=== PATIENT | female | born 1995 | race Caucasian/White ===

== ENCOUNTER 2019-10-01 03:43 | Inpatient (IN) | payer OTHER ==
[2019-10-01] MEDS ORDERED: MEPERIDINE HCL 25 MG/ML SYR IV PRN (04:14)
[2019-10-01] MEDS ORDERED: Ringers Lactate 1,000 ML IV PRN (04:14)
[2019-10-01] MEDS ORDERED: MIDAZOLAM HCL 2 MG/2 ML INJ IV PRN (04:14)
[2019-10-01] MEDS ORDERED: BUTORPHANOL 1 MG/ML INJ IV PRN (04:14)
[2019-10-01] MEDS ORDERED: METHYLERGONOVINE 0.2MG/ML AMP IM PRN (04:14)
[2019-10-01] MEDS ORDERED: PROMETHAZINE INJ 25 MG/ML AMP IM PRN (04:14)
[2019-10-01] MEDS ORDERED: CARBOPROST TROME 250 MCG/ML IM PRN (04:14)
[2019-10-01 04:47] LABS: Urine Appearance TURBID; Urine Bilirubin NEGATIVE (NEG); Urine Blood NEGATIVE (NEG); Urine Color YELLOW; Urine Glucose NEGATIVE (NEG); Urine Protein NEGATIVE (NEG); Urine Specific Gravity 1.015 (1.005-1.030); Urine Urobilinogen 0.2 mg/dL (0.2-1.0)
[2019-10-01 04:48] LABS: Urine Microscopic Reflex ORDER UMIC
[2019-10-01 04:50] LABS: Absolute Lymphocytes (CBC) 2.4 K/uL (0.7-4.9); Basophils % 0.2 % (0-1.3); Hematocrit 35.5 % (36.0-45.0); Lymphocytes % 16.1 % (15.3-44.8); RBC Red Blood Cell Count 4.05 M/uL (3.86-4.86)
[2019-10-01 04:59] LABS: Urine Culture Reflex Order REFLEXED
[2019-10-01 05:00] LABS: Calcium Oxalate Crystals- Ur FEW (NONE SEEN); Urine Amorphous Sediment 4+ /HPF (NONE SEEN); Urine Bacteria <20 /HPF (<20); Urine RBC NONE SEEN /HPF (NONE SEEN)
[2019-10-01] MEDS ORDERED: OXYTOCIN/LR 20 UNIT/1,000 ML BAG IV SCH ×2 (05:00→10:00)
[2019-10-01] MEDS ORDERED: Ringers Lactate 1,000 ML IV SCH (05:00)
[2019-10-01 05:51] VITALS: BMI 33.5
[2019-10-01] MEDS ORDERED: LIDOCAINE 1% MPF 30 ML VIAL ONE (08:32)
--- NOTE | 2019-10-01 08:44 | PREOPHP ---
Date of Admission: 10/01/2019 Ms. Rae Gomez is a 24-year-old 2, para 1, 39 weeks 1 day, Rh positive, immune to Rub judi. Negative beta strep screen. 3.5 cm, still somewhat posterior, 50% effaced, vertex, -1 station . Rupture of membranes, clear fluid. Maki regularly. Baby looks good on the monitor. Patirani nt states that the baby has been very active. Labor talk given. Patient is planning on natural chil dbirth. Anticipate more rapid delivery once she achieves 5 cm. SERGIO/POLA Voice ID: [id number]
[2019-10-01] MEDS ORDERED: ACETAMINOPHEN 500 MG TAB PO PRN (09:33)
[2019-10-01] MEDS ORDERED: DOCUSATE NA/SENNA CONC 1 TAB PO PRN (09:33)
[2019-10-01] MEDS ORDERED: BISACODYL 10 MG RECTAL SUPP RC PRN (09:33)
[2019-10-01] MEDS ORDERED: IBUPROFEN 600 MG TAB PO PRN (09:33)
[2019-10-01] MEDS ORDERED: Oxycodone HCl/Acetaminophen 1 TAB TAB PO PRN ×2 (09:33)
[2019-10-01] MEDS ORDERED: DIPHENHYDRAMINE 25 MG TAB/CAP PO PRN (09:33)
--- NOTE | 2019-10-01 11:00 | OP ---
Surgeon: Randy Ybarra MD History: A 24-year-old 2, para 1, 39 weeks 1 day, Rh positive, immune to Rubella. Negative beta strep screen, followed antepartum without complications. 3.5 cm when examined this morning. Ru pture of membranes, clear fluid. Patient went natural childbirth second stage of about 25 to 30 maciel wiliam, spontaneous vaginal delivery over a small first degree episiotomy of a 10-pound 2-ounce male Apg ars 9 and 9. Schultze delivery of the placenta, which was inspected and noted be intact and normal. Less than 300 mL blood loss. No signs of hypotonus at this point. Repair with local anesthetic of the first degree episiotomy. Patient tolerated all procedures well. Final Diagnoses: Term intrauterine 39 weeks 1 day, vaginal delivery. macrosomia. SERGIO/POLA Voice ID: [id number] Report ID: [id number]
[2019-10-01] MEDS ORDERED: Ringers Lactate 1,000 ML IV ONE (15:18)
[2019-10-02 03:35] LABS: RPR (Rapid Plasma Reagin) NON-REACT (NON-REACT)
[2019-10-02 07:01] VITALS: BP 122/63; TEMP 97.1
--- NOTE | 2019-10-02 07:52 | DS ---
Hospital Course: Rae Gomez is a 24-year-old 2, para 1, at 39 weeks 1 day, delivered uneventfully of a 10 pounds 2 ounces male , Apgars 9 and 9. Small first degree episiotomy rep aired with 2-0 chromic. Schultze delivery of the placenta, was inspected and noted be intact and nor mal. Less than 300 mL blood loss. Rh positive, immune to Rubella. Negative beta strep screen. Pos tpartum is afebrile, ambulating and voiding. No problems reported. She requested no analgesics on d ismissal. She has had her Tdap immunization. Final Diagnoses: Term intrauterine 39 weeks 1 day, vaginal delivery, macrosomia. SERGIO/POLA Voice ID: [id number] Report ID: [id number]
[2019-10-05 04:24] LABS: HBsAG Nonreactive (Nonreactive)
== END 2019-10-02 11:20 | disposition home or self-care (01) | DRG 807 ==
LOC: 2ND-WC 03:43
PROVIDERS: ADMIT Specialist; ATTEND Specialist
PROC: 10E0XZZ Delivery of Products of Conception, External Approach (ICD-10-PCS; principal; 2019-10-01)
PROC: 10907ZC Drainage of Amniotic Fluid, Therapeutic from Products of Conception, Via Natural or Artificial Opening (ICD-10-PCS; 2019-10-01)
PROC: 0W8NXZZ Division of Female Perineum, External Approach (ICD-10-PCS; 2019-10-01)
DX: O36.63X0 Maternal care for excessive fetal growth, third trimester, not applicable or unspecified (principal); Z37.0 Single live birth; Z3A.39 39 weeks gestation of pregnancy
CPT/HCPCS: 36415; 80048; 80076; 81001; 81003; 81015; 84550; 85025; 85610; 85730; 86592; 87086; 87088; 87340; 99218; J0595; J2210; J2550; J2590; J7120

== ENCOUNTER 2019-11-11 07:38 | Day surgery (SDC) | payer OTHER ==
[2019-11-03 16:29] LABS: ALT/SGPT 38 U/L (12-78); AST/SGOT 24 U/L (15-37); Albumin 4.4 g/dL (3.4-5.0); Alkaline Phosphatase 81 U/L (45-117); Amylase 28 U/L (25-115); BUN Blood Urea Nitrogen 9 mg/dL (7-18); Bicarbonate 29 mmol/L (21-32); Bilirubin Direct < 0.1 mg/dL (0-0.2); Bilirubin Total 0.5 mg/dL (0.2-1.0); Glucose Level 91 mg/dL (74-106); Protein, Total 8.8 g/dL (6.4-8.2); Sodium Level 138 mmol/L (136-145)
[2019-11-03 16:31] LABS: Basophils % 0.4 % (0-1.3); Lymphocytes % 22.2 % (15.3-44.8); RBC Red Blood Cell Count 4.92 M/uL (3.86-4.86)
--- OUTSIDE RECORDS SUMMARY | 2019-11-11 07:44 | XMS REPORT | Summary of Care ---
:1995 Author Organization [facility] Address [address] [place] [id number] Care Team Providers Name Role Phone Jaye Nunez Primary Care Provider Reason for Visit Reason Comments Back Pain Rib Pain Encounter Details Date Type Department Care Team Description 10/23/2019 Urgent Care [facility] Family Vibha Contreras FNP [id number] [place] [address] Tachycardia (Primary Dx); Medicine - [place] Provider, [facility] Acute left-sided thoracic back pain; [address] [place] [address] SOB (short ness of breath) on [place] [address] Allergies Active Allergy Reactions Severity Noted Date Comments Copper Itching 02/10/2013 documented as of this encounter (statuses as of 10/23/2019) Medications Medication Sig Dispensed Refills Start Date End Date Status PNV Take by mouth. 0 Acti ve no.153/FA/om3/dha/epa/fi sh ( GUMMIES ORAL) Miscellaneous Medical Use as directed 1 Each 0 08/04/2019 Active Supply (BLOOD PRESSURE CUFF) MiscIndications: High-risk in third trimester documented as of this encounter (statuses as of 10/23/2019) Active Problems Problem Noted Date Constipation during , antepartum 03/03/2019 Multiparity 02/03/2019 High-risk in second trimester 02/03/2019 Influenza vaccination declined 02/03/2019 BMI 28.0-28.9,adult 10/31/2018 Estimated Date of Delivery Comments Yes 10/07/2019 Based on last menstr ual period of 12/31/2018 documented as of this encounter (statuses as of 10/23/2019) Resolved Problems Problem Noted Date Resolved Date Attempted IUD removal, unsuccessful 10/31/201801/15 Desire for 10/31/2018 02/03/2019 General counseling for prescription of oral contraceptives 1 10/31/2018 Encounter for routine gynecological examination 02/10/2013 10/31/2018 Overview: ICD10 Diagnosis Term [employer] Utility documented as of this encounter (statuses as of 10/23/2019) Immunizations Name Administration Dates Next Due TDAP 12/11/2009 TDAP (ADACEL) VACCINE 07/18/2019 documented as of this encounter Social History Tobacco Use Types Packs/Day Years Used Date Never Smoker Smokeless Tobacco: Never Used Alcohol Use Drinks/Week oz/Week Comments No Estimated Date of Delivery Comments Yes 10/07/2019 Based on last menstr ual period of 12/31/2018 Sex Assigned at Date Recorded Not on file Job Start Date Occupation Industry Not on file Not on file Not on file Travel History Travel Start Travel End No recent travel history available. COVID-19 Exposure Response Date Recorded In the last month, have you been in contact with Yes 10/23/2019 4:07 PM CDT someone who was confirmed or suspected to have Coronavirus / COVID-19? documented as of this encounter Last Filed Vital Signs Vital Sign Reading Time Taken Comments Blood Pressure 169/145 10/23/2019 4:11 PM CDT Pulse 160 10/23/2019 4:11 PM CDT Temperature 36.8 C (98.3 F) 10/23/2019 4:11 PM CDT Respiratory Rate 32 10/23/2019 4:11 PM CDT Oxygen Saturation 98% 10/23/2019 4:11 PM CDT Inhaled Oxygen Concentration - - Weight 77.6 kg (171 lb) 10/23/2019 4:11 PM CDT Height 162.6 cm (5' 4") 10/23/2019 4:11 PM CDT Body Mass Index 29.35 10/23/2019 4:11 PM CDT documented in this encounter Progress Notes [place], BENJY - 10/23/2019 4:40 PM CDT COVID-19 Screening Clinic: [facility] Patient Name: Rae Gomez Date of : 1995 24 year old Primary Care Physician: Jaye Nunez During this visit: Full PPE was used, mask, face shield, gown, and gloves Chief Complaint Chief Complaint Patient presents with Back Pain Rib Pain HPI Presenting with severe left upper back pain, rib pain and SOB that started this morning, patient states she thought it could be related to being gassy from uncooked oleary that she ate this morning but symptoms got worse. Patient states she can not take a deep breath due to the severe pain. Patient in tears due to pain, saying she can not breathe. Patient delivered a healthy baby about 3 weeks ago andreports she had ankle pain a week later but "my doctor was not worried about a blood clot" Past Medical History / Immunizations Past Medical History: Diagnosis Date Anemia during Kidney infection 06/03/2014 Past Surgical History No past surgical history on file. Allergies Allergies Allergen Reactions Copper Itching Review of Systems Review of Systems Constitutional: Negative for fever. Respiratory: Positive for shortness of breath. Negative for cough. Cardiovascular: Positive for chest pain and palpitations. Gastrointestinal: Negative for abdominal pain, diarrhea, nausea and vomiting. Musculoskeletal: Positive for back pain. Negative for gait problem. Skin: Negative for rash and wound. Neurological: Negative for weakness and headaches. Psychiatric/Behavioral: Negative for agitation and confusion. The patient is not nervous/anxious. All other systems reviewed and are negative. Physical Exam BP (!) 169/145 | Pulse 160 | Temp 36.8 C (98.3 F) (Oral) | Resp 18 | Ht 5' 4" (1.626 m) | Wt 171 lb (77.6 kg) | LMP 12/31/2018 | SpO2 98% | BMI 29.35 kg/m Physical Exam Constitutional: She is oriented to person, place, and time. She appears well- developed and well-nourished. She is active and cooperative. Non-toxic appearance. She does not have a sickly appearance. She appears ill. No distress. HENT: Head: Normocephalic and atraumatic. Right Ear: Hearing, tympanic membrane, external ear and ear canal normal. Left Ear: Hearing, tympanic membrane, external ear and ear canal normal. Nose: Nose normal. Right sinus exhibits no maxillary sinus tenderness and no frontal sinus tenderness. Left sinus exhibits no maxillary sinus tenderness and no frontal sinus tenderness. Mouth/Throat: Uvula is midline, oropharynx is clear and moist and mucous membranes are normal. No oropharyngeal exudate. Eyes: Pupils are equal, round, and reactive to light. Conjunctivae and EOM are normal. Right eye exhibits no discharge. Left eye exhibits no discharge. Neck: Normal range of motion. Neck supple. Cardiovascular: Regular rhythm and normal heart sounds. Tachycardia present. Pulmonary/Chest: Effort normal and breath sounds normal. Tachypnea noted. No respiratory distress. She has no wheezes. She has no rales. She exhibits no tenderness. Musculoskeletal: Normal range of motion. She exhibits no edema, tenderness or deformity. Neurological: She is alert and oriented to person, place, and time. Skin: Skin is warm and dry. No rash noted. She is not diaphoretic. No erythema. No pallor. Psychiatric: Her speech is normal and behavior is normal. Judgment and thought content normal. Her mood appears anxious. Cognition and memory are normal. Nursing note and vitals reviewed. Labs No results found for this or any previous visit (from the past 24 hour(s)). No results found. Orders and Treatments No orders of the defined types were placed in this encounter. Outpatient Encounter Medications as of 10/23/2019 Medication Sig Miscellaneous Medical Supply (BLOOD PRESSURE CUFF) [facility] Use as directed PNV no.153/FA/om3/dha/epa/fish ( GUMMIES ORAL) Take by mouth. No results found for this visit on 10/23/19. Diagnosis Patient ill appearing, tachypneic, tachycardia on exam Patient has left upper back pain that is severe and she states she is unable to take a deep breath due to "rib pain" Denies any falls or trauma. Appears anxious and crying in room due to pain. Report called to ER charge. Patient wheeled over to ER for further workup COVID swab was not completed. Rae was seen today for back pain and rib pain. Diagnoses and all orders for this visit: Tachycardia Acute left-sided thoracic back pain SOB (shortness of breath) on exertion Disposition & Follow Up ER for further work-up BENJY Cullen 10/23/2019 4:14 PM documented in this encounter Plan of Treatment Health Maintenance Due Date Last Done Comments HPV VACCINES (1 - Female 11/01/2019 Postpon ed from 2-dose series) 06/19/2006 (Refu sed) CHLAMYDIA SCREENING 02/04/2020 02/03/2019, 10/31/2018 INFLUENZA VACCINE (#1) 2020 Postponed from 12/16/2019 (Refu sed) Depression Screening 07/17/2020 07/18/2019 PAP SMEAR 10/31/2021 10/31/2018 DTaP,Tdap,and Td Vaccines (3 07/17/2029 07/18/2019, - Td) 12/11/2009 MENINGOCOCCAL B VACCINES Discontinued PNEUMOCOCCAL 0-64 YEARS Aged Out No longe r eligible based COMBINED SERIES on patient's age to complete this to [facility] documented as of this encounter Results Not on filedocumented in this encounter Visit Diagnoses Diagnosis Tachycardia - Primary Tachycardia, unspecified Acute left-sided thoracic back pain SOB (shortness of breath) on exertion Shortness of breath documented in this encounter Insurance Payer Benefit Plan / Subscriber ID Effective Dates Phone Addre ss Type Group [place] [employer] [place] [employer] xxxxxxxxx 2019-Presen Medicaid HEALTH PLAN - HEALTH t MANAGED MEDICAID documented as of this encounter Advance Directives Name Relationship Healthcare Agent Relationship Co mmunication James Mccollum Father Primary healthcare agent Vidal Gomez Spouse Primary healthcare agent Ellecullen Mccollum Mother Second alternate healthcare agent (Mobile)
--- OUTSIDE RECORDS SUMMARY | 2019-11-11 07:44 | XMS REPORT | Continuity of Care Document ---
:1995 Author Organization [facility] t Address [address] [place] [address] Care Team Providers Name Role Phone Provider, Urgent Care Attending Clinician Unavailable Mayi Tovar Attending Clinician Doctor Unassigned, Name Attending Clinician Unavailable Caden Perla Attending Clinician Problems This patient has no known problems. Allergies, Adverse Reactions, Alerts This patient has no known allergies or adverse reactions. Medications This patient has no known medications. Procedures This patient has no known procedures. Encounters Start End Encounter Admission Attending Care Care Encounter Source Date/Time Date/Time Type Type Clinicians Facility Department ID 2019-10-23 2019-10-23 Urgent Provider, [facility] [id number] 16:04:56 16:24:56 [facility] [id number] [facility] [id number] Professio [id number] [address]al [address] 2019-08-04 2019-08-04 Telemedici Jered [facility] [id number] 12:33:29 14:43:25 ne Visit Altagracia C [employer] PUBL[employer] [id number] REGIONAL [id number] MATERNAL [phone] & CHILD [facility] 2019-08-01 2019-08-01 Telephone RADHA Lawton [id number] 00:00:00 00:00:00 Altagracia C [employer]AZINE PUBLISHER [id number] REGIONAL [id number] MATERNAL [id number] & CHILD 107 [facility] 2019-07-29 2019-07-29 Telephone [facility] [id number] 00:00:00 00:00:00 Altagracia C MAGAZINE PUBLISHER [id number] [facility] [id number] MATERNAL [phone] & CHILD 107 [facility] 2019-07-18 2019-07-18 Routine [facility] [id number] 14:00:22 14:15:22 Altagracia C MAGAZINE PUBLISHER [id number] [facility] [id number] MATERNAL [id number] & CHILD 107 [facility] 2019-07-18 2019-07-18 Orders Doctor JOE [id number] 00:00:00 00:00:00 Only Unassigned, GLADYS [id number] [place] [facility] [id number] 2019-07-08 2019-07-09 Telemedici [facility] [id number] 08:22:02 15:52:14 ne Visit Jaye Negrete [employer]INE PUBL[employer] [id number] [facility] [id number] MATERNAL [phone] & CHILD 107 [facility] Results This patient has no known results.
[2019-11-11] MEDS ORDERED: Ringers Lactate 1,000 ML IV ONE ×2 (08:19→10:36)
[2019-11-11 08:30] LABS: Bilirubin Direct 0.1 mg/dL (0-0.2); Bilirubin Total 0.5 mg/dL (0.2-1.0); Protein, Total 8.5 g/dL (6.4-8.2)
[2019-11-11] MEDS ORDERED: FENTANYL CITR 100 MCG/2 ML ONE ×2 (08:32→10:09)
[2019-11-11] MEDS ORDERED: propofoL 200 MG/20 ML VIAL IV ONE (08:32)
[2019-11-11] MEDS ORDERED: ROCURONIUM 50 MG/5 ML VIAL IV ONE (08:33)
[2019-11-11] MEDS ORDERED: dexAMETHasone 10 MG/ML VIAL ONE (08:33)
[2019-11-11] MEDS ORDERED: MIDAZOLAM HCL 2 MG/2 ML INJ ONE (08:33)
[2019-11-11] MEDS ORDERED: LIDOCAINE 2% MPF 5 ML VIAL ONE (08:33)
[2019-11-11] MEDS ORDERED: KETOROLAC 30 MG/ML INJ ONE (08:34)
[2019-11-11] MEDS ORDERED: ONDANSETRON 4 MG/2 ML VIAL ONE (08:34)
[2019-11-11] MEDS ORDERED: CEFOXITIN/SWI 1gm 1 GM/10 ML SYR ONE (09:00)
[2019-11-11] MEDS ORDERED: GLYCOPYRROLATE 0.2 MG/ML SYR ONE (10:21)
[2019-11-11] MEDS ORDERED: NEOSTIGMINE 1 MG/ML -5 ML ONE (10:29)
[2019-11-11] MEDS ORDERED: Mastisol Adhesive Liq ONE (10:30)
[2019-11-11] MEDS: MEPERIDINE HCL 25 MG/ML SYR ONE ×2 (10:59→11:04)
[2019-11-11] MEDS: HYDROMORPHONE HCL 1 MG/ML INJ ONE ×2 (11:08→11:17)
[2019-11-11] MEDS ORDERED: PROMETHAZINE INJ 25 MG/ML AMP ONE (11:18)
[2019-11-11 11:45] VITALS: TEMP 97.9; O2SAT 100
[2019-11-11] MEDS ORDERED: HYDROCODONE/APAP 7.5/325 MG TAB ONE (12:04)
--- NOTE | 2019-11-11 12:16 | OP ---
Surgeon: Miguel Angel Walsh MD Unable to transcribe due to discernible audio /MODL Voice ID: [id number] Report ID: [id number]
[2019-11-11 12:45] VITALS: BP 141/73
--- NOTE | 2019-11-12 10:50 | OP ---
Surgeon: Miguel Angel Walsh MD Air Vice Marshal: MUKESH Zaidi. Preoperative Diagnoses: Chronic cholecystitis and cholelithiasis. Postoperative Diagnoses: Chronic cholecystitis and cholelithiasis. Procedure: Laparoscopic cholecystectomy. Estimated Blood Loss: Minimal. Specimen: Gallbladder. Findings: As above. Anesthesia: General. Complications: None. Disposition: The patient tolerated the procedure in stable condition, taken to Recovery in good gene ral condition. Description Of Procedure: The patient was brought to the OR and placed in supine position. General anesthesia was begun. The patient was prepped and draped in usual sterile fashion. Marcaine 0.5% wa s infiltrated locally. A 15-blade was used to make a 1 cm infraumbilical midline incision. Subcutan eous tissue was divided. Fascia was identified and divided. #1 Vicryl stay suture was placed. Stephanie toneal cavity was entered with blunt dissection. 12 mm trocar was placed into the peritoneal cavity under direct vision. Pneumoperitoneum was established and three 5 mm trocars were placed; 1 in the e pigastrium just to the right of midline and 2 in the right subcostal region. Laparoscopy revealed ch ronic inflammation of the gallbladder. Fundus retracted superiorly. Infundibulum was identified and retracted inferolaterally. Cystic duct and cystic artery were clearly identified with blunt dissect ion. Clips placed. Both structures divided. Cautery was used to remove the gallbladder from the li gail bed. Bleeding on the liver bed controlled with cautery. Gallbladder was retrieved through the u mbilicus via an EndoCatch bag. Right upper quadrant was examined. No evidence of bleeding or bile l eakage appreciated. Subsequently, all trocars were removed under direct vision. Stay sutures were t ied to each other to reapproximate the fascial defect. Subcutaneous wounds were irrigated. Bleeding controlled with cautery. 3-0 chromic used to approximate the subcutaneous tissue and close the skin. Sterile dressing was applied. The patient was awakened and taken to Recovery in good general condi tion. Discharge Note: The patient will go to Day Surgery and home when stable. Disposition: Home. Condition: Stable. Discharge Instructions: Resume home medications and diet. Activity as tolerated. No heavy lifting. Follow up in my office in 1 week. Call for appointment. Tylenol No. 3 one tablet p.o. q.4 p.r.n. pain. Remove outer dressing in 2 days. Shower. Keep wound clean and dry. Keep Steri-Strips on at all times and incentive spirometry as ordered. FLOYD/POLA Voice ID: [id number] Report ID: [id number]
== END 2019-11-11 12:35 | disposition home or self-care (01) ==
LOC: OR 07:38
PROVIDERS: ATTEND Surgery
PROC: 0FT44ZZ Resection of Gallbladder, Percutaneous Endoscopic Approach (ICD-10-PCS; principal; 2019-11-11 09:30)
DX: K80.10 Calculus of gallbladder with chronic cholecystitis without obstruction (principal); K21.9 Gastro-esophageal reflux disease without esophagitis; Z11.59 Encounter for screening for other viral diseases
CPT/HCPCS: 47562; 85025; 80048; 36415 ×2; 82150 ×2; 81025; 80076 ×2; 88304; 83690; U0002; J2704; J2550; J2250; J3010 ×2; J1100; J2175; J1170; J2710; J7120 ×2; J2405

== ENCOUNTER 2021-06-21 12:40 | Emergency (ER) | payer OTHER ==
--- OUTSIDE RECORDS SUMMARY | 2021-06-21 12:46 | XMS REPORT | Continuity of Care Document ---
:1995 Author Organization [facility] [place] t Address [address] [place] [address] Care Team Providers Name Role Phone Jennifer RICH Primary Care Physician Unavailable EZE Attending Clinician Unavailable Jennifer RICH Attending Clinician Unavailable Krzysztof RN, Mayra Attending Clinician Unavailable Roman CHANP, N Attending Clinician Hilario CHANP, R Attending Clinician Lab Attending Clinician Unavailable Grazyna Vogel Attending Clinician Doctor Unassigned, Name Attending Clinician Unavailable Visit, Nurse Attending Clinician Unavailable Caden OWENS Attending Clinician Unavailable Jurgen Goodman DO Attending Clinician Provider, Urgent Care Attending Clinician Unavailable Diane CTE TEACHER Attending Clinician FAYNE Attending Clinician Unavailable Nurse, Urgent Care Attending Clinician Unavailable Catalina Saldaña PA-C Attending Clinician Catalina SALDAÑA JR Attending Clinician Unavailable Maria L LOMELI Attending Clinician Unavailable Mayi COLINDRES Attending Clinician Unavailable Mayi Tovar Attending Clinician Mitesh Dyer MD Attending Clinician Resident Tanner Attending Clinician Unavailable Dayami Thompson Attending Clinician MITESH DYER Admitting Clinician Unavailable Mitesh Dyer MD Admitting Clinician Payers Payer Name Policy Type Policy Number Effective Date Expiration Date Grazyna OCHOA [id number] 2019 HEALTH 00:00:00 Advance Directives Directive Decision Effective Termination Comments Source Date Date Healthcare Agents on N/A Univ ersity FileNameRelationshSt[facility] [place] [facility] Agent Medical RelationshipCommunicationJocarondelet health Branch Mitchel [facility]Geising[facility] Care [phone] (Mobile) [email or web address] [facility] [phone] (Mobile) Problems Condition Condition Condition Status Onset Resolution Last Treating Co mments Source Name Details Category Date Date Treatment Clinician Date Rubella Rubella Disease Active Overview: Univ ers non-immune non-immune 07-22 Address i ty of status, status, 00:00: in [place] antepartum antepartum 00 postpartu [facility] m. [place] Clotting Clotting Disease Active Unive rs disorder disorder - ity of 00:00: [address] Obesity in Obesity in Disease Active U nivers 07-21 ity of 00:00: [address] BMI BMI Disease Active Univers 30.0-30.9, 30.0-30.9, 4-07 it y of adult adult 00:00: [address] Short Short Disease Active Univers interval interval 4-07 ity of between between 00:00: [place] pregnancie pregnancie 00 Me dical s s Branch affecting affecting in first in first trimester, trimester, antepartum antepartum Cramping Cramping Disease Active Unive rs affecting affecting 4-07 ity [place] , , [place] ante[place] antepartum 00 Me dical Branch Constipati Constipati Disease Active 2018- U nivers on during on during 1-18 ity of , , [place] ante[place] antepartum 00 Me dical Branch Multiparou Multiparou Disease Active 2018-04 U nivers s s 0-21 ity of 00:00: [place] [address] Medical Branch Supervisio Supervisio Disease Active 2018-04 U nivers n of high n of high 0-21 ity of risk risk 00:00: [place] , , 00 Me dical antepartum antepartum Br anch Influenza Influenza Disease Active 2018-04 Uni vers vaccinatio vaccinatio 0-21 it y of n declined n declined 00:00: [facility] Medical Branch Attempted Attempted Disease Active Uni vers IUD IUD 7-18 ity of removal, removal, 00:00: [place] unsuccessf unsuccessf 00 Me dical ul ul Branch BMI BMI Disease Active Univers 28.0-28.9, 28.0-28.9, 7-18 it y of adult adult 00:00: [place] [address] [facility] [place] Desire for Desire for Disease Active U nivers 7-18 ity of 00:00: [place] [address] [facility] [place] Allergies, Adverse Reactions, Alerts Allergy Allergy Status Severity Reaction(s) Onset Inactive Treating Comm ents Source Name Type Date Date Clinician COPPER DRUG Active ITCHING 2012-04 Univers INGREDI 0-28 ity of 00:00: [place] [address] [facility] [place] Copper Propensi Active Itching 2012-04 Univers ty to 0-28 ity of adverse 00:00: [place] reaction 00 Medical s [place] Social History Social Habit Start Date Stop Date Quantity Comments Source ASSERTION 2020-06-24 [facility] 00:00:00 [facility] [place] [facility] Exposure to Not sure [facility] SARS-CoV-2 [facility] (event) Branch Tobacco use and 2020-07-30 2020-07-30 Never used Universit y of exposure 00:00:00 00:00:00 [facility] [place] [facility] Alcohol intake 2020-07-30 2020-07-30 Ex-drinker University 00:00:00 00:00:00 (finding) [facility] [place] [facility] Sex Ass[birth year] Universit y of 00:00:00 00:00:00 [facility] [place] [facility] Smoking Status Start Date Stop Date Source Never smoker [facility] Medications Ordered Filled Start Stop Current Ordering Indication Dosage Frequency Signature Comments Components Source Medication Medication Date Date Medication? Clinician (SIG) Name Name Blood-Gluco Yes [id number] Use as Univers se Meter 4-08 directed ity of (FREESTYLE 00:00: [place] FREEDOM 00 Medical LITE) Kit Branch blood sugar 2021-0 Yes [id number] Use as Univers diagnostic 4-08 directed ity o f (FREESTYLE 00:00: [place] LITE 00 Medical STRIPS) Branch strip lancets 17 2020-0 Yes [id number] Use as U nivers gauge Misc 4-08 directed ity o f 00:00: [place] 00 Medical Branch Blood-Gluco 2020-0 Yes [id number] Use as Univers se Meter 4-08 directed ity of (FREESTYLE 00:00: [place] FREEDOM 00 Medical LITE) Kit Branch blood sugar 2020-0 Yes [id number] Use as Univers diagnostic 4-08 directed ity o f (FREESTYLE 00:00: [place] LITE 00 Medical STRIPS) Branch strip lancets 17 2020-0 Yes [id number] Use as U nivers gauge Misc 4-08 directed ity o f 00:00: [place] 00 Medical Branch Blood-Gluco 2020-0 Yes [id number] Use as Univers se Meter 4-08 directed ity of (FREESTYLE 00:00: [place] FREEDOM 00 Medical LITE) Kit Branch blood sugar 2020-0 Yes [id number] Use as Univers diagnostic 4-08 directed ity o f (FREESTYLE 00:00: [place] LITE 00 Medical STRIPS) Branch strip lancets 17 2020-0 Yes [id number] Use as U nivers gauge Misc 4-08 directed ity o f 00:00: [place] 00 Medical Branch Blood-Gluco 2020-0 Yes [id number] Use as Univers se Meter 4-08 directed ity of (FREESTYLE 00:00: [place] FREEDOM 00 Medical LITE) Kit Branch blood sugar 2020-0 Yes [id number] Use as Univers diagnostic 4-08 directed ity o f (FREESTYLE 00:00: [place] LITE 00 Medical STRIPS) Branch strip lancets 17 2020-0 Yes [id number] Use as U nivers gauge Misc 4-08 directed ity o f 00:00: [place] 00 Medical Branch Blood-Gluco 2020-0 Yes [id number] Use as Univers se Meter 4-08 directed ity of (FREESTYLE 00:00: [place] FREEDOM 00 Medical LITE) Kit Branch blood sugar 2020-0 Yes [id number] Use as Univers diagnostic 4-08 directed ity o f (FREESTYLE 00:00: [place] LITE 00 Medical STRIPS) Branch strip lancets 17 2020-0 Yes [id number] Use as U nivers gauge Misc 4-08 directed ity o f 00:00: [place] 00 Medical Branch Blood-Gluco 2020-0 Yes [id number] Use as Univers se Meter 4-08 directed ity of (FREESTYLE 00:00: [place] FREEDOM 00 Medical LITE) Kit Branch blood sugar 2020-0 Yes [id number] Use as Univers diagnostic 4-08 directed ity o f (FREESTYLE 00:00: [place] LITE 00 Medical STRIPS) Branch strip lancets 17 2020-0 Yes [id number] Use as U nivers gauge Misc 4-08 directed ity o f 00:00: [place] 00 Medical Branch Blood-Gluco 2020-0 Yes [id number] Use as Univers se Meter 4-08 directed ity of (FREESTYLE 00:00: [place] FREEDOM 00 Medical LITE) Kit Branch blood sugar 2020-0 Yes [id number] Use as Univers diagnostic 4-08 directed ity o f (FREESTYLE 00:00: [place] LITE 00 Medical STRIPS) Branch strip lancets 17 2020-0 Yes [id number] Use as U nivers gauge Misc 4-08 directed ity o f 00:00: [place] 00 Medical Branch Blood-Gluco 2020-0 Yes [id number] Use as Univers se Meter 4-08 directed ity of (FREESTYLE 00:00: [place] FREEDOM 00 Medical LITE) Kit Branch blood sugar 2020-0 Yes [id number] Use as Univers diagnostic 4-08 directed ity o f (FREESTYLE 00:00: [place] LITE 00 Medical STRIPS) Branch strip lancets 17 2020-0 Yes [id number] Use as U nivers gauge Misc 4-08 directed ity o f 00:00: [place] 00 Medical Branch Blood-Gluco 2020-0 Yes [id number] Use as Univers se Meter 4-08 directed ity of (FREESTYLE 00:00: [place] FREEDOM 00 Medical LITE) Kit Branch blood sugar 2020-0 Yes [id number] Use as Univers diagnostic 4-08 directed ity o f (FREESTYLE 00:00: [place] LITE 00 Medical STRIPS) Branch strip lancets 17 2020-0 Yes [id number] Use as U nivers gauge Misc 4-08 directed ity o f 00:00: [place] 00 Medical Branch Blood-Gluco 2020-0 Yes [id number] Use as Univers se Meter 4-08 directed ity of (FREESTYLE 00:00: [place] FREEDOM 00 Medical LITE) Kit Branch blood sugar 2020-0 Yes [id number] Use as Univers diagnostic 4-08 directed ity o f (FREESTYLE 00:00: [place] LITE 00 Medical STRIPS) Branch strip lancets 17 2020-0 Yes [id number] Use as U nivers gauge Misc 4-08 directed ity o f 00:00: [place] 00 Medical Branch Blood-Gluco 2020-0 Yes [id number] Use as Univers se Meter 4-08 directed ity of (FREESTYLE 00:00: [place] FREEDOM 00 Medical LITE) Kit Branch blood sugar 2020-0 Yes [id number] Use as Univers diagnostic 4-08 directed ity o f (FREESTYLE 00:00: [place] LITE 00 Medical STRIPS) Branch strip lancets 17 2020-0 Yes [id number] Use as U nivers gauge Misc 4-08 directed ity o f 00:00: [place] 00 Medical Branch Blood-Gluco 2020-0 Yes [id number] Use as Univers se Meter 4-08 directed ity of (FREESTYLE 00:00: [place] FREEDOM 00 Medical LITE) Kit Branch blood sugar 2020-0 Yes [id number] Use as Univers diagnostic 4-08 directed ity o f (FREESTYLE 00:00: [place] LITE 00 Medical STRIPS) Branch strip lancets 17 2020-0 Yes [id number] Use as U nivers gauge Misc 4-08 directed ity o f 00:00: [place] 00 Medical Branch Blood-Gluco 2020-0 Yes [id number] Use as Univers se Meter 4-08 directed ity of (FREESTYLE 00:00: [place] FREEDOM 00 Medical LITE) Kit Branch blood sugar 2020-0 Yes [id number] Use as Univers diagnostic 4-08 directed ity o f (FREESTYLE 00:00: [place] LITE 00 Medical STRIPS) Branch strip lancets 17 2020-0 Yes [id number] Use as U nivers gauge Misc 4-08 directed ity o f 00:00: [place] 00 Medical Branch Blood-Gluco 2020-0 Yes [id number] Use as Univers se Meter 4-08 directed ity of (FREESTYLE 00:00: [place] FREEDOM 00 Medical LITE) Kit Branch blood sugar 2020-0 Yes [id number] Use as Univers diagnostic 4-08 directed ity o f (FREESTYLE 00:00: [place] LITE 00 Medical STRIPS) Branch strip lancets 17 2020-0 Yes [id number] Use as U nivers gauge Misc 4-08 directed ity o f 00:00: [place] 00 Medical Branch Blood-Gluco 2020-0 Yes [id number] Use as Univers se Meter 4-08 directed ity of (FREESTYLE 00:00: [place] FREEDOM 00 Medical LITE) Kit Branch blood sugar 2020-0 Yes [id number] Use as Univers diagnostic 4-08 directed ity o f (FREESTYLE 00:00: [place] LITE 00 Medical STRIPS) Branch strip lancets 17 2020-0 Yes [id number] Use as U nivers gauge Misc 4-08 directed ity o f 00:00: [place] 00 Medical Branch Blood-Gluco 2020-0 Yes [id number] Use as Univers se Meter 4-08 directed ity of (FREESTYLE 00:00: [place] FREEDOM 00 Medical LITE) Kit Branch blood sugar 2020-0 Yes [id number] Use as Univers diagnostic 4-08 directed ity o f (FREESTYLE 00:00: [place] LITE 00 Medical STRIPS) Branch strip lancets 17 2020-0 Yes [id number] Use as U nivers gauge Misc 4-08 directed ity o f 00:00: [place] 00 Medical Branch Blood-Gluco 2020-0 Yes [id number] Use as Univers se Meter 4-08 directed ity of (FREESTYLE 00:00: [place] FREEDOM 00 Medical LITE) Kit Branch blood sugar 2020-0 Yes [id number] Use as Univers diagnostic 4-08 directed ity o f (FREESTYLE 00:00: [place] LITE 00 Medical STRIPS) Branch strip lancets 17 2020-0 Yes [id number] Use as U nivers gauge Misc 4-08 directed ity o f 00:00: [place] 00 Medical Branch Blood-Gluco 2020-0 Yes [id number] Use as Univers se Meter 4-08 directed ity of (FREESTYLE 00:00: [place] FREEDOM 00 Medical LITE) Kit Branch blood sugar 2020-0 Yes [id number] Use as Univers diagnostic 4-08 directed ity o f (FREESTYLE 00:00: [place] LITE 00 Medical STRIPS) Branch strip lancets 17 2020-0 Yes [id number] Use as U nivers gauge Misc 4-08 directed ity o f 00:00: [place] 00 Medical Branch Yes [id number] 1{packe Take 1 Univers vit 4-07 t} Packet by ity of 33-iron-fol 00:00: mouth [place] ic-dha 00 daily. Medical (SELECT-OB Branch + DHA) 29 mg iron-1 mg -250 mg combo pack Yes [id number] 1{packe Take 1 Univers vit 4-07 t} Packet by ity of 33-iron-fol 00:00: mouth [place] ic-dha 00 daily. Medical (SELECT-OB Branch + DHA) 29 mg iron-1 mg -250 mg combo pack Yes [id number] 1{packe Take 1 Univers vit 4-07 t} Packet by ity of 33-iron-fol 00:00: mouth [place] ic-dha 00 daily. Medical (SELECT-OB Branch + DHA) 29 mg iron-1 mg -250 mg combo pack Yes [id number] 1{packe Take 1 Univers vit 4-07 t} Packet by ity of 33-iron-fol 00:00: mouth [place] ic-dha 00 daily. Medical (SELECT-OB Branch + DHA) 29 mg iron-1 mg -250 mg combo pack Yes [id number] 1{packe Take 1 Univers vit 4-07 t} Packet by ity of 33-iron-fol 00:00: mouth [place] ic-dha 00 daily. Medical (SELECT-OB Branch + DHA) 29 mg iron-1 mg -250 mg combo pack Yes [id number] 1{packe Take 1 Univers vit 4-07 t} Packet by ity of 33-iron-fol 00:00: mouth [place] ic-dha 00 daily. Medical (SELECT-OB Branch + DHA) 29 mg iron-1 mg -250 mg combo pack Yes [id number] 1{packe Take 1 Univers vit 4-07 t} Packet by ity of 33-iron-fol 00:00: mouth [place] ic-dha 00 daily. Medical (SELECT-OB Branch + DHA) 29 mg iron-1 mg -250 mg combo pack Yes [id number] 1{packe Take 1 Univers vit 4-07 t} Packet by ity of 33-iron-fol 00:00: mouth [place] ic-dha 00 daily. Medical (SELECT-OB Branch + DHA) 29 mg iron-1 mg -250 mg combo pack Yes [id number] 1{packe Take 1 Univers vit 4-07 t} Packet by ity of 33-iron-fol 00:00: mouth [place] ic-dha 00 daily. Medical (SELECT-OB Branch + DHA) 29 mg iron-1 mg -250 mg combo pack Yes [id number] 1{packe Take 1 Univers vit 4-07 t} Packet by ity of 33-iron-fol 00:00: mouth [place] ic-dha 00 daily. Medical (SELECT-OB Branch + DHA) 29 mg iron-1 mg -250 mg combo pack Yes [id number] 1{packe Take 1 Univers vit 4-07 t} Packet by ity of 33-iron-fol 00:00: mouth [place] ic-dha 00 daily. Medical (SELECT-OB Branch + DHA) 29 mg iron-1 mg -250 mg combo pack Yes [id number] 1{packe Take 1 Univers vit 4-07 t} Packet by ity of 33-iron-fol 00:00: mouth [place] ic-dha 00 daily. Medical (SELECT-OB Branch + DHA) 29 mg iron-1 mg -250 mg combo pack Yes [id number] 1{packe Take 1 Univers vit 4-07 t} Packet by ity of 33-iron-fol 00:00: mouth [place] ic-dha 00 daily. Medical (SELECT-OB Branch + DHA) 29 mg iron-1 mg -250 mg combo pack Yes [id number] 1{packe Take 1 Univers vit 4-07 t} Packet by ity of 33-iron-fol 00:00: mouth [place] ic-dha 00 daily. Medical (SELECT-OB Branch + DHA) 29 mg iron-1 mg -250 mg combo pack Yes [id number] 1{packe Take 1 Univers vit 4-07 t} Packet by ity of 33-iron-fol 00:00: mouth [place] ic-dha 00 daily. Medical (SELECT-OB Branch + DHA) 29 mg iron-1 mg -250 mg combo pack Yes [id number] 1{packe Take 1 Univers vit 4-07 t} Packet by ity of 33-iron-fol 00:00: mouth [place] ic-dha 00 daily. Medical (SELECT-OB Branch + DHA) 29 mg iron-1 mg -250 mg combo pack Yes [id number] 1{packe Take 1 Univers vit 4-07 t} Packet by ity of 33-iron-fol 00:00: mouth [place] ic-dha 00 daily. Medical (SELECT-OB Branch + DHA) 29 mg iron-1 mg -250 mg combo pack Yes [id number] 1{packe Take 1 Univers vit 4-07 t} Packet by ity of 33-iron-fol 00:00: mouth [place] ic-dha 00 daily. Medical (SELECT-OB Branch + DHA) 29 mg iron-1 mg -250 mg combo pack Yes [id number] 1{packe Take 1 Univers vit 4-07 t} Packet by ity of 33-iron-fol 00:00: mouth [place] ic-dha 00 daily. Medical (SELECT-OB Branch + DHA) 29 mg iron-1 mg -250 mg combo pack Yes [id number] 1{packe Take 1 Univers vit 4-07 t} Packet by ity of 33-iron-fol 00:00: mouth [place] ic-dha 00 daily. Medical (SELECT-OB Branch + DHA) 29 mg iron-1 mg -250 mg combo pack Yes [id number] 1{packe Take 1 Univers vit 4-07 t} Packet by ity of 33-iron-fol 00:00: mouth [place] ic-dha 00 daily. Medical (SELECT-OB Branch + DHA) 29 mg iron-1 mg -250 mg combo pack Yes [id number] 1{packe Take 1 Univers vit 4-07 t} Packet by ity of 33-iron-fol 00:00: mouth [place] ic-dha 00 daily. Medical (SELECT-OB Branch + DHA) 29 mg iron-1 mg -250 mg combo pack Yes [id number] 1{packe Take 1 Univers vit 4-07 t} Packet by ity of 33-iron-fol 00:00: mouth [place] ic-dha 00 daily. Medical (SELECT-OB Branch + DHA) 29 mg iron-1 mg -250 mg combo pack cephALEXin 2020- No [id number] 500mg Take 1 Univers (KEFLEX) 3-12 03-20 capsule by ity of 500 mg 00:00: 04:59 mouth 3 [place] capsule 00 :00 (three) Medical times Branch daily for 7 days. norethindro Yes [id number] 1{tbl} Take 1 Univers ne 0.35 mg 1-12 tablet by ity of tablet 00:00: mouth [place] 00 daily. Medical Branch norethindro Yes [id number] 1{tbl} Take 1 Univers ne 0.35 mg 1-12 tablet by ity of tablet 00:00: mouth [place] 00 daily. Medical Branch norethindro Yes [id number] 1{tbl} Take 1 Univers ne 0.35 mg 1-12 tablet by ity of tablet 00:00: mouth [place] 00 daily. [facility] Branch norethindro Yes [id number] 1{tbl} Take 1 Univers ne 0.35 mg 1-12 tablet by ity of tablet 00:00: mouth [place] 00 daily. Medical Branch norethindro Yes [id number] 1{tbl} Take 1 Univers ne 0.35 mg 1-12 tablet by ity of tablet 00:00: mouth [place] 00 daily. Medical Branch norethindro Yes [id number] 1{tbl} Take 1 Univers ne 0.35 mg 1-12 tablet by ity of tablet 00:00: mouth [place] 00 daily. Medical Branch norethindro Yes [id number] 1{tbl} Take 1 Univers ne 0.35 mg 1-12 tablet by ity of tablet 00:00: mouth [place] 00 daily. [facility] Branch norethindro Yes [id number] 1{tbl} Take 1 Univers ne 0.35 mg 1-12 tablet by ity of tablet 00:00: mouth [place] 00 daily. [facility] Branch norethindro Yes [id number] 1{tbl} Take 1 Univers ne 0.35 mg 1-12 tablet by ity of tablet 00:00: mouth [place] 00 daily. [facility] Branch norethindro Yes [id number] 1{tbl} Take 1 Univers ne 0.35 mg 1-12 tablet by ity of tablet 00:00: mouth [place] 00 daily. Medical Branch norethindro Yes [id number] 1{tbl} Take 1 Univers ne 0.35 mg 1-12 tablet by ity of tablet 00:00: mouth [place] 00 daily. Medical Branch norethindro Yes [id number] 1{tbl} Take 1 Univers ne 0.35 mg 1-12 tablet by ity of tablet 00:00: mouth [place] 00 daily. Medical Branch norethindro Yes [id number] 1{tbl} Take 1 Univers ne 0.35 mg 1-12 tablet by ity of tablet 00:00: mouth [place] 00 daily. Medical Branch norethindro Yes [id number] 1{tbl} Take 1 Univers ne 0.35 mg 1-12 tablet by ity of tablet 00:00: mouth [place] 00 daily. Medical Branch norethindro Yes [id number] 1{tbl} Take 1 Univers ne 0.35 mg 1-12 tablet by ity of tablet 00:00: mouth [place] 00 daily. Medical Branch norethindro Yes [id number] 1{tbl} Take 1 Univers ne 0.35 mg 1-12 tablet by ity of tablet 00:00: mouth [place] 00 daily. Medical Branch norethindro Yes [id number] 1{tbl} Take 1 Univers ne 0.35 mg 1-12 tablet by ity of tablet 00:00: mouth [place] 00 daily. Medical Branch norethindro Yes [id number] 1{tbl} Take 1 Univers ne 0.35 mg 1-12 tablet by ity of tablet 00:00: mouth [place] 00 daily. Medical Branch norethindro Yes [id number] 1{tbl} Take 1 Univers ne 0.35 mg 1-12 tablet by ity of tablet 00:00: mouth [place] 00 daily. Medical Branch norethindro Yes [id number] 1{tbl} Take 1 Univers ne 0.35 mg 1-12 tablet by ity of tablet 00:00: mouth [place] 00 daily. Medical Branch norethindro Yes [id number] 1{tbl} Take 1 Univers ne 0.35 mg 1-12 tablet by ity of tablet 00:00: mouth [place] 00 daily. Medical Branch norethindro Yes [id number] 1{tbl} Take 1 Univers ne 0.35 mg 1-12 tablet by ity of tablet 00:00: mouth [place] 00 daily. Medical Branch norethindro Yes [id number] 1{tbl} Take 1 Univers ne 0.35 mg 1-12 tablet by ity of tablet 00:00: mouth [place] 00 daily. Medical Branch norethindro Yes [id number] 1{tbl} Take 1 Univers ne 0.35 mg 1-12 tablet by ity of tablet 00:00: mouth [place] 00 daily. Medical Branch norethindro Yes [id number] 1{tbl} Take 1 Univers ne 0.35 mg 1-12 tablet by ity of tablet 00:00: mouth [place] 00 daily. Medical Branch norethindro Yes [id number] 1{tbl} Take 1 Univers ne 0.35 mg 1-12 tablet by ity of tablet 00:00: mouth [place] 00 daily. Medical Branch norethindro Yes [id number] 1{tbl} Take 1 Univers ne 0.35 mg 1-12 tablet by ity of tablet 00:00: mouth [place] 00 daily. Medical Branch norethindro Yes [id number] 1{tbl} Take 1 Univers ne 0.35 mg 1-12 tablet by ity of tablet 00:00: mouth [place] 00 daily. Medical Branch Miscellaneo 2020-0 Yes [id number] Use as [facility] 4-20 directed ity o f Supply 00:00: [place] (BLOOD 00 Medical PRESSURE Branch CUFF) [facility] Miscellaneo 2020-0 Yes [id number] Use as [facility] 4-20 directed ity o f Supply 00:00: [place] (BLOOD 00 Medical PRESSURE Branch CUFF) [facility] Miscellaneo 2020-0 Yes [id number] Use as [facility] 4-20 directed ity o f Supply 00:00: [place] (BLOOD 00 Medical PRESSURE Branch CUFF) [facility] Miscellaneo 2020-0 Yes [id number] Use as [facility] 4-20 directed ity o f Supply 00:00: [place] (BLOOD 00 Medical PRESSURE Branch CUFF) [facility] Miscellaneo 2020-0 2020- No [id number] Use as [facility] 08-03 directed ity of Supply 00:00: 00:00 [place] (BLOOD 00 :00 Medical PRESSURE Branch CUFF) [facility] Miscellaneo 2019-0 2020- No [id number] Use as [facility] 08-03 directed ity of Supply 00:00: 00:00 [place] (BLOOD 00 :00 Medical PRESSURE Branch CUFF) [facility] 2020-0 Yes Univers 123/iron/fo 3-31 ity of lic/omeg3s 00:00: [place] (ONE-A-DAY [facility] [place] 1 ORAL) 2020-0 Yes Univers 123/iron/fo 3-31 ity of lic/omeg3s 00:00: [place] (-A-DAY [facility] [place] 1 ORAL) 2020-0 Yes Univers 123/iron/fo 3-31 ity of lic/omeg3s 00:00: [place] (ONE-A-DAY [facility] [place] 1 ORAL) 2020-0 Yes Univers 123/iron/fo 3-31 ity of lic/omeg3s 00:00: [place] (-A-DAY [facility] [place] 1 ORAL) 2020-0 Yes Univers 123/iron/fo 3-31 ity of lic/omeg3s 00:00: [place] (-A-DAY [facility] [place] 1 ORAL) 2020-0 Yes Univers 123/iron/fo 3-31 ity of lic/omeg3s 00:00: [place] (ONE-A-DAY [facility] [place] 1 ORAL) 2020-0 Yes Univers 123/iron/fo 3-31 ity of lic/omeg3s 00:00: [place] (-A-DAY [facility] [place] 1 ORAL) 2020-0 Yes Univers 123/iron/fo 3-31 ity of lic/omeg3s 00:00: [place] (ONE-A-DAY [facility] [place] 1 ORAL) 2020-0 Yes Univers 123/iron/fo 3-31 ity of lic/omeg3s 00:00: [place] (ONE-A-DAY [facility] [place] 1 ORAL) 2020-0 Yes Univers 123/iron/fo 3-31 ity of lic/omeg3s 00:00: [place] (-A- [facility] [place] 1 ORAL) 2020-0 Yes Univers 123/iron/fo 3-31 ity of lic/omeg3s 00:00: [place] (-A- [facility] [place] 1 ORAL) 2020-0 Yes Univers 123/iron/fo 3-31 ity of lic/omeg3s 00:00: [place] (-A- [facility] WOMENS [place] 1 ORAL) 2020-0 Yes Univers 123/iron/fo 3-31 ity of lic/omeg3s 00:00: [place] (-A- [facility] [place] 1 ORAL) 2020-0 Yes Univers 123/iron/fo 3-31 ity of lic/omeg3s 00:00: [place] (-A- [facility] [place] 1 ORAL) 2020-0 Yes Univers 123/iron/fo 3-31 ity of lic/omeg3s 00:00: [place] [facility] [place] [facility] Yes Univers 123/iron/fo 3-31 ity of lic/omeg3s 00:00: [place] (-A-DAY [facility] WOMEN'S [place] 1 ORAL) 2020-0 Yes Univers 123/iron/fo 3-31 ity of lic/omeg3s 00:00: [place] (-A- [facility] [place] 1 ORAL) 2020-0 Yes Univers 123/iron/fo 3-31 ity of lic/omeg3s 00:00: [place] (-A- [facility] [place] 1 ORAL) 2020-0 Yes Univers 123/iron/fo 3-31 ity of lic/omeg3s 00:00: [place] (-A- [facility] WOMEN'S [place] 1 ORAL) 2020-0 Yes Univers 123/iron/fo 3-31 ity of lic/omeg3s 00:00: [place] (-A- [facility] [place] 1 ORAL) 2020-0 Yes Univers 123/iron/fo 3-31 ity of lic/omeg3s 00:00: [place] (ONE-A-DAY 00 Medical WOMEN'S Branch 1 ORAL) 2020-0 Yes Univers 123/iron/fo 3-31 ity of lic/omeg3s 00:00: [place] (ONE-A-DAY 00 Medical WOMEN'S Branch 1 ORAL) 2020-0 Yes Univers 123/iron/fo 3-31 ity of lic/omeg3s 00:00: [place] (ONE-A-DAY Medical WOMEN'S Branch 1 ORAL) 2020-0 Yes Univers 123/iron/fo 3-31 ity of lic/omeg3s 00:00: [place] (ONE-A-DAY Medical WOM[facility] [place] 1 ORAL) 2020-0 Yes Univers 123/iron/fo 3-31 ity of lic/omeg3s 00:00: [place] (ONE-A-DAY Medical WOM[facility] [place] 1 ORAL) 2020-0 Yes Univers 123/iron/fo 3-31 ity of lic/omeg3s 00:00: [place] (ONE-A-DAY Medical [facility]OM[facility] [place] 1 ORAL) 2020-0 Yes Univers 123/iron/fo 3-31 ity of lic/omeg3s 00:00: [place] (ONE-A-DAY Medical [facility] [place] 1 ORAL) 2020-0 Yes Univers 123/iron/fo 3-31 ity of lic/omeg3s 00:00: [place] (ONE-A-DAY Medical WOM[facility] [place] 1 ORAL) PNV 2020-0 Yes Take by Univers no.153/FA/o 3-24 mouth. ity of m3/dha/epa/ 13:23: [place] fish 40 Medical ( Branch GUMMIES ORAL) PNV 2020-0 Yes Take by Univers no.153/FA/o 3-24 mouth. ity of m3/dha/epa/ 13:23: [place] fish 40 Medical ( Branch GUMMIES ORAL) PNV 2020-0 Yes Take by Univers no.153/FA/o 3-24 mouth. ity of m3/dha/epa/ 13:23: [place] fish 40 Medical ( Branch GUMMIES ORAL) PNV 2020-0 Yes Take by Univers no.153/FA/o 3-24 mouth. ity of m3/dha/epa/ 13:23: [place] fish 40 Medical ( Branch GUMMIES ORAL) PNV 2020-0 Yes Take by Univers no.153/FA/o 3-24 mouth. ity of m3/dha/epa/ 13:23: [place] fish 40 Medical ( Branch GUMMIES ORAL) PNV 2020-0 Yes Take by Univers no.153/FA/o 3-24 mouth. ity of m3/dha/epa/ 13:23: [place] fish 40 Medical ( Branch GUMMIES ORAL) PNV 2020-0 Yes Take by Univers no.153/FA/o 3-24 mouth. ity of m3/dha/epa/ 13:23: [place] fish 40 Medical ( Branch GUMMIES ORAL) PNV 2020-0 Yes Take by Univers no.153/FA/o 3-24 mouth. ity of m3/dha/epa/ 13:23: [place] fish 40 Medical ( Branch GUMMIES ORAL) PNV 2020-0 Yes Take by Univers no.153/FA/o 3-24 mouth. ity of m3/dha/epa/ 13:23: [place] fish 40 Medical ( Branch GUMMIES ORAL) PNV 2020-0 Yes Take by Univers no.153/FA/o 3-10 mouth. ity of m3/dha/epa/ 12:58: [place] fish 59 Medical ( Branch GUMMIES ORAL) PNV 2020-0 Yes Take by Univers no.153/FA/o 3-10 mouth. ity of m3/dha/epa/ 12:58: [place] fish 59 Medical ( Branch GUMMIES ORAL) PNV 2020-0 Yes Take by Univers no.153/FA/o 3-10 mouth. ity of m3/dha/epa/ 12:58: [place] fish 59 Medical ( Branch GUMMIES ORAL) PNV 2020-0 Yes Take by Univers no.153/FA/o 3-02 mouth. ity of m3/dha/epa/ 05:14: [place] fish 55 Medical ( Branch GUMMIES ORAL) PNV 2020-0 Yes Take by Univers no.153/FA/o 2-11 mouth. ity of m3/dha/epa/ 15:39: [place] fish 17 Medical ( Branch GUMMIES ORAL) PNV 2020-0 Yes Take by Univers no.153/FA/o 2-11 mouth. ity of m3/dha/epa/ 15:39: [place] fish 17 Medical ( Branch GUMMIES ORAL) PNV 2019-0 Yes Take by Univers no.153/FA/o 1-14 mouth. ity of m3/dha/epa/ 14:48: [place] fish 36 Medical ( Branch GUMMIES ORAL) PNV 2019-0 Yes Take by Univers no.153/FA/o 1-14 mouth. ity of m3/dha/epa/ 14:48: [place] fish 36 Medical ( Branch GUMMIES ORAL) Nitrofurant 2018-04 2020- No [id number] 100mg Take 1 Univers oin&Nit. 05-10 capsule by ity of Macrocryst 00:00: 00:00 mouth 2 Magnus as (MACROBID) 00 :00 (two) Medical 100 mg times Branch capsule daily. ibuprofen 2018- No 800mg Univer s (IBU) 11-05 ity of tablet 800 21:30: 09:29 [place] mg 00 :00 Medical Branch ibuprofen 2018- No 800mg Univer s (IBU) 11-05 ity of tablet 800 21:30: 09:29 [place] mg 00 :00 [facility] Immunizations Ordered Filled Immunization Date Status Comments [facility] e Immunization Name Name TDAP (ADACEL) 2019-07-18 Completed University of VACCINE 00:00:00 [facility] [place] [facility] TDAP (ADACEL) 2019-07-18 Completed University of VACCINE 00:00:00 [facility] [place] [facility] TDAP (ADACEL) 2019-07-18 Completed University of VACCINE 00:00:00 [facility] Branch TDAP (ADACEL) 2019-07-18 Completed University of VACCINE 00:00:00 [facility] TDAP (ADACEL) 2019-07-18 Completed University of VACCINE 00:00:00 [facility] TDAP (ADACEL) 2019-07-18 Completed University of VACCINE 00:00:00 [facility] TDAP (ADACEL) 2019-07-18 Completed University of VACCINE 00:00:00 [facility] TDAP (ADACEL) 2019-07-18 Completed University of VACCINE 00:00:00 [facility] TDAP (ADACEL) 2019-07-18 Completed University of VACCINE 00:00:00 [facility] TDAP (ADACEL) 2019-07-18 Completed University of VACCINE 00:00:00 [place] [facility] TDAP (ADACEL) 2019-07-18 Completed University of VACCINE 00:00:00 [place] [facility] TDAP (ADACEL) 2019-07-18 Completed University of VACCINE 00:00:00 [place] [facility] TDAP (ADACEL) 2019-07-18 Completed University of VACCINE 00:00:00 [place] [facility] TDAP (ADACEL) 2019-07-18 Completed University of VACCINE 00:00:00 [place] [facility] TDAP (ADACEL) 2019-07-18 Completed University of VACCINE 00:00:00 [place] [facility] TDAP (ADACEL) 2019-07-18 Completed University of VACCINE 00:00:00 [place] [facility] TDAP (ADACEL) 2019-07-18 Completed University of VACCINE 00:00:00 [place] [facility] TDAP (ADACEL) 2019-07-18 Completed University of VACCINE 00:00:00 [place] [facility] TDAP (ADACEL) 2019-07-18 Completed University of VACCINE 00:00:00 [facility] TDAP (ADACEL) 2019-07-18 Completed University of VACCINE 00:00:00 [facility] TDAP (ADACEL) 2019-07-18 Completed University of VACCINE 00:00:00 [facility] TDAP (ADACEL) 2019-07-18 Completed University of VACCINE 00:00:00 [facility] TDAP (ADACEL) 2019-07-18 Completed University of VACCINE 00:00:00 [place] [facility] TDAP (ADACEL) 2019-07-18 Completed University of VACCINE 00:00:00 [facility] TDAP (ADACEL) 2019-07-18 Completed University of VACCINE 00:00:00 [place] [facility] TDAP (ADACEL) 2019-07-18 Completed University of VACCINE 00:00:00 [place] [facility] TDAP (ADACEL) 2019-07-18 Completed University of VACCINE 00:00:00 [place] [facility] TDAP (ADACEL) 2019-07-18 Completed University of VACCINE 00:00:00 [place] [facility] TDAP (ADACEL) 2019-07-18 Completed University of VACCINE 00:00:00 [place] [facility] TDAP (ADACEL) 2019-07-18 Completed University of VACCINE 00:00:00 [place] [facility] TDAP (ADACEL) 2019-07-18 Completed University of VACCINE 00:00:00 [place] [facility] TDAP (ADACEL) 2019-07-18 Completed University of VACCINE 00:00:00 [place] [facility] TDAP (ADACEL) 2019-07-18 Completed University of VACCINE 00:00:00 [place] [facility] TDAP (ADACEL) 2019-07-18 Completed University of VACCINE 00:00:00 [place] [facility] TDAP (ADACEL) 2019-07-18 Completed University of VACCINE 00:00:00 [facility] TDAP (ADACEL) 2019-07-18 Completed University of VACCINE 00:00:00 [facility] Tdap 2009-12-11 Completed University of 00:00:00 [place] [facility] Tdap 2009-12-11 Completed University of 00:00:00 [place] [facility] Tdap 2009-12-11 Completed University of 00:00:00 [place] [facility] Tdap 2009-12-11 Completed University of 00:00:00 [place] [facility] Tdap 2009-12-11 Completed University of 00:00:00 [facility] Tdap 2009-12-11 Completed University of 00:00:00 [facility] Tdap 2009-12-11 Completed University of 00:00:00 [facility] Tdap 2009-12-11 Completed University of 00:00:00 [facility] Tdap 2009-12-11 Completed University of 00:00:00 [facility] Tdap 2009-12-11 Completed University of 00:00:00 [facility] Tdap 2009-12-11 Completed University of 00:00:00 [facility] Tdap 2009-12-11 Completed University of 00:00:00 [facility] Tdap 2009-12-11 Completed University of 00:00:00 [facility] Tdap 2009-12-11 Completed University of 00:00:00 [place] [facility] TDAP 2009-12-11 Completed University of 00:00:00 [place] [facility] TDAP 2009-12-11 Completed University of 00:00:00 [facility] TDAP 2009-12-11 Completed University of 00:00:00 [place] [facility] TDAP 2009-12-11 Completed University of 00:00:00 [place] [facility] TDAP 2009-12-11 Completed University of 00:00:00 [place] [facility] TDAP 2009-12-11 Completed University of 00:00:00 [facility] TDAP 2009-12-11 Completed University of 00:00:00 [facility] TDAP 2009-12-11 Completed University of 00:00:00 [facility] TDAP 2009-12-11 Completed University of 00:00:00 [place] [facility] TDAP 2009-12-11 Completed University of 00:00:00 [place] [facility] TDAP 2009-12-11 Completed University of 00:00:00 [place] [facility] TDAP 2009-12-11 Completed University of 00:00:00 [place] [facility] TDAP 2009-12-11 Completed University of 00:00:00 [facility] TDAP 2009-12-11 Completed University of 00:00:00 [facility] TDAP 2009-12-11 Completed University of 00:00:00 [facility] TDAP 2009-12-11 Completed University of 00:00:00 [facility] TDAP 2009-12-11 Completed University of 00:00:00 [facility] TDAP 2009-12-11 Completed University of 00:00:00 [facility] TDAP 2009-12-11 Completed University of 00:00:00 [facility] TDAP 2009-12-11 Completed University of 00:00:00 [facility] TDAP 2009-12-11 Completed University of 00:00:00 [facility] TDAP 2009-12-11 Completed University of 00:00:00 [facility] TDAP 2009-12-11 Completed University of 00:00:00 [facility] TDAP 2009-12-11 Completed University of 00:00:00 [facility] TDAP 2009-12-11 Completed University of 00:00:00 [facility] TDAP 2009-12-11 Completed University of 00:00:00 [facility] TDAP 2009-12-11 Completed University of 00:00:00 [facility] TDAP 2009-12-11 Completed University of 00:00:00 [facility] TDAP 2009-12-11 Completed University of 00:00:00 [facility] TDAP 2009-12-11 Completed University of 00:00:00 [facility] TDAP 2009-12-11 Completed University of 00:00:00 [facility] Tdap 2009-12-11 Completed University of 00:00:00 [facility] Tdap 2009-12-11 Completed University of 00:00:00 [facility] [place] [facility] Tdap 2009-12-11 Completed University of 00:00:00 [facility] [place] [facility] Vital Signs Vital Name Observation Time Observation Value Comments Source Systolic blood 2020-07-30 18:01:00 124 mm[Hg] Univer sity of pressure [place] [facility] Diastolic blood 2020-07-30 18:01:00 75 mm[Hg] Unive rsity of pressure [place] [facility] Heart rate 2020-07-30 18:01:00 75 /min Universi ty of [place] [facility] Respiratory rate 2020-07-30 18:01:00 17 /min Univ ersity of [place] [facility] Oxygen saturation in 2020-07-30 18:01:00 100 /min University of Arterial blood by [facility] Pulse oximetry Branch Body temperature 2020-07-30 15:50:00 37.5 Ibrgit Univ ersity of [place] [facility] Body height 2020-07-30 15:50:00 162.6 cm Universi ty of [place] [facility] Body weight 2020-07-30 15:50:00 79.379 kg Universi ty of [place] [facility] BMI 2020-07-30 15:50:00 30.04 kg/m2 Universi ty of [place] [facility] Systolic blood 2020-07-26 13:57:00 124 mm[Hg] Univer sity of pressure [place] [facility] Diastolic blood 2020-07-26 13:57:00 72 mm[Hg] Unive rsity of pressure [place] [facility] Heart rate 2020-07-26 13:57:00 75 /min Universi ty of [place] [facility] Body temperature 2020-07-26 13:57:00 36.78 Birgit Univ ersity of [place] [facility] Respiratory rate 2020-07-26 13:57:00 16 /min Univ ersity of [place] [facility] Body height 2020-07-26 13:57:00 162.6 cm Universi ty of [place] [facility] Body weight 2020-07-26 13:57:00 80.423 kg Universi ty of [place] [facility] BMI 2020-07-26 13:57:00 30.43 kg/m2 Universi ty of [place] [facility] Systolic blood 2020-07-21 18:16:00 136 mm[Hg] Univer sity of pressure [place] [facility] Diastolic blood 2020-07-21 18:16:00 75 mm[Hg] Unive rsity of pressure [place] [facility] Heart rate 2020-07-21 18:16:00 86 /min Universi ty of [place] [facility] Body temperature 2020-07-21 18:16:00 36.33 Birgit Univ ersity of [place] [facility] Respiratory rate 2020-07-21 18:16:00 16 /min Univ ersity of [place] [facility] Body height 2020-07-21 18:16:00 162.6 cm Universi ty of [place] [facility] Body weight 2020-07-21 18:16:00 81.279 kg Universi ty of [place] [facility] BMI 2020-07-21 18:16:00 30.76 kg/m2 Universi ty of [facility] Systolic blood 2020-06-25 15:00:00 129 mm[Hg] Univer sity of pressure [place] [facility] Diastolic blood 2020-06-25 15:00:00 74 mm[Hg] Unive rsity of pressure [place] [facility] Heart rate 2020-06-25 15:00:00 71 /min Universi ty of [facility] Body temperature 2020-06-25 15:00:00 36.83 Birgit Univ ersity of [place] [facility] Respiratory rate 2020-06-25 15:00:00 18 /min Univ ersity of [facility] Body height 2020-06-25 15:00:00 162.6 cm Universi ty of [place] [facility] Body weight 2020-06-25 15:00:00 80.74 kg Universi ty of [place] [facility] BMI 2020-06-25 15:00:00 30.55 kg/m2 Universi ty of [facility] Oxygen saturation in 2020-06-25 15:00:00 98 /min University Arterial blood by [facility] Pulse oximetry Branch Systolic blood 2020-04-27 16:59:00 131 mm[Hg] Univer sity of pressure [facility] Diastolic blood 2020-04-27 16:59:00 86 mm[Hg] Unive rsity of pressure [place] [facility] Heart rate 2020-04-27 16:59:00 98 /min Universi ty of [facility] Body temperature 2020-04-27 16:59:00 36.28 Birgit Univ ersity of [facility] Respiratory rate 2020-04-27 16:59:00 16 /min Univ ersity of [place] [facility] Body height 2020-04-27 16:59:00 162.6 cm Universi ty of [place] [facility] Body weight 2020-04-27 16:59:00 82.696 kg Universi ty of [place] [facility] BMI 2020-04-27 16:59:00 31.29 kg/m2 Universi ty of [place] [facility] Systolic blood 2020-02-21 19:32:00 114 mm[Hg] Univer sity of pressure [place] [facility] Diastolic blood 2020-02-21 19:32:00 63 mm[Hg] Unive rsity of pressure [place] [facility] Heart rate 2020-02-21 19:32:00 94 /min Universi ty of [place] [facility] Body temperature 2020-02-21 19:32:00 36.83 Birgit Univ ersity of [place] [facility] Respiratory rate 2020-02-21 19:32:00 18 /min Univ ersity of [place] [facility] Body height 2020-02-21 19:32:00 162.6 cm Universi ty of [place] [facility] Body weight 2020-02-21 19:32:00 81.92 kg Universi ty of [place] [facility] BMI 2020-02-21 19:32:00 31.00 kg/m2 Universi ty of [place] [facility] Oxygen saturation in 2020-02-21 19:32:00 98 /min University of Arterial blood by [facility] Pulse oximetry Branch Systolic blood 2019-10-23 21:11:00 169 mm[Hg] Univer sity of pressure [place] [facility] Diastolic blood 2019-10-23 21:11:00 145 mm[Hg] Unive rsity of pressure [place] [facility] Heart rate 2019-10-23 21:11:00 160 /min Universi ty of [place] [facility] Body temperature 2019-10-23 21:11:00 36.83 Birgit Univ ersity of [place] [facility] Respiratory rate 2019-10-23 21:11:00 32 /min Univ ersity of [place] [facility] Body height 2019-10-23 21:11:00 162.6 cm Universi ty of [place] [facility] Body weight 2019-10-23 21:11:00 77.565 kg Universi ty of [place] [facility] BMI 2019-10-23 21:11:00 29.35 kg/m2 Universi ty of [place] [facility] Oxygen saturation in 2019-10-23 21:11:00 98 /min University of Arterial blood by [place] [employer] [facility] Pulse oximetry Branch Systolic blood 2019-10-23 21:11:00 169 mm[Hg] Univer sity of pressure [place] [facility] Diastolic blood 2019-10-23 21:11:00 145 mm[Hg] Unive rsity of pressure [place] [facility] Heart rate 2019-10-23 21:11:00 160 /min Universi ty of [place] [facility] Body temperature 2019-10-23 21:11:00 36.83 Birgit Univ ersity of [place] [facility] Respiratory rate 2019-10-23 21:11:00 32 /min Univ ersity of [place] [facility] Body height 2019-10-23 21:11:00 162.6 cm Universi ty of [place] [facility] [place] Body weight 2019-10-23 21:11:00 77.565 kg Universi ty of [place] [facility] BMI 2019-10-23 21:11:00 29.35 kg/m2 Universi ty of [facility] Oxygen saturation in 2019-10-23 21:11:00 98 /min University of Arterial blood by [facility] Pulse oximetry Branch Systolic blood 2019-07-18 19:26:00 133 mm[Hg] Univer sity of pressure [place] [facility] [place] Diastolic blood 2019-07-18 19:26:00 76 mm[Hg] Unive rsity of pressure [place] [facility] Heart rate 2019-07-18 19:26:00 87 /min Universi ty of [place] [facility] Body temperature 2019-07-18 19:26:00 36.61 Birgit Univ ersity of [facility] Respiratory rate 2019-07-18 19:26:00 16 /min Univ ersity of [facility] Body height 2019-07-18 19:26:00 162.6 cm Universi ty of [place] [facility] Body weight 2019-07-18 19:26:00 76.856 kg Universi ty of [place] [facility] BMI 2019-07-18 19:26:00 29.08 kg/m2 Universi ty of [place] [facility] Systolic blood 2019-07-18 19:26:00 133 mm[Hg] Univer sity of pressure [place] [facility] Diastolic blood 2019-07-18 19:26:00 76 mm[Hg] Unive rsity of pressure [place] [facility] Heart rate 2019-07-18 19:26:00 87 /min Universi ty of [place] [facility] Body temperature 2019-07-18 19:26:00 36.61 Birgit Univ ersity of [facility] Respiratory rate 2019-07-18 19:26:00 16 /min Univ ersity of [place] [facility] Body height 2019-07-18 19:26:00 162.6 cm Universi ty of [place] [facility] Body weight 2019-07-18 19:26:00 76.856 kg Universi ty of [place] [facility] BMI 2019-07-18 19:26:00 29.08 kg/m2 Universi ty of [facility] [place] [facility] Systolic blood 2019-06-24 13:14:00 135 mm[Hg] Univer sity of pressure [facility] Diastolic blood 2019-06-24 13:14:00 70 mm[Hg] Unive rsity of pressure [facility] [place] [facility] Heart rate 2019-06-24 13:14:00 84 /min Universi ty of [facility] [place] [facility] Body temperature 2019-06-24 13:14:00 36.5 [place] Univ ersity of [facility] [place] [facility] Respiratory rate 2019-06-24 13:14:00 16 /min Univ ersity of [facility] [place] [facility] Body height 2019-06-24 13:14:00 162.6 cm Universi ty of [facility] [place] [facility] Body weight 2019-06-24 13:14:00 75.524 kg Universi ty of [facility] [place] [facility] BMI 2019-06-24 13:14:00 28.58 kg/m2 Universi ty of [facility] [place] [facility] Systolic blood 2019-06-16 04:18:00 125 mm[Hg] Univer sity of pressure [facility] [place] [facility] Diastolic blood 2019-06-16 04:18:00 66 mm[Hg] Unive rsity of pressure [facility] [place] [facility] Heart rate 2019-06-16 04:18:00 74 /min Universi ty of [facility] [place] [facility] Body temperature 2019-06-16 04:18:00 37 Birgit Univ ersity of [facility] [place] [facility] Respiratory rate 2019-06-16 04:18:00 17 /min Univ ersity of [facility] [place] [facility] Body height 2019-06-16 04:18:00 162.6 cm Universi ty of [facility] [place] [facility] Body weight 2019-06-16 04:18:00 73.12 kg Universi ty of [facility] [place] [facility] BMI 2019-06-16 04:18:00 27.67 kg/m2 Universi ty of [facility] [place] [facility] Oxygen saturation in 2019-06-16 04:18:00 100 /min University Arterial blood by [facility] Pulse oximetry Branch Systolic blood 2019-05-27 15:42:00 115 mm[Hg] Univer sity of pressure [facility] [place] [facility] Diastolic blood 2019-05-27 15:42:00 65 mm[Hg] Unive rsity of pressure [place] [facility] Heart rate 2019-05-27 15:42:00 80 /min Universi ty of [place] [facility] Body temperature 2019-05-27 15:42:00 36.78 Birgit Univ ersity of [place] [facility] Respiratory rate 2019-05-27 15:42:00 16 /min Univ ersity of [place] [facility] Body height 2019-05-27 15:42:00 162.6 cm Universi ty of [place] [facility] Body weight 2019-05-27 15:42:00 71.895 kg Universi ty of [place] [facility] BMI 2019-05-27 15:42:00 27.21 kg/m2 Universi ty of [place] [facility] Diastolic blood 2019-04-29 14:44:00 75 mm[Hg] Unive rsity of pressure [place] [facility] Heart rate 2019-04-29 14:44:00 93 /min Universi ty of [place] [facility] Body temperature 2019-04-29 14:44:00 36.83 Birgit Univ ersity of [place] [facility] Respiratory rate 2019-04-29 14:44:00 16 /min Univ ersity of [place] [facility] Body height 2019-04-29 14:44:00 162.6 cm Universi ty of [place] [facility] Body weight 2019-04-29 14:44:00 68.295 kg Universi ty of [place] [facility] BMI 2019-04-29 14:44:00 25.84 kg/m2 Universi ty of [place] [facility] Systolic blood 2019-04-29 14:44:00 127 mm[Hg] Univer sity of pressure [place] [facility] Systolic blood 2018-11-05 19:14:00 122 mm[Hg] Univer sity of pressure [place] [facility] Diastolic blood 2018-11-05 19:14:00 80 mm[Hg] Unive rsity of pressure [place] [facility] Heart rate 2018-11-05 19:14:00 110 /min Universi ty of [place] [facility] Body temperature 2018-11-05 19:14:00 36.83 Birgit Univ ersity of [place] [facility] Respiratory rate 2018-11-05 19:14:00 18 /min Univ ersity of [place] [facility] Body height 2018-11-05 19:14:00 162.6 cm Universi ty of [place] [facility] Body weight 2018-11-05 19:14:00 74.191 kg [facility] BMI 2018-11-05 19:14:00 28.08 kg/m2 [facility] Procedures Procedure Date / Time Performing Clinician Source Performed US FIRST 2020-07-30 18:26:46 Noemi Shields [facility] TRIMESTER LESS THAN 14 Medical B ranch WEEKS WITH TRANSVAGINAL BASIC METABOLIC PANEL 2020-07-30 17:00:00 Noemi Shields [facility] (NA, K, CL, CO2, [facility] GLUCOSE, BUN, CREATININE, CA) TOTAL BETA HCG ASSAY 2020-07-30 17:00:00 Noemi Shields [facility] CBC WITH DIFF 2020-07-30 17:00:00 Noemi Shields [facility] PROTHROMBIN TIME / INR 2020-07-30 17:00:00 [facility] ACTIVATED PARTIAL 2020-07-30 17:00:00 Noemi Shields [facility] THRFormerly [facility] URINALYSIS 2020-07-30 17:00:00 Noemi Shields [facility] CONSENT/REFUSAL FOR 2020-07-30 15:34:33 Doctor Unassigned, No [facility] POCT TEST 2020-07-21 18:23:00 [facility] POCT URINALYSIS 2020-07-21 18:22:00 Rashmi Rich [facility] REPORT OF 2020-07-21 05:01:00 Doctor Unassigned, No [facility] POCT TEST 2020-04-27 17:28:00 Abdifatah Owens [facility] TDAP (ADACEL) 2019-07-18 19:38:02 Abdifatah Owens [facility] IMMUNIZATION [facility] POCT URINALYSIS W/O 2019-07-18 19:29:00 Abdifatah Owens [facility] SPECIFIC GRAVITY [facility] STERILIZATION CONSENT 2019-07-18 05:01:00 Doctor Unassigned, No [facility] FORM [facility] POCT URINALYSIS W/O 2019-06-24 13:17:00 Abdifatah Owens [facility] ASSIGNMENT OF BENEFITS 2019-06-16 04:11:06 Doctor Unassigned, No [facility] POCT URINALYSIS W/O 2019-05-27 15:46:00 Abdifatah Owens [facility] PO[facility] URINALYSIS W/O 2019-04-29 14:51:00 Abdifatah Owens [facility] Encounters Start End Encounter Admission Attending Care Care Encounter Source Date/Time Date/Time Type Type Clinicians Facility Department ID 2021-02-13 Emergency [facility] [id number] Univers 13:23:12 ity [facility] 2021-02-11 Emergency [facility] [id number] Univers 05:53[facility]10 Outpatient P [facility] [id number] Univers 11:52:30 [facility] 2021-02-10 Outpatient P [facility] [id number] Univers 11:52:25 [facility] 2021-04-14 2021-04-14 Outpatient R [facility] [id number] Univers 18:30:00 18:30:00 [id number] [facility] 2021-04-14 2021-04-14 [facility] [id number] Univers 18:30:00 18:30:00 ZULEIKA [facility] 2020-11-11 2020-11-11 Outpatient [facility] [id number] Univers 12:00:00 12:00:00 [id number] [facility] 2020-08-19 2020-08-19 Outpatient R [facility] [id number] Univers 08:00:00 08:00:00 [id number] [facility] 2020-08-18 2020-08-18 [facility] [id number] Univers 10:45:00 10:45:00 RASHMI [id number] ity o f [facility] 2020-08-18 2020-08-18 Outpatient R HILARIO [facility] [id number] Univers 10:45:00 10:45:00 DERRICKNDJen ity o f [facility] 2020-08-08 2020-08-08 Nurse Phuong DIAZ 1.2.840.114 [id number] Univers 00:00:00 00:00:00 Triage alma delia Dee Mayra GLADYS 350.1.13.10 ity [facility] 4.2.7.2.686 Magnus as [phone] [address] 2020-08-05 2020-08-05 Outpatient R [facility] [id number] Univers 09:00:00 09:00:00 [id number] ity [facility] 2020-08-05 2020-08-05 Outpatient R [facility] [id number] Univers 09:00:00 09:00:00 ity [facility] 2020-08-04 2020-08-04 Kala Owens [facility] 1.2.811.870 [id number] Univers 00:00:00 00:00:00 Abdifatah Negrete TIME STUDY OBSERVER 350.1.13.10 it y of [facility] 4.2.7.2.686 Magnus as MATERNAL [phone] Med ical & CHILD [address] [place] [address] 2020-08-03 2020-08-03 Telephone Hilario [facility] 1.2.857.143 [id number] Univers 00:00:00 00:00:00 Rashmi Rodriguez TIME STUDY OBSERVER 350.1.13.10 ity of [facility] 4.2.7.2.686 Magnus as MATERNAL [phone] [facility] ical & CHILD [address] [place] [address] 2020-08-02 2020-08-02 Continuous [facility], Ang-Rmchp [facility] 1.2.840. 114 [id number] Univers 08:25:10 08:43:40 Visit Rashmi Rich TIME STUDY OBSERVER 350.1.13.10 ity of [facility] 4.2.7.2.686 Magnus as MATERNAL [phone] [facility] ical & CHILD [address] [place] [address] 2020-08-02 2020-08-02 Outpatient R [facility] [id number] Univers 08:30:00 08:30:00 [id number] ity [facility] 2020-08-02 2020-08-02 Outpatient R RICH [facility] [id number] Univers 08:30:00 08:30:00 RASHMI ity o f [facility] 2020-07-30 2020-07-30 Emergency [facility] 1.2.072.722 [id number] Univers 10:53:00 14:32:00 Noemi Geronimo [place] 350.1.13.10 i ty [facility] 4.2.7.2.686 [place] [phone] [facility] [address] [place] 2020-07-30 2020-07-30 [facility]phone [facility] [id number] Univers 00:00:00 00:00:00 Rashmi Rodriguez TIME STUDY OBSERVER 350.1.13.10 ity of [facility] 4.2.7.2.686 Magnus as MATERNAL [phone] Med ical & CHILD 107 [facility] 2020-07-30 2020-07-30 Orders Doctor JOE 1.2.840.114 [id number] Univers 00:00:00 00:00:00 Only Unassigned, GLADYS 350.1.13.10 ity of [place] [facility] 4.2.7.2.686 Magnus as [phone] [facility] [address] [place] 2020-07-29 2020-07-29 Telephone [facility] 1.2.274.519 [id number] Univers 00:00:00 00:00:00 Rashmi Rodriguez TIME STUDY OBSERVER 350.1.13.10 ity of [facility] 4.2.7.2.686 Magnus as MATERNAL [id number] Med ical & CHILD [address] [place] [address] 2020-07-28 2020-07-28 Telephone [facility] 1.2.759.876 [id number] Univers 00:00:00 00:00:00 Rashmi Rodriguez TIME STUDY OBSERVER 350.1.13.10 ity of [facility] 4.2.7.2.686 Magnus as MATERNAL [phone] [facility] ical & CHILD [address] [place] [address] 2020-07-26 2020-07-26 Outpatient [facility] [id number] Univers 09:00:00 09:00:00 [id number] ity of [facility] 2020-07-26 2020-07-26 Outpatient R HILARIO [facility] [id number] Univers 09:00:00 09:00:00 RASHMI ity o f [facility] 2020-07-26 2020-07-26 Nurse Visit, [facility] Nurse [facility] 1.2 .840.114 [id number] Univers 08:42:43 08:57:43 Visit Rashmi Rich TIME STUDY OBSERVER 350.1.13.10 ity of [facility] 4.2.7.2.686 Magnus as MATERNAL [phone] Med ical & CHILD [address] [place] [address] 2020-07-26 2020-07-26 Letter Hilario [facility] 1.2.840.114 [id number] Univers 00:00:00 00:00:00 (Out) Rashmi Rodriguez TIME STUDY OBSERVER 350.1.13.10 ity of [facility] 4.2.7.2.686 Magnus as MATERNAL [phone] Med ical & CHILD [address] [place] [address] 2020-07-22 2020-07-22 [facility] [id number] Univers 08:30:00 08:30:00 ABDIFATAH [id number] ity [facility] 2020-07-22 2020-07-22 Outpatient Jennifer OWENS [facility] [id number] Univers 08:30:00 08:30:00 ABDIFATAH ity [facility] 2020-07-22 2020-07-22 Telephone [facility] 1.2.522.001 [id number] Univers 00:00:00 00:00:00 Rashmi R TIME STUDY OBSERVER 350.1.13.10 ity of [facility] 4.2.7.2.686 Magnus as MATERNAL [phone] [facility] ical & CHILD [address] [place] [address] 2020-07-22 2020-07-22 Telephone [facility] 1.2.840.114 [id number] Univers 00:00:00 00:00:00 Abdifatah Negrete TIME STUDY OBSERVER 350.1.13.10 it y of REGIONAL 4.2.7.2.686 [place] as MATERNAL [phone] [facility] & CHILD [address] [place] [address] 2020-07-22 2020-07-22 Telephone [facility] 1.2.136.078 [id number] Univers 00:00:00 00:00:00 Roshunda R TIME STUDY OBSERVER 350.1.13.10 ity of REGIONAL 4.2.7.2.686 Magnus as MATERNAL [phone] [facility] & CHILD [address] [place] [address] 2020-07-22 2020-07-22 [facility] 1.2.510.565 [id number] Univers 00:00:00 00:00:00 Roshunda R TIME STUDY OBSERVER 350.1.13.10 ity of REGIONAL 4.2.7.2.686 Magnus as MATERNAL [id number] [facility] & CHILD [address] [place] [address] 2020-07-22 2020-07-22 [facility] 1.2.770.563 [id number] Univers 00:00:00 00:00:00 Roshunda R TIME STUDY OBSERVER 350.1.13.10 ity of REGIONAL 4.2.7.2.686 Magnus as MATERNAL [phone] [facility] & CHILD [address] [place] [address] 2020-07-21 2020-07-21 [facility] 1.2.840.114 [id number] Univers 12:47:55 13:51:32 Roshunda R TIME STUDY OBSERVER 350.1.13.10 ity of Visit REGIONAL 4.2.7.2.686 Magnus as MATERNAL [phone] [facility] & CHILD [address] [place] [address] 2020-07-21 2020-07-21 Outpatient R [facility] [id number] Univers 12:30:00 12:30:00 [id number] ity of [facility] 2020-07-21 2020-07-21 Outpatient R [facility] [id number] Univers 12:30:00 12:30:00 ity of [facility] 2020-07-21 2020-07-21 Christine DIAZ 1.2.840.114 [id number] Univers 00:00:00 00:00:00 Only Unassigned, GLADYS 350.1.13.10 ity of [place] [facility] 4.2.7.2.686 Magnus as [phone] [facility] [address] [place] 2020-07-06 2020-07-06 Patient Rex [facility] 1.2.840.114 [id number] Univers 00:00:00 00:00:00 Outreach Frederic PRIMARY 350.1.13.10 i ty of [facility] 4.2.7.2.686 [place] [phone] Me dical [address] [place] 2020-06-25 2020-06-25 Urgent Provider, [facility] 1.2.840.114 [id number] Univers 08:53:08 09:13:08 [facility] 350.1.13.10 ity of [place] 4.2.7.2.686 Magnus as Professio [phone] Vt dical nal [address] [place] [address] [employer] 2020-06-25 2020-06-25 Outpatient R [facility] [id number] Univers 08:40:00 08:40:00 [id number] ity of [facility] 2020-06-25 2020-06-25 Outpatient R [facility] [id number] Univers 08:40:00 08:40:00 ity of [facility] 2020-05-11 2020-05-11 Outpatient R [facility] [id number] Univers 15:15:00 15:15:00 [id number] ity of [facility] 2020-05-11 2020-05-11 Outpatient R [facility] [id number] Univers 15:15:00 15:15:00 ity of [facility] 2020-04-27 2020-04-27 Office [facility] 1.2.794.512 [id number] Univers 10:46:59 11:30:06 Visit Abdifatah Negrete TIME STUDY OBSERVER 350.1.13.10 it y of [facility] 4.2.7.2.686 Magnus as MATERNAL [phone] Med ical & CHILD [address] [place] [address] 2020-04-27 2020-04-27 [facility] [id number] Univers 10:45:00 10:45:00 ABDIFATAH [id number] ity [facility] 2020-04-27 2020-04-27 [facility] [id number] Univers 10:45:00 10:45:00 ABDIFATAH itajy [facility] 2020-04-27 2020-04-27 Telephone [facility] 1.2.840.114 [id number] Univers 00:00:00 00:00:00 Abdifatah Negrete TIME STUDY OBSERVER 350.1.13.10 it y [facility] 4.2.7.2.686 Magnus as MATERNAL [phone] Med ical & CHILD [address] [place] [address] 2020-04-07 2020-04-07 Outpatient R [facility] [id number] Univers 11:00:00 11:00:00 [id number] [facility] 2020-04-06 2020-04-06 Outpatient R [facility] [id number] Univers 13:50:00 13:50:00 [id number] ity [facility] 2020-04-06 2020-04-06 Outpatient [facility] [id number] Univers 13:50:00 13:50:00 EJ [facility] 2020-02-21 2020-02-21 Nurse Nurse, [facility] 1.2 .840.114 [id number] Univers 13:09:47 13:24:47 Visit Gabriel Salda[facility] 350.1.13 .10 [facility] 4.2.7.2.686 [place] as Professio [phone] [address] Office [address] [employer] 2020-02-21 2020-02-21 Outpatient R [facility] [id number] Univers 13:15:00 13:15:00 ity [facility] 2020-02-21 2020-02-21 Outpatient R PIPER [facility] [id number] Univers 13:15:00 13:15:00 GABRIEL GARCIA [facility] 2019-12-25 2019-12-25 Outpatient R [facility] [id number] Univers 19:40:00 19:40:00 ity [facility] 2019-12-25 2019-12-25 Outpatient R LOMELI, [facility] [id number] Univers 19:40:00 19:40:00 MARIO [facility] 2019-11-30 2019-11-30 Nurse Phuong DIAZ 1.2.840.114 [id number] Univers 00:00:00 00:00:00 Triage d, Dee Nunez GLADYS 350.1.13.10 ity of [facility] 4.2.7.2.686 Magnus as [phone] [address] 2019-10-23 2019-10-23 Outpatient R [facility] [id number] Univers 16:40:00 16:40:00 ity [facility] 2019-10-23 2019-10-23 Outpatient R [facility] [id number] Univers 16:40:00 16:40:00 ity [facility] 2019-10-23 2019-10-23 Urgent Provider, [facility] [id number] 16:04:56 16:24:56 Care [facility] 350.1.13.10 Care [place] 4.2.7.2.686 Professio [phone] [place] [address] Office [facility] 2019-10-23 2019-10-23 Urgent Provider, [facility] 1.2.840.114 [id number] Univers 16:04:56 16:24:56 Care Diane, [facility] 350.1.13.10 ity [facility] 4.2.7.2.686 Magnus as Professio [phone] Vt dical [address] Office Building [facility] 2019-08-18 2019-08-18 Outpatient R AKINSIPE, [facility] [id number] Univers 14:45:00 14:45:00 JENIFFER [id number] ity o f [facility] 2019-08-18 2019-08-18 Outpatient R AKINSIPE, [facility] [id number] Univers 14:45:00 14:45:00 JENIFFER ity o f [facility] 2019-08-18 2019-08-18 Outpatient R AKINSIPE, [facility] [id number] Univers 14:00:00 14:00:00 JENIFFER ity o f [facility] 2019-08-04 2019-08-04 Telemedici [facility] 1.2.840.114 [id number] 12:33:29 14:43:25 ne Visit Jeniffer C TIME STUDY OBSERVER 350.1.13.10 REGIONAL 4.2.7.2.686 MATERNAL [id number] & CHILD [address] [place] [address] 2019-08-04 2019-08-04 [facility]ici [facility] 1.2.840.114 [id number] [facility] 12:33:29 14:43:25 ne Visit Jeniffer C TIME STUDY OBSERVER 350.1.13.10 ity of REGIONAL 4.2.7.2.686 Magnus as MATERNAL [phone] [facility] ical & CHILD [address] [place] [address] 2019-08-04 2019-08-04 Outpatient R JERED, [facility] [id number] Univers 14:30:00 14:30:00 JENIFFER [id number] alexa schwartz [facility] 2019-08-04 2019-08-04 Outpatient R JERED, [facility] [id number] Univers 14:30:00 14:30:00 JENIFFER liu o katherine [facility] 2019-08-01 2019-08-[address] [facility] 1.2.840.114 [id number] Univers 00:00:00 00:00:00 Jeniffer C TIME STUDY OBSERVER 350.1.13.10 ity of REGIONAL 4.2.7.2.686 Magnus as MATERNAL [phone] [facility] ical & CHILD [address] [place] [address] 2019-08-01 2019-08-[address] [facility] 1.2.840.114 [id number] 00:00:00 00:00:00 Jeniffer C TIME STUDY OBSERVER 350.1.13.10 REGIONAL 4.2.7.2.686 MATERNAL [id number] & CHILD [address] [place] [address] 2019-07-29 2019-07-[address] [facility] 1.2.840.114 [id number] Univers 00:00:00 00:00:00 Jeniffer C TIME STUDY OBSERVER 350.1.13.10 ity of REGIONAL 4.2.7.2.686 Magnus as MATERNAL [id number] Med ical & CHILD [address] [place] [address] 2019-07-29 2019-07-29 Telephone [facility], [facility] 1.2.840.114 [id number] 00:00:00 00:00:00 Jeniffer C TIME STUDY OBSERVER 350.1.13.10 REGIONAL 4.2.7.2.686 MATERNAL [phone] & CHILD 107 [facility] 2019-07-18 2019-07-18 Routine Akinpe, [facility] 1.2.645.711 [id number] Univers 14:00:22 14:15:22 Jeniffer C TIME STUDY OBSERVER 350.1.13.10 ity of Visit REGIONAL 4.2.7.2.686 Magnus as MATERNAL [phone] [facility] ical & CHILD [address] [place] [address] 2019-07-18 2019-07-18 Routine [facility], [facility] 1.2.387.051 [id number] 14:00:22 14:15:22 Jeniffer C TIME STUDY OBSERVER 350.1.13.10 Visit REGIONAL 4.2.7.2.686 MATERNAL [id number] & CHILD [address] [place] [address] 2019-07-18 2019-07-18 Outpatient R JERED [facility] [id number] Univers 14:15:00 14:15:00 JENIFFER ity o f [facility] 2019-07-18 2019-07-18 Outpatient Jennifer OWENS [facility] [id number] Univers 14:00:00 14:00:00 ABDIFATAH [id number] ity [facility] 2019-07-18 2019-07-18 Outpatient Jennifer OWENS [facility] [id number] Univers 14:00:00 14:00:00 ABDIFATAH liu [facility] 2019-07-18 2019-07-18 Orders Doctor DIAZ 1.2.840.114 [id number] Univers 00:00:00 00:00:00 Only Unassigned, GLADYS 350.1.13.10 ity of [place] [facility] 4.2.7.2.686 Magnus as [phone] [address] 2019-07-18 2019-07-18 Orders Doctor DIAZ 1.2.840.114 [id number] 00:00:00 00:00:00 Only Unassigned, GLADYS 350.1.13.10 [place] [address]686 [id number] 009 2019-07-08 2019-07-09 [facility] 1.2.840.114 [id number] Univers 08:22:02 15:52:14 ne Visit Abdifatah Caden TIME STUDY OBSERVER 350.1.13.10 i ty of [facility] 4.2.7.2.686 Magnus as MATERNAL [id number] Med ical & CHILD [address] [place] [address] 2019-07-08 2019-07-09 Telemedic [facility] 1.2.840.114 [id number] 08:22:02 15:52:14 ne Visit Abdifatah Caden TIME STUDY OBSERVER 350.1.13.10 [facility] 4.2.7.2.686 MATERNAL [id number] & [address] 2019-07-08 2019-07-08 [facility] [id number] Univers 08:15:00 08:15:00 ABDIFATAH [id number] alexa [facility] 2019-07-08 2019-07-08 Outpatient R ROMAN [facility] [id number] Univers 08:15:00 08:15:00 ABDIFATAH liu [facility] 2019-06-24 2019-06-24 Routine [facility] 1.2.444.454 [id number] Univers 07:58:27 08:25:48 Abdifatah Caden TIME STUDY OBSERVER 350.1.13.10 i ty of Visit [facility] 4..7.2.686 Magnus as MATERNAL [phone] [facility] & CHILD [address] [place] [address] 2019-06-24 2019-06-24 Outpatient R ROMAN [facility] [id number] Univers 08:00:00 08:00:00 ABDIFATAH liu [facility] 2019-06-15 2019-06-15 [facility] Natacha Dyer [facility] 1.2.840.114 [id number] Univers 22:12:00 23:10:00 Encounter Mitesh [place] 350.1.13.10 [facility].7.2.686 [facility] [phone] [address] 2019-05-27 2019-05-27 Routine [facility] 1.2.499.098 [id number] Univers 09:31:41 10:01:17 Abdifatah Caden TIME STUDY OBSERVER 350.1.13.10 i ty of Visit [facility] 4.2.7.2.686 Magnus as MATERNAL [phone] [facility] ical & CHILD [address] [place] [address] 2019-05-09 2019-05-09 Telephone [facility] 1.2.840.114 [id number] Univers 00:00:00 00:00:00 Abdifatah Caden TIME STUDY OBSERVER 350.1.13.10 it y of [facility] 4.2.7.2.686 Magnus as MATERNAL [phone] [facility] & CHILD [address] [place] [address] 2019-04-29 2019-04-29 Routine [facility] 1.2.172.537 [id number] Univers 08:40:04 08:55:04 Abdifatah Caden TIME STUDY OBSERVER 350.1.13.10 i ty of Visit REGIONAL 4.2.7.2.686 Magnus as MATERNAL [phone] [facility] ical & CHILD [address] [place] [address] 2018-11-05 2018-11-05 Office Pool, [facility] Resident UNIVERSIT 1.2.8 40.114 [id number] [facility] 14:05:21 15:35:48 Visit Carlo Thompson [facility] 350.1.13.10 ity of [facility] 4.2.7.2.686 [place] [phone] [address] Results Test Description Test Time Test Results Result Source Comments Comments [place] 2020-07-15 Intrauterine Universit y of FIRST TRIMESTER 6 anechoic structure [facility] LESS THAN 14 18:39:40 thought to represent Br anch WEEKS WITH gestational sac TRANSVAGINAL withmean sac diameter consistent with estimated sonographic age of 5 weeks and3 days, compared to 7 weeks and 1 day by provided LMP dates. Datingdiscrepancy is probably related due to LMP date accuracy. pole is not identified presumably secondary to early .Recommend close beta-hCG follow-up. PELVIC ULTRASOUND (TRANSVAGINAL AND LIMITED TRANSABDOMINAL) TECHNIQUE: Transvaginal and limited transabdominal sonography of the pelviswas performed. INDICATION: 7 weeks early vaginal bleeding r/o ectopic . LMP2/ COMPARISON: 03/10/2019 FINDINGS: Uterus measures 9.7 x 5.4 x 7.0 cm and contains what appears to be ananechoic structure thought to represent the gestational sac with mean sacdiameter measuring 0.8 cm consistent with estimated sonographic gestationalage of 5 weeks and 3 days. Yolk sac measures 2 to 3 mm. pole is notvisualized at this time. Single nabothian cyst is seen within the cervix. Ovaries are normal in size and configuration. The right ovary measures 3.9x 2.4 x 2.0 cm and contains a 1.8 cm corpus luteum. There is also suspectedsmall suspected ovarian follicle versus paraovarian cyst measuring 1.0 cm(image 108).The left ovary measures 2.7 x 1.1 x 1.8 cm. Subjectively, there is normal color Doppler signal corresponding to bothovaries. Trace amount of simple free fluid in the cul-de-sac. [facility], Radiant Results Inft User - 07/30/2020 1:40 PM CDTPELVIC ULTRASOUND (TRANSVAGINAL AND LIMITED TRANSABDOMINAL)TECHNI QUE: Transvaginal and limited transabdominal sonography of the pelviswas performed.INDICATION: 7 weeks early vaginal bleeding r/o ectopic . LMP1COMPARISO N: 03/10/2019FINDINGS:Ut erus measures 9.7 x 5.4 x 7.0 cm and contains what appears to be ananechoic structure thought to represent the gestational sac with mean sacdiameter measuring 0.8 cm consistent with estimated sonographic gestationalage of 5 weeks and 3 days. Yolk sac measures 2 to 3 mm. pole is notvisualized at this time. Single nabothian cyst is seen within the cervix. Ovaries are normal in size and configuration. The right ovary measures 3.9x 2.4 x 2.0 cm and contains a 1.8 cm corpus luteum. There is also suspectedsmall suspected ovarian follicle versus paraovarian cyst measuring 1.0 cm(image 108).The left ovary measures 2.7 x 1.1 x 1.8 cm. Subjectively, there is normal color Doppler signal corresponding to bothovaries.Trace amount of simple free fluid in the cul-de-sac.IMPRESSION Intrauterine anechoic structure thought to represent gestational sac withmean sac diameter consistent with estimated sonographic age of 5 weeks and3 days, compared to 7 weeks and 1 day by provided LMP dates. Datingdiscrepancy is probably related due to LMP date accuracy. pole is not identified presumably secondary to early .Recommend close beta-hCG follow-up. TOTAL BHCG (QUANTITATIVE) 2020-07-30 18:32:37 Test Item Value Reference Range Interpretation Comme nts BETA HCG (test code = See_Comment [Auto mated message] The [id number]) system which ge nerated this result transmit urbano reference range : Non- fe male and male patients: <5 mIU/mL. The reference r yg was not used to interpr et this result as jacques l/abnormal. CARLOS (test code = CARLOS) Gestational Age ?Range (mIU/mL) 1-10 ?Weeks ?[id number] Weeks ?67961-49675729-00 Weeks ?8380-36123755-64 Weeks ?6019-105679 Biotin has been reported to cause a negative bias, interpret results relative to patient's use of biotin. [facility] Test Item Value Reference Range Interpretation Comments APPEARANCE (test code = Clear Clear 6123929683) COLOR (test code = Yellow Yellow 1319284729) PH (test code = 4.8-8.0 1482775987) SP GRAVITY (test code = 1.003-1.030 1046295804) GLU U QUAL (test code = Normal Normal 0748729369) BLOOD (test code = 1+ Negative A 4261171958) KETONES (test code = Negative Negative 4018652814) PROTEIN (test code = Negative Negative 2887-8) UROBILIN (test code = Normal Normal 1488406905) BILIRUBIN (test code = Negative Negative 8571632323) NITRITE (test code = Negative Negative 4638180699) LEUK SHARRON (test code = Negative Negative 8845862599) RBC/HPF (test code = See_Comment [Autom ated message] 6284036930) The system Glide generated this result transmitted ref erence range: 0 - 3 HP F. The reference range was not used to int erpret this result as normal/abnormal . WBC/HPF (test code = See_Comment [Autom ated message] 7958404228) The system Glide generated this result transmitted ref erence range: 0 - 5 HP F. The reference range was not used to int erpret this result as normal/abnormal . BACTERIA (test code = Few Negative A 9916510026) MUCOUS (test code = Slight Negative LPF A 1668777916) SQ EPITH (test code = HPF 5825879282) Lab Interpretation (test Abnormal code = 84291-0) [facility] METABOLIC PANEL (NA, K, CL, CO2, GLUCOSE, BUN, CREATININE, CA)2020-07-30 17:36:08 Test Item Value Reference Range Interpretation Comments NA (test code = 138 mmol/L 135-145 6058140239) K (test code = 3.9 mmol/L 3.5-5.0 5061561255) CL (test code = 105 mmol/L 98-108 6327629345) CO2 TOTAL (test code 24 mmol/L 23-31 = 8468357051) AGAP (test code = 2-16 4901074470) BUN (test code = 12 mg/dL 7-23 0939003380) GLUCOSE (test code = 89 mg/dL 70-110 6480962389) CREATININE (test code 0.67 mg/dL 0.50-1.04 = 1630287408) CALCIUM (test code = 9.5 mg/dL 8.6-10.6 5246865917) eGFR (test code = mL/min/1.73m2 5994440096) CARLOS (test code = CARLOS) Association of Glomerular Filtration Rate (GFR) and Staging of Kidney Disease* + + +- +| GFR (mL/min/1.73 m2) ?| With Kidney Damage ?| ?Without Kidney Damage+ ------+ ----+ ------+| ?>90 ?| ?Stage one ?| ? Normal ?+ -+ + -+| ?60-89 ?| ?Stage two ?| ? Decreased GFR ? + + +- +| ?30-59 ?| ?Stage three ?| ? Stage three ? + + +- +| ?15-29 ?| ?Stage four ? | ? Stage four ?+ -+ + -+| ?<15 (or dialysis) ? ?| ?Stage five ? | ? Stage five ?+ -+ + -+ *Each stage assumes the associated GFR level has been in effect for at least three months. ?Stages 1 to 5, with or without kidney disease, indicate chronic kidney disease. Notes: Determination of stages one and two (with eGFR >59mL/min/1.73 m2) requires estimation of kidney damage for at least three months as defined by structural or functional abnormalities of the kidney, manifested by either:Pathological abnormalities or Markers of kidney damage (including abnormalities in the composition of the blood or urine or abnormalities in imaging tests). [facility] [id number] 17:32:46 Test Item Value Reference Range Interpretation Comments APTT Patient (test See_Comment [Automat ed code = 3173-2) message] The system which generated this result transmitted reference range : 23 - 38 Seconds . The reference range was not used to interpr et this result as normal/abnormal . CARLOS (test code = CARLOS) The [facility] patient population mean normal value for aPTT is 30 seconds. Lab Interpretation Normal (test code = 08740-3) [facility] / [id number] 17:30:28 Test Item Value Reference Range Interpretation Comments PROTIME PATIENT (test See_Comment [Auto mated message] code = 5964-2) The system wh ich generated this result transmitted ref erence range: 12.0 - 1 4.7 Seconds. The re ference range was not u sed to interpret this result as normal/abnor mal. INR (test code = 6301-6) Nor mal INR <1.1; Warfarin Therap eutic range 2.0 to 3. 0 or 2.5 to 3.5, dep ending upon the indica tions. Lab Interpretation (test Normal code = 41336-0) [facility] WITH [id number] 17:22:26 Test Item Value Reference Range Interpretation Comments WBC (test code = See_Comment [Automated 6690-2) message] The sy stem which generated this result transmitted reference range : 4.30 - 11.10 10*3/?L. The reference range was not used to interpret this result as normal/abnormal . RBC (test code = See_Comment [Automated 789-8) message] The sy stem which generated this result transmitted reference range : 3.93 - 5.25 10*6/?L. The reference range was not used to interpret this result as normal/abnormal . HGB (test code = 13.1 g/dL 11.6-15.0 718-7) HCT (test code = 37.9 % 35.7-45.2 4544-3) MCV (test code = 86.9 fL 80.6-95.5 787-2) MCH (test code = 30.0 pg 25.9-32.8 785-6) MCHC (test code = 34.6 g/dL 31.6-35.1 786-4) RDW-SD (test code = 39.0 fL 39.0-49.9 84452-2) RDW-CV (test code = 12.1 % 12.0-15.5 788-0) PLT (test code = See_Comment [Automated 777-3) message] The sy stem which generated this result transmitted reference range : 166 - 358 10*3/ ?L. The reference r yg was not used to interpret this result as normal/abnormal . MPV (test code = 9.5 fL 9.5-12.9 97090-7) NRBC/100 WBC (test See_Comment [Automat ed code = 6037596675) message] The system which generated this result transmitted reference range : 0.0 - 10.0 /100 WBCs. The refer ence range was not u sed to interpret th is result as normal/abnormal . NRBC x10^3 (test code <0.01 See_Comment [Auto mated = 3378623580) message] The s ystem which generated this result transmitted reference range : 10*3/?L. The reference range was not used to interpret this result as normal/abnormal . GRAN MAT (NEUT) % 71.1 % (test code = 770-8) IMM GRAN % (test code 0.50 % = 2644717178) LYMPH % (test code = 19.7 % 736-9) MONO % (test code = 7.3 % 5905-5) EOS % (test code = 0.9 % 713-8) BASO % (test code = 0.5 % 706-2) GRAN MAT x10^3(ANC) 7.53 10*3/uL 1.88-7.09 H (test code = 4509070049) IMM GRAN x10^3 (test 0.05 10*3/uL 0.00-0.06 code = 0408378732) LYMPH x10^3 (test code 2.08 10*3/uL 1.32-3.29 = 731-0) MONO x10^3 (test code 0.77 10*3/uL 0.33-0.92 = 742-7) EOS x10^3 (test code = 0.10 10*3/uL 0.03-0.39 711-2) BASO x10^3 (test code 0.05 10*3/uL 0.01-0.07 = 704-7) Lab Interpretation Abnormal (test code = 83937-3) [facility] URINALYSIS W SPECIFIC [id number] 18:23:00 Test Item Value Reference Range Interpretation Comments POCT U SP GRAV (test code = . 1.005-1.025 3255) POCT PH U (test code = 3254) 6 mg/dl 5-8 POCT U LEUK EST (test code = negative Negative - Negative 3263) POCT U NIT (test code = 3262) negative Negative - Negative POCT U PROT (test code = 3259) trace Negative - Negative POCT U GLU (test code = 3256) negative Negative - Negative POCT U KETONE (test code = 3258) negative Negative - Negative POCT U UROBILI (test code = . 0.2-1 3260) POCT U BILI (test code = 3261) . Negative - Negative POCT U BLD (test code = 3257) negative Negative - Negative POCT U COLOR (test code = 3266) POCT U APPEAR (test code = 3267) [facility] [id number] 18:23:00 Test Item Value Reference Range Interpretation Comments POCT PREG (test code = 1605) Positive On board controls acceptable with C Yes Line (test code = 3574) POCT PREG LOT # (test code = 3575) POCT PREG TEST DATE (test code = 3576) [facility] URINALYSIS W SPECIFIC [id number] 18:23:00 Test Item Value Reference Range Interpretation Comments POCT U SP GRAV (test code = . 1.005-1.025 3255) POCT PH U (test code = 3254) 6 mg/dl 5-8 POCT U LEUK EST (test code = negative Negative - Negative 3263) POCT U NIT (test code = 3262) negative Negative - Negative POCT U PROT (test code = 3259) trace Negative - Negative POCT U GLU (test code = 3256) negative Negative - Negative POCT U KETONE (test code = 3258) negative Negative - Negative POCT U UROBILI (test code = . 0.2-1 3260) POCT U BILI (test code = 3261) . Negative - Negative POCT U BLD (test code = 3257) negative Negative - Negative POCT U COLOR (test code = 3266) POCT U APPEAR (test code = 3267) [facility] [id number] 18:23:00 Test Item Value Reference Range Interpretation Comments POCT PREG (test code = 1605) Positive On board controls acceptable with C Yes Line (test code = 3574) POCT PREG LOT # (test code = 3575) POCT PREG TEST DATE (test code = 3576) [facility] URINALYSIS W SPECIFIC [id number] 18:23:00 Test Item Value Reference Range Interpretation Comments POCT U SP GRAV (test code = . 1.005-1.025 3255) POCT PH U (test code = 3254) 6 mg/dl 5-8 POCT U LEUK EST (test code = negative Negative - Negative 3263) POCT U NIT (test code = 3262) negative Negative - Negative POCT U PROT (test code = 3259) trace Negative - Negative POCT U GLU (test code = 3256) negative Negative - Negative POCT U KETONE (test code = 3258) negative Negative - Negative POCT U UROBILI (test code = . 0.2-1 3260) POCT U BILI (test code = 3261) . Negative - Negative POCT U BLD (test code = 3257) negative Negative - Negative POCT U COLOR (test code = 3266) POCT U APPEAR (test code = 3267) [facility] [id number] 18:23:00 Test Item Value Reference Range Interpretation Comments POCT PREG (test code = 1605) Positive On board controls acceptable with C Yes Line (test code = 3574) POCT PREG LOT # (test code = 3575) POCT PREG TEST DATE (test code = 3576) [facility] URINALYSIS W SPECIFIC [id number] 18:23:00 Test Item Value Reference Range Interpretation Comments POCT U SP GRAV (test code = . 1.005-1.025 3255) POCT PH U (test code = 3254) 6 mg/dl 5-8 POCT U LEUK EST (test code = negative Negative - Negative 3263) POCT U NIT (test code = 3262) negative Negative - Negative POCT U PROT (test code = 3259) trace Negative - Negative POCT U GLU (test code = 3256) negative Negative - Negative POCT U KETONE (test code = 3258) negative Negative - Negative POCT U UROBILI (test code = . 0.2-1 3260) POCT U BILI (test code = 3261) . Negative - Negative POCT U BLD (test code = 3257) negative Negative - Negative POCT U COLOR (test code = 3266) POCT U APPEAR (test code = 3267) [facility] [id number] 18:23:00 Test Item Value Reference Range Interpretation Comments POCT PREG (test code = 1605) Positive On board controls acceptable with C Yes Line (test code = 3574) POCT PREG LOT # (test code = 3575) POCT PREG TEST DATE (test code = 3576) [facility] [id number] 17:28:00 Test Item Value Reference Range Interpretation Comments POCT PREG (test code = 1605) Negative On board controls acceptable with C Yes Line (test code = 3574) POCT PREG LOT # (test code = 3575) POCT PREG TEST DATE (test code = 3576) [facility] [id number] 17:28:00 Test Item Value Reference Range Interpretation Comments POCT PREG (test code = 1605) Negative On board controls acceptable with C Yes Line (test code = 3574) POCT PREG LOT # (test code = 3575) POCT PREG TEST DATE (test code = 3576) [facility] URINALYSIS W/O SPECIFIC [id number] 19:29:00 Test Item Value Reference Range Interpretation Comments POCT PH U (test code = 3254) . 5-8 POCT U LEUK EST (test code = 3263) . Negative - Negative POCT U NIT (test code = 3262) . Negative - Negative POCT U PROT (test code = 3259) Trace Negative - Negative POCT U GLU (test code = 3256) Neg Negative - Negative POCT U KETONE (test code = 3258) . Negative - Negative POCT U BLD (test code = 3257) . Negative - Negative [facility] URINALYSIS W/O SPECIFIC [id number] 13:17:00 Test Item Value Reference Range Interpretation Comments POCT PH U (test code = 3254) . 5-8 POCT U LEUK EST (test code = . Negative - Negative 3263) POCT U NIT (test code = 3262) . Negative - Negative POCT U PROT (test code = 3259) trace Negative - Negative POCT U GLU (test code = 3256) negative Negative - Negative POCT U KETONE (test code = 3258) . Negative - Negative POCT U BLD (test code = 3257) . Negative - Negative [facility] URINALYSIS W/O SPECIFIC [id number] 13:17:00 Test Item Value Reference Range Interpretation Comments POCT PH U (test code = 3254) . 5-8 POCT U LEUK EST (test code = . Negative - Negative 3263) POCT U NIT (test code = 3262) . Negative - Negative POCT U PROT (test code = 3259) trace Negative - Negative POCT U GLU (test code = 3256) negative Negative - Negative POCT U KETONE (test code = 3258) . Negative - Negative POCT U BLD (test code = 3257) . Negative - Negative [facility] URINALYSIS W/O SPECIFIC [id number] 13:17:00 Test Item Value Reference Range Interpretation Comments POCT PH U (test code = 3254) . 5-8 POCT U LEUK EST (test code = . Negative - Negative 3263) POCT U NIT (test code = 3262) . Negative - Negative POCT U PROT (test code = 3259) trace Negative - Negative POCT U GLU (test code = 3256) negative Negative - Negative POCT U KETONE (test code = 3258) . Negative - Negative POCT U BLD (test code = 3257) . Negative - Negative [facility] URINALYSIS W/O SPECIFIC [id number] 15:46:00 Test Item Value Reference Range Interpretation Comments POCT PH U (test code = 3254) . 5-8 POCT U LEUK EST (test code = . Negative - Negative 3263) POCT U NIT (test code = 3262) . Negative - Negative POCT U PROT (test code = 3259) trace Negative - Negative POCT U GLU (test code = 3256) 1+ Negative - Negative POCT U KETONE (test code = 3258) . Negative - Negative POCT U BLD (test code = 3257) . Negative - Negative Lab Interpretation (test code = Abnormal 57157-0) [facility] URINALYSIS W/O SPECIFIC [id number] 15:46:00 Test Item Value Reference Range Interpretation Comments POCT PH U (test code = 3254) . 5-8 POCT U LEUK EST (test code = . Negative - Negative 3263) POCT U NIT (test code = 3262) . Negative - Negative POCT U PROT (test code = 3259) trace Negative - Negative POCT U GLU (test code = 3256) 1+ Negative - Negative POCT U KETONE (test code = 3258) . Negative - Negative POCT U BLD (test code = 3257) . Negative - Negative Lab Interpretation (test code = Abnormal 89565-7) [facility] URINALYSIS W/O SPECIFIC [id number] 14:51:00 Test Item Value Reference Range Interpretation Comments POCT PH U (test code = 3254) . 5-8 POCT U LEUK EST (test code = . Negative - Negative 3263) POCT U NIT (test code = 3262) . Negative - Negative POCT U PROT (test code = 3259) trace Negative - Negative POCT U GLU (test code = 3256) negative Negative - Negative POCT U KETONE (test code = 3258) . Negative - Negative POCT U BLD (test code = 3257) . Negative - Negative [facility]"
[2021-06-21 13:36] LABS: Absolute Lymphocytes (CBC) 1.5 K/uL (0.7-4.9); Hematocrit 39.7 % (36.0-45.0); Lymphocytes % 16.5 % (15.3-44.8); MPV 7.7 fL (7.6-11.3); RBC Red Blood Cell Count 4.53 M/uL (3.86-4.86)
[2021-06-21 13:37] LABS: Protime INR 1.05
[2021-06-21 13:52] LABS: ALT/SGPT 80 U/L (12-78); AST/SGOT 79 U/L (15-37); Albumin 4.1 g/dL (3.4-5.0); Alkaline Phosphatase 71 U/L (45-117); BUN Blood Urea Nitrogen 10 mg/dL (7-18); Bicarbonate 27 mmol/L (21-32); Bilirubin Direct 0.1 mg/dL (0-0.2); Bilirubin Total 0.6 mg/dL (0.2-1.0); Glucose Level 93 mg/dL (74-106); NT PRO-BNP 31 pg/mL (<125); Potassium 3.6 mmol/L (3.5-5.1); Protein, Total 8.4 g/dL (6.4-8.2); Sodium Level 136 mmol/L (136-145)
[2021-06-21 13:53] LABS: Troponin High Sensitivity < 3.00 pg/mL (<58.9)
--- NOTE | 2021-06-21 14:45 | ER ---
Nurse's Notes [facility] Name: Rae Gomez Age: 26 yrs Sex: Female : 1995 Arrival Date: 06/21/2021 Time: 12:43 Bed 12 Private MD: Diagnosis: Palpitations Presentation: 06/21 12:59 Chief complaint: Patient states: At a work meeting this morning and started having ww palpations. Patient admits to experiencing shortness of breath but denies any chest pain or light headedness. All symptoms have resolved. Coronavirus screen: Vaccine status: Patient reports receiving the 2nd dose of the covid vaccine. Ebola Screen: Patient denies travel to an Ebola-affected area in the 21 days before illness onset. Initial Sepsis Screen: Does the patient meet any 2 criteria? No. Patient's initial sepsis screen is negative. Does the patient have a suspected source of infection? No. Patient's initial sepsis screen is negative. Risk Assessment: Do you want to hurt yourself or someone else? Patient reports no desire to harm self or others. Onset of symptoms was June 21, 2021. 12:59 Method Of Arrival: Ambulatory ww 12:59 Acuity: PROMISE 3 ww Triage Assessment: 13:03 General: Appears in no apparent distress. comfortable, Behavior is calm, cooperative. ww Pain: Denies pain. EENT: No signs and/or symptoms were reported regarding the EENT system. Neuro: Level of Consciousness is awake, alert, obeys commands, Oriented to person, place, time, situation, Moves all extremities. Gait is steady, Speech is normal. Cardiovascular: Denies chest pain, Capillary refill < 3 seconds Patient's skin is warm and dry. Rhythm is regular. Respiratory: Airway is patent Respiratory effort is even, unlabored, Respiratory pattern is regular, symmetrical. GI: No signs and/or symptoms were reported involving the gastrointestinal system. : No signs and/or symptoms were reported regarding the genitourinary system. Derm: No signs and/or symptoms reported regarding the dermatologic system. Skin is intact, is healthy with good turgor. 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 - Social history:: Smoking status: Patient denies any tobacco usage or history of. Screenin:05 Abuse screen: Denies threats or abuse. Denies injuries from another. Nutritional ww screening: No deficits noted. Tuberculosis screening: No symptoms or risk factors identified. Fall Risk None identified. Assessment: 13:05 Reassessment: See triage assessment. ww 14:12 Reassessment: Patient appears in no apparent distress at this time. No changes from ww previously documented assessment. Patient and/or family updated on plan of care and expected duration. Pain level reassessed. Patient is alert, oriented x 3, equal unlabored respirations, skin warm/dry/pink. Vital Signs: 12:59 BP 122 / 72; Pulse 85; Resp 16; Pulse Ox 100% on R/A; Weight 79.38 kg; Height 5 ft. 4 ww in. (162.56 cm); Pain 0/10; 14:12 BP 119 / 56; Pulse 76; Resp 13; Pulse Ox 100% on R/A; ww 12:59 Body Mass Index 30.04 (79.38 kg, 162.56 cm) ww ED Course: 12:43 Patient arrived in ED. mr 12:50 Ml Chase, [facility] kb 12:50 Gregorio Stubbs MD is Attending Physician. kb 12:58 EKG done, by ED staff, reviewed by Gregorio Stubbs MD. ww 12:59 Debi Wheatley, RN is Primary Nurse. ww 13:01 Triage completed. ww 13:03 Arm band placed on right wrist. ww 13:05 Patient has correct armband on for positive identification. Bed in low position. Call ww light in reach. personnel monitor on. Pulse ox on. NIBP on. 13:16 Inserted saline lock: 20 gauge in right antecubital area, using aseptic technique. ww Blood collected. 13:52 XRAY Chest (1 view) In Process Unspecified. EDMS 14:55 No provider procedures requiring assistance completed. intact, bleeding controlled, No ww redness/swelling at site. Pressure dressing applied. Administered Medications: No medications were administered Outcome: 14:45 Discharge ordered by . kb 14:55 Discharged to home ambulatory. ww 14:55 Condition: stable 14:55 Discharge instructions given to patient, Instructed on discharge instructions, follow up and referral plans. safety practices, Demonstrated understanding of instructions, follow-up care. 14:56 Patient left the ED. ww Signatures: Dispatcher [employer] Ml Marroquin, HUNG BURLESON-Hollie Hansen mr WheatleyDebi, RN RN john
--- NOTE | 2021-06-21 14:45 | EDPHYS ---
Physician Documentation [facility] Name: Rae Gomez Age: 26 yrs Sex: Female : 1995 Arrival Date: 06/21/2021 Time: 12:43 Bed 12 Private MD: ED Physician Gregorio Stubbs HPI: 06/21 14:22 This 26 yrs old Female presents to ER via Ambulatory with complaints of Palpitations. kb 14:22 The patient presents with a history of irregular heart beat. Context: The symptoms kb occur at rest. Onset: The symptoms/episode began/occurred today, at 11:30. Duration: The patient or guardian reports multiple episodes, that have now resolved. Modifying factors: The symptoms are aggravated by nothing. The symptoms are alleviated by nothing. Associated signs and symptoms: The patient has no apparent associated signs or symptoms. Severity of symptoms: in the emergency department the symptoms have resolved. The patient has experienced similar episodes in the past. The patient has not recently seen a physician. Pt reports she was at work and had palpitations for a few minutes then they went away. States she normally has a few palpitations daily, but never as many as today. . 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 - Social history:: Smoking status: Patient denies any tobacco usage or history of. ROS: 14:22 Constitutional: Negative for fever, chills, and weight loss. kb 14:22 Cardiovascular: Positive for palpitations. 14:22 All other systems are negative. Exam: 14:22 Constitutional: This is a well developed, well nourished patient who is awake, alert, kb and in no acute distress. Head/Face: Normocephalic, atraumatic. ENT: Moist Mucous membranes Cardiovascular: Regular rate and rhythm with a normal S1 and S2. No gallops, murmurs, or rubs. No pulse deficits. Respiratory: Respirations even and unlabored. No increased work of breathing. Talking in full sentences Skin: Warm, dry with normal turgor. Normal color. MS/ Extremity: Pulses equal, no cyanosis. Neurovascular intact. Full, normal range of motion. Neuro: Awake and alert, GCS 15, oriented to person, place, time, and situation. Moves all extremities. Normal gait. Psych: Awake, alert, with orientation to person, place and time. Behavior, mood, and affect are within normal limits. Vital Signs: 12:59 BP 122 / 72; Pulse 85; Resp 16; Pulse Ox 100% on R/A; Weight 79.38 kg; Height 5 ft. 4 ww in. (162.56 cm); Pain 0/10; 14:12 BP 119 / 56; Pulse 76; Resp 13; Pulse Ox 100% on R/A; ww 12:59 Body Mass Index 30.04 (79.38 kg, 162.56 cm) ww MDM: 12:52 Patient medically screened. kb 14:22 Data reviewed: vital signs, nurses notes. Data interpreted: Pulse oximetry: on room air kb is 100 %. Interpretation: normal. 14:44 Counseling: I had a detailed discussion with the patient and/or guardian regarding: the kb historical points, exam findings, and any diagnostic results supporting the discharge/admit diagnosis, lab results, radiology results, the need for outpatient follow up, a family practitioner, to return to the emergency department if symptoms worsen or persist or if there are any questions or concerns that arise at home. 06/21 13:06 Order name: Basic Metabolic Panel; Complete Time: 13:58 kb 06/21 13:06 Order name: CBC with Diff; Complete Time: 13:39 kb 06/21 13:06 Order name: LFT's; Complete Time: 13:58 kb 06/21 13:06 Order name: Magnesium; Complete Time: 13:58 kb 06/21 13:06 Order name: NT PRO-BNP; Complete Time: 13:58 kb 06/21 13:06 Order name: PT-INR; Complete Time: 13:39 kb 06/21 13:06 Order name: Troponin HS; Complete Time: 13:58 kb 06/21 13:06 Order name: XRAY Chest (1 view) kb 06/21 13:06 Order name: EKG; Complete Time: 13:07 kb 06/21 13:06 Order name: Cardiac monitoring; Complete Time: 13:16 kb 06/21 13:06 Order name: EKG - Nurse/Tech; Complete Time: 13:07 kb 06/21 13:06 Order name: IV Saline Lock; Complete Time: 13:16 kb 08 13:06 Order name: Labs collected and sent; Complete Time: 13:16 kb 06/21 13:06 Order name: O2 Per Protocol; Complete Time: 13:07 kb 06/21 13:06 Order name: O2 Sat Monitoring; Complete Time: 13:07 kb Administered Medications: No medications were administered Disposition: 17:07 Co-signature as Attending Physician, Gregorio Stubbs MD. rn Disposition Summary: 06/21/21 14:45 Discharge Ordered Location: Home kb Condition: Stable kb Diagnosis - Palpitations kb Followup: kb - With: Emergency Department - When: As needed - Reason: Worsening of condition Followup: kb - With: Private Physician - When: 2 - 3 days - Reason: Recheck today's complaints, Continuance of care, Re-evaluation by your physician Discharge Instructions: - Discharge Summary Sheet kb - Palpitations, [id number] kb Forms: - Medication Reconciliation Form kb - Thank You Letter kb - Antibiotic Education kb - Prescription Opioid Use kb Signatures: Dispatcher [employer] Ml Marroquin, DEPUTY GENERAL COUNSEL-C DEPUTY GENERAL COUNSEL-Ckb Gregorio Stubbs MD MD rn Wood, Whitney, RN RN ww
--- NOTE | 2021-06-21 15:02 | RAD REPORT ---
EXAM DESCRIPTION: Helen Single View06/21/2021 1:52 pm CLINICAL HISTORY: Palpitations COMPARISON: none FINDINGS: The lungs appear clear of acute infiltrate. The heart is normal size IMPRESSION: No acute abnormalities displayed
[2021-06-21 15:58] VITALS: O2SAT 100
[2021-06-21 16:03] VITALS: BP 119/56
--- NOTE | 2021-06-22 12:55 | EKG ---
Test Date: 2021-06-21 Test Time: 13:00:18 Agent Licensing Clerk: PAULINA MEASUREMENT RESULTS: Intervals: Rate: 74 TX: 142 QRSD: 92 QT: 374 QTc: 415 [place]: P: 81 TX: 142 QRS: 85 T: 63 INTERPRETIVE STATEMENTS: Normal sinus rhythm Normal ECG No previous ECG available for comparison Electronically Signed On 06-22-21 12:52:12 [employer] F[employer]OR SUPERVISOR by Chele DeL os Santos
== END 2021-06-21 14:56 | disposition home or self-care (01) ==
LOC: ER 12:40
DX: R00.2 Palpitations (principal)
CPT/HCPCS: 36415; 71045; 80048; 80076; 83735; 83880; 84484; 85025; 85610; 93005; 99284

== ENCOUNTER 2021-12-30 12:43 | Emergency (ER) | payer OTHER, SELFPAY ==
--- OUTSIDE RECORDS SUMMARY | 2021-12-30 12:51 | XMS REPORT | Continuity of Care Document ---
:1995 Author Organization [facility] t Address [address] [place] [address] Care Team Providers Name Role Phone RASHMI RICH Primary Care Physician Unavailable EDDIE DOAN Attending Clinician Unavailable BRIAN KAT Attending Clinician Unavailable ZULEIKA LOO Attending Clinician Unavailable RASHMI RICH Attending Clinician Unavailable Dee Blankenship RN Attending Clinician Unavailable Abdifatah Perla Attending Clinician Rashmi Barlow Attending Clinician Carmen Mallory Attending Clinician Unavailable Noemi Vogel Attending Clinician Doctor Unassigned, [place] Attending Clinician Unavailable Visit, [place] Nurse Attending Clinician Unavailable ABDIFATAH OWENS Attending Clinician Unavailable Frederic Goodman DO Attending Clinician Provider, [facility] Attending Clinician Unavailable Ej Mcfarland Attending Clinician EJ NELSON Attending Clinician Unavailable [facility] Attending Clinician Unavailable Gabriel Saldaña PA-C Attending Clinician [phone] GABRIEL SALDAÑA JR Attending Clinician Unavailable MARIO LOEMLI Attending Clinician Unavailable JENIFFER COLINDRES Attending Clinician Unavailable Jeniffer Tovar Attending Clinician [phone] Nora Dyer MD Attending Clinician [facility] Resident Attending Clinician Unavailable Carlo Thompson Attending Clinician NORA DYER Admitting Clinician Unavailable Nora Dyer MD Admitting Clinician Payers Payer Name Policy Type Policy Number Effective Date Expiration Date Grazyna ALEJANDROS [id number] 2019 HEALTH 00:00:00 [employer] [place] - [id number] 2021 OUT OF STATE 00:00:00 Problems Condition Condition Condition Status Onset Resolution Last Treating Co mments Source Name Details Category Date Date Treatment Clinician Date Rubella Rubella Disease Active Overview: Univ ers non-immune non-immune 07-22 Address i ty of status, status, 00:00: in [place] antepartum antepartum 00 postpartu Medical m. Branch Clotting Clotting Disease Active Unive rs disorder disorder - ity of 00:00: [place] [address] [facility] [place] Obesity in Obesity in Disease Active U nivers -07 ity of 00:00: [address] BMI BMI Disease Active Univers 30.0-30.9, 30.0-30.9, 4-07 it y of adult adult 00:00: [place] [address] Medical Branch Short Short Disease Active Univers interval interval 4-07 ity of between between 00:00: [place] pregnancie pregnancie 00 Me dical s s Branch affecting affecting in first in first trimester, trimester, antepartum antepartum Cramping Cramping Disease Active Unive rs affecting affecting 4-07 ity of , , 00:00[place] antepartum antepartum 00 Me dical Branch Constipati Constipati Disease Active 2018-04 U nivers on during on during 1-18 ity of , , 00:00[place] antepartum antepartum 00 Me dical Branch Multiparou Multiparou Disease Active 2019-1 U nivers s s 0-21 ity of 00:00: [place] [address] Medical Branch Supervisio Supervisio Disease Active 2018-04 U eleazar n of high n of high 0-21 ity of risk risk 00:00: [place] , , 00 Me dical antepartum antepartum Br anch Influenza Influenza Disease Active 2018-04 Uni vers vaccinatio vaccinatio 0-21 it y of n declined n declined 00:00: [place] [address] Medical Branch Attempted Attempted Disease Active Uni vers IUD IUD 7-18 ity of removal, removal, 00:00: [place] unsuccessf unsuccessf 00 Me dical ul ul Branch BMI BMI Disease Active Univers 28.0-28.9, 28.0-28.9, 7-18 it y of adult adult 00:00: [place] [address] Medical [place] Desire for Desire for Disease Active U nivers 7-18 ity of 00:00: [place] [address] [facility] [place] Allergies, Adverse Reactions, Alerts Allergy Allergy Status Severity Reaction(s) Onset Inactive Treating Comm ents Source Name Type Date Date Clinician COPPER DRUG Active ITCHING 2012-04 Univers INGREDI 0-28 ity of 00:00: [address] Copper Propensi Active Itching 2012-04 Univers ty to 0-28 ity of adverse 00:00: [place] reaction 00 Medical s Branch Social History Social Habit Start Date Stop Date Quantity Comments Source ASSERTION 2020-06-24 [facility] 00:00:00 [facility] [place] Exposure to Not sure [facility] SARS-CoV-2 [facility] (event) [place] Tobacco use and 2020-07-30 2020-07-30 Never used Universit y of exposure 00:00:00 00:00:00 [facility] [place] Alcohol intake 2020-07-30 2020-07-30 Ex-drinker [facility] 00:00:00 00:00:00 (finding) [facility] [place] Sex Assigned At [birth year] Universit y of 00:00:00 00:00:00 [facility] [place] Smoking Status Start Date Stop Date Source Never smoker [facility] Medications Ordered Filled Start Stop Current Ordering Indication Dosage Frequency Signature Comments Components Source Medication Medication Date Date Medication? Clinician (SIG) Name Name Blood-Gluco Yes [id number] Use as Univers se Meter 4-08 directed ity of (FREESTYLE 00:00: [place] FREEDOM 00 Medical LITE) Kit Branch blood sugar 2020-0 Yes [id number] Use as Univers diagnostic 4-08 directed ity o f (FREESTYLE 00:00: [place] LITE 00 Medical STRIPS) Branch strip lancets 17 2020-0 Yes [id number] Use as U nivers gauge Misc 4-08 directed ity o f 00:00: [place] 00 Medical Branch Blood-Gluco 2020-0 Yes [id number] Use as Univers se Meter 4-08 directed ity of (FREESTYLE 00:00: [place] FREEDOM 00 Medical LITE) Kit Branch blood sugar 2020-0 Yes [id number] Use as Univers diagnostic 4-08 directed ity o f (FREESTYLE 00:00: [place] LITE 00 Medical STRIPS) Branch strip lancets 17 2020-0 Yes [id number] Use as U nivers gauge Misc 4-08 directed ity o f 00:00: [place] 00 Medical Branch Blood-Gluco 2020-0 Yes [id number] Use as Univers se Meter 4-08 directed ity of (FREESTYLE 00:00: [place] FREEDOM 00 Medical LITE) Kit Branch blood sugar 2020-0 Yes [id number] Use as Univers diagnostic 4-08 directed ity o f (FREESTYLE 00:00: [place] LITE 00 Medical STRIPS) Branch strip lancets 17 2020-0 Yes [id number] Use as U nivers gauge Misc 4-08 directed ity o f 00:00: [place] 00 Medical Branch Blood-Gluco 2020-0 Yes [id number] Use as Univers se Meter 4-08 directed ity of (FREESTYLE 00:00: [place] FREEDOM 00 Medical LITE) Kit Branch blood sugar 2020-0 Yes [id number] Use as Univers diagnostic 4-08 directed ity o f (FREESTYLE 00:00: [place] LITE 00 Medical STRIPS) Branch strip lancets 17 2020-0 Yes [id number] Use as U nivers gauge Misc 4-08 directed ity o f 00:00: [place] 00 Medical Branch Blood-Gluco 2020-0 Yes [id number] Use as Univers se Meter 4-08 directed ity of (FREESTYLE 00:00: [place] FREEDOM 00 Medical LITE) Kit Branch blood sugar 2020-0 Yes [id number] Use as Univers diagnostic 4-08 directed ity o f (FREESTYLE 00:00: [place] LITE 00 Medical STRIPS) Branch strip lancets 17 2020-0 Yes [id number] Use as U nivers gauge Misc 4-08 directed ity o f 00:00: [place] 00 Medical Branch Blood-Gluco 2020-0 Yes [id number] Use as Univers se Meter 4-08 directed ity of (FREESTYLE 00:00: [place] FREEDOM 00 Medical LITE) Kit Branch blood sugar 2020-0 Yes [id number] Use as Univers diagnostic 4-08 directed ity o f (FREESTYLE 00:00: [place] LITE 00 Medical STRIPS) Branch strip lancets 17 2020-0 Yes [id number] Use as U nivers gauge Misc 4-08 directed ity o f 00:00: [place] 00 Medical Branch Blood-Gluco 2020-0 Yes [id number] Use as Univers se Meter 4-08 directed ity of (FREESTYLE 00:00: [place] FREEDOM 00 Medical LITE) Kit Branch blood sugar 2020-0 Yes [id number] Use as Univers diagnostic 4-08 directed ity o f (FREESTYLE 00:00: [place] LITE 00 Medical STRIPS) Branch strip lancets 17 2020-0 Yes [id number] Use as U nivers gauge Misc 4-08 directed ity o f 00:00: [place] 00 Medical Branch Blood-Gluco 2020-0 Yes [id number] Use as Univers se Meter 4-08 directed ity of (FREESTYLE 00:00: [place] FREEDOM 00 Medical LITE) Kit Branch blood sugar 2020-0 Yes [id number] Use as Univers diagnostic 4-08 directed ity o f (FREESTYLE 00:00: [place] LITE 00 Medical STRIPS) Branch strip lancets 17 2020-0 Yes [id number] Use as U nivers gauge Misc 4-08 directed ity o f 00:00: [place] 00 Medical Branch Blood-Gluco 2020-0 Yes [id number] Use as Univers se Meter 4-08 directed ity of (FREESTYLE 00:00: [place] FREEDOM 00 Medical LITE) Kit Branch blood sugar 2020-0 Yes [id number] Use as Univers diagnostic 4-08 directed ity o f (FREESTYLE 00:00: [place] LITE 00 Medical STRIPS) Branch strip lancets 17 2020-0 Yes [id number] Use as U nivers gauge Misc 4-08 directed ity o f 00:00: [place] 00 Medical Branch Blood-Gluco 2020-0 Yes [id number] Use as Univers se Meter 4-08 directed ity of (FREESTYLE 00:00: [place] FREEDOM 00 Medical LITE) Kit Branch blood sugar 2020-0 Yes [id number] Use as Univers diagnostic 4-08 directed ity o f (FREESTYLE 00:00: [place] LITE 00 Medical STRIPS) Branch strip lancets 17 2020-0 Yes [id number] Use as U nivers gauge Misc 4-08 directed ity o f 00:00: [place] 00 Medical Branch Blood-Gluco 2020-0 Yes [id number] Use as Univers se Meter 4-08 directed ity of (FREESTYLE 00:00: [place] FREEDOM 00 Medical LITE) Kit Branch blood sugar 2020-0 Yes [id number] Use as Univers diagnostic 4-08 directed ity o f (FREESTYLE 00:00: [place] LITE 00 Medical STRIPS) Branch strip lancets 17 2020-0 Yes [id number] Use as U nivers gauge Misc 4-08 directed ity o f 00:00: [place] 00 Medical Branch Blood-Gluco 2020-0 Yes [id number] Use as Univers se Meter 4-08 directed ity of (FREESTYLE 00:00: [place] FREEDOM 00 Medical LITE) Kit Branch blood sugar 2020-0 Yes [id number] Use as Univers diagnostic 4-08 directed ity o f (FREESTYLE 00:00: [place] LITE 00 Medical STRIPS) Branch strip lancets 17 2020-0 Yes [id number] Use as U nivers gauge Misc 4-08 directed ity o f 00:00: [place] 00 Medical Branch Blood-Gluco 2020-0 Yes [id number] Use as Univers se Meter 4-08 directed ity of (FREESTYLE 00:00: [place] FREEDOM 00 Medical LITE) Kit Branch blood sugar 2020-0 Yes [id number] Use as Univers diagnostic 4-08 directed ity o f (FREESTYLE 00:00: [place] LITE 00 Medical STRIPS) Branch strip lancets 17 2020-0 Yes [id number] Use as U nivers gauge Misc 4-08 directed ity o f 00:00: [place] 00 Medical Branch Blood-Gluco 2020-0 Yes [id number] Use as Univers se Meter 4-08 directed ity of (FREESTYLE 00:00: [place] FREEDOM 00 Medical LITE) Kit Branch blood sugar 2020-0 Yes [id number] Use as Univers diagnostic 4-08 directed ity o f (FREESTYLE 00:00: [place] LITE 00 Medical STRIPS) Branch strip lancets 17 2020-0 Yes [id number] Use as U nivers gauge Misc 4-08 directed ity o f 00:00: [place] 00 Medical Branch Blood-Gluco 2020-0 Yes [id number] Use as Univers se Meter 4-08 directed ity of (FREESTYLE 00:00: [place] FREEDOM 00 Medical LITE) Kit Branch blood sugar 2020-0 Yes [id number] Use as Univers diagnostic 4-08 directed ity o f (FREESTYLE 00:00: [place] LITE 00 Medical STRIPS) Branch strip lancets 17 2020-0 Yes [id number] Use as U nivers gauge Misc 4-08 directed ity o f 00:00: [place] 00 Medical Branch Blood-Gluco 2020-0 Yes [id number] Use as Univers se Meter 4-08 directed ity of (FREESTYLE 00:00: [place] FREEDOM 00 Medical LITE) Kit Branch blood sugar 2020-0 Yes [id number] Use as Univers diagnostic 4-08 directed ity o f (FREESTYLE 00:00: [place] LITE 00 Medical STRIPS) Branch strip lancets 17 2020-0 Yes [id number] Use as U nivers gauge Misc 4-08 directed ity o f 00:00: [place] 00 Medical Branch Blood-Gluco 2020-0 Yes [id number] Use as Univers se Meter 4-08 directed ity of (FREESTYLE 00:00: [place] FREEDOM 00 Medical LITE) Kit Branch blood sugar 2020-0 Yes [id number] Use as Univers diagnostic 4-08 directed ity o f (FREESTYLE 00:00: [place] LITE 00 Medical STRIPS) Branch strip lancets 17 2020-0 Yes [id number] Use as U nivers gauge Misc 4-08 directed ity o f 00:00: [place] 00 Medical Branch Blood-Gluco 2020-0 Yes [id number] Use as Univers se Meter 4-08 directed ity of (FREESTYLE 00:00: [place] FREEDOM 00 Medical LITE) Kit Branch blood sugar 2020-0 Yes [id number] Use as Univers diagnostic 4-08 directed ity o f (FREESTYLE 00:00: [place] LITE 00 Medical STRIPS) Branch strip lancets 17 Yes [id number] Use as U nivers gauge Misc 4-08 directed ity o f 00:00: [place] 00 Medical Branch Yes [id number] 1{packe Take 1 Univers vit 4-07 t} Packet by ity of 33-iron-fol 00:00: mouth [place] ic-dha 00 daily. Medical (SELECT-OB Branch + DHA) 29 mg iron-1 mg -250 mg combo pack Yes [id number] 1{packe Take 1 Univers vit 4-07 t} Packet by ity of 33-iron-fol 00:00: mouth [place] ic-dha 00 daily. Medical (SELECT-OB Branch + DHA) 29 mg iron-1 mg -250 mg combo pack Yes [id number] 1{packe Take 1 Univers vit 4-07 t} Packet by ity of 33-iron-fol 00:00: mouth [place] ic-dha 00 daily. Medical (SELECT-OB Branch + DHA) 29 mg iron-1 mg -250 mg combo pack Yes [id number] 1{packe Take 1 Univers vit 4-07 t} Packet by ity of 33-iron-fol 00:00: mouth [place] ic-dha 00 daily. Medical (SELECT-OB Branch + DHA) 29 mg iron-1 mg -250 mg combo pack Yes [id number] 1{packe Take 1 Univers vit 4-07 t} Packet by ity of 33-iron-fol 00:00: mouth [place] ic-dha 00 daily. Medical (SELECT-OB Branch + DHA) 29 mg iron-1 mg -250 mg combo pack Yes [id number] 1{packe Take 1 Univers vit 4-07 t} Packet by ity of 33-iron-fol 00:00: mouth [place] ic-dha 00 daily. Medical (SELECT-OB Branch + DHA) 29 mg iron-1 mg -250 mg combo pack Yes [id number] 1{packe Take 1 Univers vit 4-07 t} Packet by ity of 33-iron-fol 00:00: mouth [place] ic-dha 00 daily. Medical (SELECT-OB Branch + DHA) 29 mg iron-1 mg -250 mg combo pack Yes [id number] 1{packe Take 1 Univers vit 4-07 t} Packet by ity of 33-iron-fol 00:00: mouth [place] ic-dha 00 daily. Medical (SELECT-OB Branch + DHA) 29 mg iron-1 mg -250 mg combo pack Yes [id number] 1{packe Take 1 Univers vit 4-07 t} Packet by ity of 33-iron-fol 00:00: mouth [place] ic-dha 00 daily. Medical (SELECT-OB Branch + DHA) 29 mg iron-1 mg -250 mg combo pack Yes [id number] 1{packe Take 1 Univers vit 4-07 t} Packet by ity of 33-iron-fol 00:00: mouth [place] ic-dha 00 daily. Medical (SELECT-OB Branch + DHA) 29 mg iron-1 mg -250 mg combo pack Yes [id number] 1{packe Take 1 Univers vit 4-07 t} Packet by ity of 33-iron-fol 00:00: mouth [place] ic-dha 00 daily. Medical (SELECT-OB Branch + DHA) 29 mg iron-1 mg -250 mg combo pack Yes [id number] 1{packe Take 1 Univers vit 4-07 t} Packet by ity of 33-iron-fol 00:00: mouth [place] ic-dha 00 daily. Medical (SELECT-OB Branch + DHA) 29 mg iron-1 mg -250 mg combo pack Yes [id number] 1{packe Take 1 Univers vit 4-07 t} Packet by ity of 33-iron-fol 00:00: mouth [place] ic-dha 00 daily. Medical (SELECT-OB Branch + DHA) 29 mg iron-1 mg -250 mg combo pack Yes [id number] 1{packe Take 1 Univers vit 4-07 t} Packet by ity of 33-iron-fol 00:00: mouth [place] ic-dha 00 daily. Medical (SELECT-OB Branch + DHA) 29 mg iron-1 mg -250 mg combo pack Yes [id number] 1{packe Take 1 Univers vit 4-07 t} Packet by ity of 33-iron-fol 00:00: mouth [place] ic-dha 00 daily. Medical (SELECT-OB Branch + DHA) 29 mg iron-1 mg -250 mg combo pack Yes [id number] 1{packe Take 1 Univers vit 4-07 t} Packet by ity of 33-iron-fol 00:00: mouth [place] ic-dha 00 daily. Medical (SELECT-OB Branch + DHA) 29 mg iron-1 mg -250 mg combo pack Yes [id number] 1{packe Take 1 Univers vit 4-07 t} Packet by ity of 33-iron-fol 00:00: mouth [place] ic-dha 00 daily. Medical (SELECT-OB Branch + DHA) 29 mg iron-1 mg -250 mg combo pack Yes [id number] 1{packe Take 1 Univers vit 4-07 t} Packet by ity of 33-iron-fol 00:00: mouth [place] ic-dha 00 daily. Medical (SELECT-OB Branch + DHA) 29 mg iron-1 mg -250 mg combo pack Yes [id number] 1{packe Take 1 Univers vit 4-07 t} Packet by ity of 33-iron-fol 00:00: mouth [place] ic-dha 00 daily. Medical (SELECT-OB Branch + DHA) 29 mg iron-1 mg -250 mg combo pack Yes [id number] 1{packe Take 1 Univers vit 4-07 t} Packet by ity of 33-iron-fol 00:00: mouth [place] ic-dha 00 daily. Medical (SELECT-OB Branch + DHA) 29 mg iron-1 mg -250 mg combo pack Yes [id number] 1{packe Take 1 Univers vit 4-07 t} Packet by ity of 33-iron-fol 00:00: mouth [place] ic-dha 00 daily. Medical (SELECT-OB Branch + DHA) 29 mg iron-1 mg -250 mg combo pack Yes [id number] 1{packe Take 1 Univers vit 4-07 t} Packet by ity of 33-iron-fol 00:00: mouth [place] ic-dha 00 daily. Medical (SELECT-OB Branch + DHA) 29 mg iron-1 mg -250 mg combo pack Yes [id number] 1{packe Take 1 Univers vit 4-07 t} Packet by ity of 33-iron-fol 00:00: mouth [place] ic-dha 00 daily. Medical (SELECT-OB Branch + DHA) 29 mg iron-1 mg -250 mg combo pack cephALEXin 2020- No [id number] 500mg Take 1 Univers (KEFLEX) 3-12 03-20 capsule by ity of 500 mg 00:00: 04:59 mouth 3 [place] capsule 00 :00 (three) Medical times Branch daily for 7 days. norethindro Yes [id number] 1{tbl} Take 1 Univers ne 0.35 mg 1-12 tablet by ity of tablet 00:00: mouth [place] 00 daily. Medical Branch norethindro Yes [id number] 1{tbl} Take 1 Univers ne 0.35 mg 1-12 tablet by ity of tablet 00:00: mouth [place] 00 daily. Medical Branch norethindro Yes [id number] 1{tbl} Take 1 Univers ne 0.35 mg 1-12 tablet by ity of tablet 00:00: mouth [place] 00 daily. Medical Branch norethindro Yes [id number] 1{tbl} Take 1 Univers ne 0.35 mg 1-12 tablet by ity of tablet 00:00: mouth [place] 00 daily. Medical Branch norethindro Yes [id number] 1{tbl} Take 1 Univers ne 0.35 mg 1-12 tablet by ity of tablet 00:00: mouth [place] 00 daily. Medical Branch norethindro Yes [id number] 1{tbl} Take 1 Univers ne 0.35 mg 1-12 tablet by ity of tablet 00:00: mouth [place] 00 daily. Medical Branch norethindro Yes [id number] 1{tbl} Take 1 Univers ne 0.35 mg 1-12 tablet by ity of tablet 00:00: mouth [place] 00 daily. Medical Branch norethindro Yes [id number] 1{tbl} Take 1 Univers ne 0.35 mg 1-12 tablet by ity of tablet 00:00: mouth [place] 00 daily. Medical Branch norethindro Yes [id number] 1{tbl} Take 1 Univers ne 0.35 mg 1-12 tablet by ity of tablet 00:00: mouth [place] 00 daily. Medical Branch norethindro Yes [id number] 1{tbl} Take 1 Univers ne 0.35 mg 1-12 tablet by ity of tablet 00:00: mouth [place] 00 daily. Medical Branch norethindro Yes [id number] 1{tbl} Take 1 Univers ne 0.35 mg 1-12 tablet by ity of tablet 00:00: mouth [place] 00 daily. [facility] [id number] 1{tbl} Take 1 Univers ne 0.35 mg 1-12 tablet by ity of tablet 00:00: mouth [place] 00 daily. [facility] [id number] 1{tbl} Take 1 Univers ne 0.35 mg 1-12 tablet by ity of tablet 00:00: mouth [place] 00 daily. [facility] [id number] 1{tbl} Take 1 Univers ne 0.35 mg 1-12 tablet by ity of tablet 00:00: mouth [place] 00 daily. [facility] [id number] 1{tbl} Take 1 Univers ne 0.35 mg 1-12 tablet by ity of tablet 00:00: mouth [place] 00 daily. [facility] [id number] 1{tbl} Take 1 Univers ne 0.35 mg 1-12 tablet by ity of tablet 00:00: mouth [place] 00 daily. [facility] [id number] 1{tbl} Take 1 Univers ne 0.35 mg 1-12 tablet by ity of tablet 00:00: mouth [place] 00 daily. Medical Branch norethindro Yes [id number] 1{tbl} Take 1 Univers ne 0.35 mg 1-12 tablet by ity of tablet 00:00: mouth [place] 00 daily. Medical Branch norethindro Yes [id number] 1{tbl} Take 1 Univers ne 0.35 mg 1-12 tablet by ity of tablet 00:00: mouth [place] 00 daily. [facility] [id number] 1{tbl} Take 1 Univers ne 0.35 mg 1-12 tablet by ity of tablet 00:00: mouth [place] 00 daily. Medical Branch norethindro Yes [id number] 1{tbl} Take 1 Univers ne 0.35 mg 1-12 tablet by ity of tablet 00:00: mouth [place] 00 daily. Medical Branch norethindro Yes [id number] 1{tbl} Take 1 Univers ne 0.35 mg 1-12 tablet by ity of tablet 00:00: mouth [place] 00 daily. Medical Branch norethindro 0 Yes [id number] 1{tbl} Take 1 Univers ne 0.35 mg 1-12 tablet by ity of tablet 00:00: mouth [place] 00 daily. Medical Branch norethindro Yes [id number] 1{tbl} Take 1 Univers ne 0.35 mg 1-12 tablet by ity of tablet 00:00: mouth [place] 00 daily. Medical Branch norethindro Yes [id number] 1{tbl} Take 1 Univers ne 0.35 mg 1-12 tablet by ity of tablet 00:00: mouth [place] 00 daily. Medical Branch norethindro Yes [id number] 1{tbl} Take 1 Univers ne 0.35 mg 1-12 tablet by ity of tablet 00:00: mouth [place] 00 daily. Medical Branch norethindro Yes [id number] 1{tbl} Take 1 Univers ne 0.35 mg 1-12 tablet by ity of tablet 00:00: mouth [place] 00 daily. Medical Branch norethindro Yes [id number] 1{tbl} Take 1 Univers ne 0.35 mg 1-12 tablet by ity of tablet 00:00: mouth [place] 00 daily. Medical Branch Miscellaneo 2020-0 Yes [id number] Use as [facility] 4-20 directed ity o f Supply 00:00: [place] (BLOOD 00 Medical PRESSURE Branch CUFF) [facility] Miscellaneo 2020-0 Yes [id number] Use as [facility] 4-20 directed ity o f Supply 00:00: [place] (BLOOD 00 Medical PRESSURE Branch CUFF) [facility] Miscellaneo 2020-0 Yes [id number] Use as [facility] 4-20 directed ity o f Supply 00:00: [place] (BLOOD 00 Medical PRESSURE Branch CUFF) [facility] Miscellaneo 2020-0 Yes [id number] Use as [facility] 08-03 directed ity o f Supply 00:00: (BLOOD 00 Medical PRESSURE Branch CUFF) [facility] Miscellaneo 2020-0 2020- No [id number] Use as Univers Medical 404-27 directed ity of Supply 00:00: 00:00 (BLOOD 00 :00 Medical PRESSURE Branch CUFF) [facility] Miscellaneo 2020-0 2020- No [id number] Use as [facility] 08-03 directed ity of Supply 00:00: 00:00 [place] (BLOOD 00 :00 Medical PRESSURE Branch CUFF) [facility] 2020-0 Yes Univers 123/iron/fo 3-31 ity of lic/omeg3s 00:00: [place] (-A-DAY [facility] WOMEN'S [place] 1 ORAL) 2020-0 Yes Univers 123/iron/fo 3-31 ity of lic/omeg3s 00:00: [place] (-A- [facility] [place] 1 ORAL) 2020-0 Yes Univers 123/iron/fo 3-31 ity of lic/omeg3s 00:00: [place] (-A- [facility] [place] 1 ORAL) 2020-0 Yes Univers 123/iron/fo 3-31 ity of lic/omeg3s 00:00: [place] (-A- [facility] [place] 1 ORAL) 2020-0 Yes Univers 123/iron/fo 3-31 ity of lic/omeg3s 00:00: [place] (-A- [facility] [place] 1 ORAL) 2020-0 Yes Univers 123/iron/fo 3-31 ity of lic/omeg3s 00:00: [place] (-A- [facility] [place] 1 ORAL) 2020-0 Yes Univers 123/iron/fo 3-31 ity of lic/omeg3s 00:00: [place] (-A- [facility] [place] 1 ORAL) 2020-0 Yes Univers 123/iron/fo 3-31 ity of lic/omeg3s 00:00: [place] (-A- [facility] [place] 1 ORAL) 2020-0 Yes Univers 123/iron/fo 3-31 ity of lic/omeg3s 00:00: [place] (-A- [facility] 1 ORAL) 2020-0 Yes Univers 123/iron/fo 3-31 ity of lic/omeg3s 00:00: [place] (-A- [facility] 1 ORAL) 2020-0 Yes Univers 123/iron/fo 3-31 ity of lic/omeg3s 00:00: [place] (-A- [facility] 1 ORAL) 2020-0 Yes Univers 123/iron/fo 3-31 ity of lic/omeg3s 00:00: [place] (-A- [facility] 1 ORAL) 2020-0 Yes Univers 123/iron/fo 3-31 ity of lic/omeg3s 00:00: [place] (A- [facility] 1 ORAL) 2020-0 Yes Univers 123/iron/fo 3-31 ity of lic/omeg3s 00:00: [place] (-A- [facility] 1 ORAL) 2020-0 Yes Univers 123/iron/fo 3-31 ity of lic/omeg3s 00:00: [place] (A- [facility] 1 ORAL) 2020-0 Yes Univers 123/iron/fo 3-31 ity of lic/omeg3s 00:00: [place] (A- [facility] 1 ORAL) 2020-0 Yes Univers 123/iron/fo 3-31 ity of lic/omeg3s 00:00: [place] (-A- [facility] 1 ORAL) 2020-0 Yes Univers 123/iron/fo 3-31 ity of lic/omeg3s 00:00: [place] (-A- [facility] 1 ORAL) 2020-0 Yes Univers 123/iron/fo 3-31 ity of lic/omeg3s 00:00: [place] (-A- [facility] 1 ORAL) 2020-0 Yes Univers 123/iron/fo 3-31 ity of lic/omeg3s 00:00: [place] (ONE-A-DAY 00 Medical WOMEN'S Branch 1 ORAL) 2020-0 Yes Univers 123/iron/fo 3-31 ity of lic/omeg3s 00:00: [place] (ONE-A-DAY Medical WOMEN'[facility] [place] 1 ORAL) 2020-0 Yes Univers 123/iron/fo 3-31 ity of lic/omeg3s 00:00: [place] (ONE-A[place]DAY [facility] [place] 1 ORAL) 2020-0 Yes Univers 123/iron/fo 3-31 ity of lic/omeg3s 00:00: [place] (ONE-A-DAY [facility] [place] 1 ORAL) 2020-0 Yes Univers 123/iron/fo 3-31 ity of lic/omeg3s 00:00: [place] (ONE-A-DAY [facility] [place] 1 ORAL) 2020-0 Yes Univers 123/iron/fo 3-31 ity of lic/omeg3s 00:00: [place] (ONE-A-DAY [facility] [place] 1 ORAL) 2020-0 Yes Univers 123/iron/fo 3-31 ity of lic/omeg3s 00:00: [place] (ONE-A-DAY [facility] [place] 1 ORAL) 2020-0 Yes Univers 123/iron/fo 3-31 ity of lic/omeg3s 00:00: [place] (ONE-A-DAY [facility] [place] 1 ORAL) 2020-0 Yes Univers 123/iron/fo 3-31 ity of lic/omeg3s 00:00: [place] (-A-DAY [facility] [place] 1 ORAL) PNV 2020-0 Yes Take by [...] PNV 2020-0 Yes Take by Univers no.153/FA/o 1-14 mouth. ity of m3/dha/epa/ 14:48: [place] fish 36 Medical ( Branch GUMMIES ORAL) PNV 2019-0 Yes Take by Univers no.153/FA/o 1-14 mouth. ity of m3/dha/epa/ 14:48: [place] fish 36 Medical ( Branch GUMMIES ORAL) Nitrofurant 2018-04 2020- No [id number] 100mg Take 1 Univers oin&Nit. 05-10 capsule by ity of Macrocryst 00:00: 00:00 mouth 2 Magnus as (MACROBID) 00 :00 (two) Medical 100 mg times Branch capsule daily. ibuprofen 2018- No 800mg Univer s (IBU) 11-05 ity of tablet 800 21:30: 09:29 [place] mg 00 :00 Medical Branch ibuprofen 2019- No 800mg Univer s (IBU) 11-05 ity of tablet 800 21:30: 09:29 [place] mg 00 :00 [facility] Immunizations Ordered Filled Immunization Date Status Comments [facility] e Immunization Name Name TDAP (ADACEL) 2019-07-18 Completed University of VACCINE 00:00:00 [facility] [place] TDAP (ADACEL) 2019-07-18 Completed University of VACCINE 00:00:00 [facility] [place] TDAP (ADACEL) 2019-07-18 Completed University of VACCINE 00:00:00 [facility] TDAP (ADACEL) 2019-07-18 Completed University of VACCINE 00:00:00 [facility] TDAP (ADACEL) 2019-07-18 Completed University of VACCINE 00:00:00 [facility] TDAP (ADACEL) 2019-07-18 Completed University of VACCINE 00:00:00 [facility] [place] TDAP (ADACEL) 2019-07-18 Completed University of VACCINE 00:00:00 [facility] [place] TDAP (ADACEL) 2019-07-18 Completed University of VACCINE 00:00:00 [facility] TDAP (ADACEL) 2019-07-18 Completed University of VACCINE 00:00:00 [place] [facility] TDAP (ADACEL) 2019-07-18 Completed University of VACCINE 00:00:00 [facility] TDAP (ADACEL) 2019-07-18 Completed University of VACCINE 00:00:00 [place] [facility] TDAP (ADACEL) 2019-07-18 Completed University of VACCINE 00:00:00 [facility] TDAP (ADACEL) 2019-07-18 Completed University of VACCINE 00:00:00 [facility] TDAP (ADACEL) 2019-07-18 Completed University of VACCINE 00:00:00 [facility] TDAP (ADACEL) 2019-07-18 Completed University of VACCINE 00:00:00 [facility] TDAP (ADACEL) 2019-07-18 Completed University of VACCINE 00:00:00 [facility] TDAP (ADACEL) 2019-07-18 Completed University of VACCINE 00:00:00 [facility] TDAP (ADACEL) 2019-07-18 Completed University of VACCINE 00:00:00 [facility] TDAP (ADACEL) 2019-07-18 Completed University of VACCINE 00:00:00 [facility] TDAP (ADACEL) 2019-07-18 Completed University of VACCINE 00:00:00 [facility] TDAP (ADACEL) 2019-07-18 Completed University of VACCINE 00:00:00 [facility] TDAP (ADACEL) 2019-07-18 Completed University of VACCINE 00:00:00 [facility] TDAP (ADACEL) 2019-07-18 Completed University of VACCINE 00:00:00 [facility] TDAP (ADACEL) 2019-07-18 Completed University of VACCINE 00:00:00 [facility] TDAP (ADACEL) 2019-07-18 Completed University of VACCINE 00:00:00 [facility] TDAP (ADACEL) 2019-07-18 Completed University of VACCINE 00:00:00 [facility] TDAP (ADACEL) 2019-07-18 Completed University of VACCINE 00:00:00 [place] [facility] TDAP (ADACEL) 2019-07-18 Completed University of VACCINE 00:00:00 [facility] TDAP (ADACEL) 2019-07-18 Completed University of VACCINE 00:00:00 [facility] TDAP (ADACEL) 2019-07-18 Completed University of VACCINE 00:00:00 [facility] TDAP (ADACEL) 2019-07-18 Completed University of VACCINE 00:00:00 [facility] TDAP (ADACEL) 2019-07-18 Completed University of VACCINE 00:00:00 [place] [facility] TDAP (ADACEL) 2019-07-18 Completed University of VACCINE 00:00:00 [place] [facility] TDAP (ADACEL) 2019-07-18 Completed University of VACCINE 00:00:00 [facility] TDAP (ADACEL) 2019-07-18 Completed University of VACCINE 00:00:00 [facility] TDAP (ADACEL) 2019-07-18 Completed University of VACCINE 00:00:00 [facility] Tdap 2009-12-11 Completed University of 00:00:00 [place] [facility] Tdap 2009-12-11 Completed University of 00:00:00 [place] [facility] Tdap 2009-12-11 Completed University of 00:00:00 [place] [facility] Tdap 2009-12-11 Completed University of 00:00:00 [facility] Tdap 2009-12-11 Completed University of 00:00:00 [facility] Tdap 2009-12-11 Completed University of 00:00:00 [place] [facility] Tdap 2009-12-11 Completed University of 00:00:00 [place] [facility] Tdap 2009-12-11 Completed University of 00:00:00 [place] [facility] Tdap 2009-12-11 Completed University of 00:00:00 [place] [facility] Tdap 2009-12-11 Completed University of 00:00:00 [facility] Tdap 2009-12-11 Completed University of 00:00:00 [facility] Tdap 2009-12-11 Completed University of 00:00:00 [place] [facility] Tdap 2009-12-11 Completed University of 00:00:00 [place] [facility] Tdap 2009-12-11 Completed University of 00:00:00 [place] [facility] TDAP 2009-12-11 Completed University of 00:00:00 [place] [facility] TDAP 2009-12-11 Completed University of 00:00:00 [place] [facility] TDAP 2009-12-11 Completed University of 00:00:00 [place] [facility] TDAP 2009-12-11 Completed University of 00:00:00 [place] [facility] TDAP 2009-12-11 Completed University of 00:00:00 [place] [facility] TDAP 2009-12-11 Completed University of 00:00:00 [place] [facility] TDAP 2009-12-11 Completed University of 00:00:00 [place] [facility] TDAP 2009-12-11 Completed University of 00:00:00 [facility] TDAP 2009-12-11 Completed University of 00:00:00 [place] [facility] TDAP 2009-12-11 Completed University of 00:00:00 [facility] TDAP 2009-12-11 Completed University of 00:00:00 [facility] TDAP 2009-12-11 Completed University of 00:00:00 [facility] TDAP 2009-12-11 Completed University of 00:00:00 [facility] TDAP 2009-12-11 Completed University of 00:00:00 [facility] TDAP 2009-12-11 Completed University of 00:00:00 [facility] TDAP 2009-12-11 Completed University of 00:00:00 [facility] TDAP 2009-12-11 Completed University of 00:00:00 [facility] TDAP 2009-12-11 Completed University of 00:00:00 [facility] TDAP 2009-12-11 Completed University of 00:00:00 [facility] TDAP 2009-12-11 Completed University of 00:00:00 [facility] TDAP 2009-12-11 Completed University of 00:00:00 [facility] TDAP 2009-12-11 Completed University of 00:00:00 [facility] TDAP 2009-12-11 Completed University of 00:00:00 [facility] TDAP 2009-12-11 Completed University of 00:00:00 [facility] TDAP 2009-12-11 Completed University of 00:00:00 [facility] TDAP 2009-12-11 Completed University of 00:00:00 [facility] TDAP 2009-12-11 Completed University of 00:00:00 [facility] TDAP 2009-12-11 Completed University of 00:00:00 [facility] TDAP 2009-12-11 Completed University of 00:00:00 [facility] TDAP 2009-12-11 Completed University of 00:00:00 [facility] TDAP 2009-12-11 Completed University of 00:00:00 [facility] Tdap 2009-12-11 Completed University of 00:00:00 [facility] [place] Tdap 2009-12-11 Completed University of 00:00:00 [facility] [place] Tdap 2009-12-11 Completed University of 00:00:00 [facility] [place] Vital Signs Vital Name Observation Time Observation Value Comments Source Systolic blood 2020-07-30 18:01:00 124 mm[Hg] Univer sity of pressure [place] [facility] Diastolic blood 2020-07-30 18:01:00 75 mm[Hg] Unive rsity of pressure [facility] [place] Heart rate 2020-07-30 18:01:00 75 /min Universi ty of [facility] [place] Respiratory rate 2020-07-30 18:01:00 17 /min Univ ersity of [facility] [place] Oxygen saturation in 2020-07-30 18:01:00 100 /min University Arterial blood by [facility] Pulse oximetry Branch Body temperature 2020-07-30 15:50:00 37.5 Birgit Univ ersity of [facility] [place] Body height 2020-07-30 15:50:00 162.6 cm Universi ty of [place] [facility] [place] Body weight 2020-07-30 15:50:00 79.379 kg Universi ty of [place] [facility] [place] BMI 2020-07-30 15:50:00 30.04 kg/m2 Universi ty of [facility] [place] Systolic blood 2020-07-26 13:57:00 124 mm[Hg] Univer sity of pressure [place] [facility] Diastolic blood 2020-07-26 13:57:00 72 mm[Hg] Unive rsity of pressure [facility] [place] Heart rate 2020-07-26 13:57:00 75 /min Universi ty of [place] [facility] [place] Body temperature 2020-07-26 13:57:00 36.78 Birgit Univ ersity of [facility] [place] Respiratory rate 2020-07-26 13:57:00 16 /min Univ ersity of [facility] [place] Body height 2020-07-26 13:57:00 162.6 cm Universi ty of [place] [facility] Body weight 2020-07-26 13:57:00 80.423 kg Universi ty of [place] [facility] BMI 2020-07-26 13:57:00 30.43 kg/m2 Universi ty of [facility] Systolic blood 2020-07-21 18:16:00 136 mm[Hg] Univer sity of pressure [place] [facility] Diastolic blood 2020-07-21 18:16:00 75 mm[Hg] Unive rsity of pressure [facility] [place] Heart rate 2020-07-21 18:16:00 86 /min Universi ty of [place] [facility] Body temperature 2020-07-21 18:16:00 36.33 Birgit Univ ersity of [place] [facility] Respiratory rate 2020-07-21 18:16:00 16 /min Univ ersity of [place] [facility] Body height 2020-07-21 18:16:00 162.6 cm Universi ty of [place] [facility] Body weight 2020-07-21 18:16:00 81.279 kg Universi ty of [place] [facility] BMI 2020-07-21 18:16:00 30.76 kg/m2 Universi ty of [facility] Systolic blood 2020-06-25 15:00:00 129 mm[Hg] Univer sity of pressure [place] [facility] Diastolic blood 2020-06-25 15:00:00 74 mm[Hg] Unive rsity of pressure [place] [facility] Heart rate 2020-06-25 15:00:00 71 /min Universi ty of [place] [facility] Body temperature 2020-06-25 15:00:00 36.83 Birgit Univ ersity of [place] [facility] Respiratory rate 2020-06-25 15:00:00 18 /min Univ ersity of [place] [facility] Body height 2020-06-25 15:00:00 162.6 cm Universi ty of [place] [facility] Body weight 2020-06-25 15:00:00 80.74 kg Universi ty of [place] [facility] BMI 2020-06-25 15:00:00 30.55 kg/m2 Universi ty of [place] [facility] Oxygen saturation in 2020-06-25 15:00:00 98 /min University of Arterial blood by [facility] Pulse oximetry Branch Systolic blood 2020-04-27 16:59:00 131 mm[Hg] Univer sity of pressure [place] [facility] Diastolic blood 2020-04-27 16:59:00 86 mm[Hg] Unive rsity of pressure [place] [facility] Heart rate 2020-04-27 16:59:00 98 /min Universi ty of [place] [facility] Body temperature 2020-04-27 16:59:00 36.28 Birgit Univ ersity of [place] [facility] Respiratory rate 2020-04-27 16:59:00 16 /min Univ ersity of [place] [facility] Body height 2020-04-27 16:59:00 162.6 cm Universi ty of [place] [facility] Body weight 2020-04-27 16:59:00 82.696 kg Universi ty of [place] [facility] BMI 2020-04-27 16:59:00 31.29 kg/m2 Universi ty of [place] [facility] Systolic blood 2020-02-21 19:32:00 114 mm[Hg] Univer sity of pressure [place] [facility] Diastolic blood 2020-02-21 19:32:00 63 mm[Hg] Unive rsity of pressure [place] [facility] Heart rate 2020-02-21 19:32:00 94 /min Universi ty of [place] [facility] Body temperature 2020-02-21 19:32:00 36.83 Birgit Univ ersity of [place] [facility] Respiratory rate 2020-02-21 19:32:00 18 /min Univ ersity of [place] [facility] Body height 2020-02-21 19:32:00 162.6 cm Universi ty of [place] [facility] Body weight 2020-02-21 19:32:00 81.92 kg Universi ty of [place] [facility] BMI 2020-02-21 19:32:00 31.00 kg/m2 Universi ty of [place] [facility] Oxygen saturation in 2020-02-21 19:32:00 98 /min University of Arterial blood by [place] [employer] judie Pulse oximetry Branch Systolic blood 2019-10-23 21:11:00 169 mm[Hg] Univer sity of pressure [place] [facility] Diastolic blood 2019-10-23 21:11:00 145 mm[Hg] Unive rsity of pressure [place] [facility] Heart rate 2019-10-23 21:11:00 160 /min Universi ty of [place] [facility] Body temperature 2019-10-23 21:11:00 36.83 Birgit Univ ersity of [place] [facility] Respiratory rate 2019-10-23 21:11:00 32 /min Univ ersity of [place] [facility] Body height 2019-10-23 21:11:00 162.6 cm Universi ty of [place] [facility] Body weight 2019-10-23 21:11:00 77.565 kg Universi ty of [place] [facility] BMI 2019-10-23 21:11:00 29.35 kg/m2 Universi ty of [place] [facility] Oxygen saturation in 2019-10-23 21:11:00 98 /min University of Arterial blood by [place] [employer] judie Pulse oximetry Branch Systolic blood 2019-10-23 21:11:00 169 mm[Hg] Univer sity of pressure [place] [facility] Diastolic blood 2019-10-23 21:11:00 145 mm[Hg] Unive rsity of pressure [place] [facility] Heart rate 2019-10-23 21:11:00 160 /min Universi ty of [place] [facility] Body temperature 2019-10-23 21:11:00 36.83 Birgit Univ ersity of [place] [facility] Respiratory rate 2019-10-23 21:11:00 32 /min Univ ersity of [place] [facility] Body height 2019-10-23 21:11:00 162.6 cm Universi ty of [place] [facility] Body weight 2019-10-23 21:11:00 77.565 kg Universi ty of [place] [facility] BMI 2019-10-23 21:11:00 29.35 kg/m2 Universi ty of [facility] Oxygen saturation in 2019-10-23 21:11:00 98 /min University of Arterial blood by [facility] Pulse oximetry Branch Systolic blood 2019-07-18 19:26:00 133 mm[Hg] Univer sity of pressure [place] [facility] Diastolic blood 2019-07-18 19:26:00 76 mm[Hg] Unive rsity of pressure [place] [facility] Heart rate 2019-07-18 19:26:00 87 /min Universi ty of [place] [facility] Body temperature 2019-07-18 19:26:00 36.61 Birgit Univ ersity of [facility] Respiratory rate 2019-07-18 19:26:00 16 /min Univ ersity of [facility] Body height 2019-07-18 19:26:00 162.6 cm Universi ty of [place] [facility] Body weight 2019-07-18 19:26:00 76.856 kg Universi ty of [place] [facility] BMI 2019-07-18 19:26:00 29.08 kg/m2 Universi ty of [place] [facility] Systolic blood 2019-07-18 19:26:00 133 mm[Hg] Univer sity of pressure [place] [facility] Diastolic blood 2019-07-18 19:26:00 76 mm[Hg] Unive rsity of pressure [place] [facility] Heart rate 2019-07-18 19:26:00 87 /min Universi ty of [place] [facility] Body temperature 2019-07-18 19:26:00 36.61 Birgit Univ ersity of [facility] Respiratory rate 2019-07-18 19:26:00 16 /min Univ ersity of [facility] [place] Body height 2019-07-18 19:26:00 162.6 cm Universi ty of [place] [facility] [place] Body weight 2019-07-18 19:26:00 76.856 kg Universi ty of [place] [facility] BMI 2019-07-18 19:26:00 29.08 kg/m2 Universi ty of [facility] Systolic blood 2019-06-24 13:14:00 135 mm[Hg] Univer sity of pressure [facility] Diastolic blood 2019-06-24 13:14:00 70 mm[Hg] Unive rsity of pressure [facility] [place] Heart rate 2019-06-24 13:14:00 84 /min Universi ty of [facility] [place] Body temperature 2019-06-24 13:14:00 36.5 Birgit Univ ersity of [facility] [place] Respiratory rate 2019-06-24 13:14:00 16 /min Univ ersity of [facility] [place] Body height 2019-06-24 13:14:00 162.6 cm Universi ty of [facility] [place] Body weight 2019-06-24 13:14:00 75.524 kg Universi ty of [place] [facility] [place] BMI 2019-06-24 13:14:00 28.58 kg/m2 Universi ty of [facility] [place] Systolic blood 2019-06-16 04:18:00 125 mm[Hg] Univer sity of pressure [facility] [place] Diastolic blood 2019-06-16 04:18:00 66 mm[Hg] Unive rsity of pressure [facility] [place] Heart rate 2019-06-16 04:18:00 74 /min Universi ty of [facility] [place] Body temperature 2019-06-16 04:18:00 37 Birgit Univ ersity of [facility] [place] Respiratory rate 2019-06-16 04:18:00 17 /min Univ ersity of [facility] [place] Body height 2019-06-16 04:18:00 162.6 cm Universi ty of [facility] [place] Body weight 2019-06-16 04:18:00 73.12 kg Universi ty of [facility] BMI 2019-06-16 04:18:00 27.67 kg/m2 Universi ty of [facility] [place] Oxygen saturation in 2019-06-16 04:18:00 100 /min University of Arterial blood by [facility] Pulse oximetry Branch Systolic blood 2019-05-27 15:42:00 115 mm[Hg] Univer sity of pressure [place] [facility] Diastolic blood 2019-05-27 15:42:00 65 mm[Hg] Unive rsity of pressure [place] [facility] Heart rate 2019-05-27 15:42:00 80 /min Universi ty of [place] [facility] Body temperature 2019-05-27 15:42:00 36.78 Birgit Univ ersity of [place] [facility] Respiratory rate 2019-05-27 15:42:00 16 /min Univ ersity of [place] [facility] Body height 2019-05-27 15:42:00 162.6 cm Universi ty of [place] [facility] Body weight 2019-05-27 15:42:00 71.895 kg Universi ty of [place] [facility] BMI 2019-05-27 15:42:00 27.21 kg/m2 Universi ty of [place] [facility] Diastolic blood 2019-04-29 14:44:00 75 mm[Hg] Unive rsity of pressure [place] [facility] Heart rate 2019-04-29 14:44:00 93 /min Universi ty of [place] [facility] Body temperature 2019-04-29 14:44:00 36.83 Birgit Univ ersity of [place] [facility] Respiratory rate 2019-04-29 14:44:00 16 /min Univ ersity of [place] [facility] Body height 2019-04-29 14:44:00 162.6 cm Universi ty of [place] [facility] Body weight 2019-04-29 14:44:00 68.295 kg Universi ty of [place] [facility] BMI 2019-04-29 14:44:00 25.84 kg/m2 Universi ty of [place] [facility] Systolic blood 2019-04-29 14:44:00 127 mm[Hg] Univer sity of pressure [place] [facility] Systolic blood 2018-11-05 19:14:00 122 mm[Hg] Univer sity of pressure [place] [facility] Diastolic blood 2018-11-05 19:14:00 80 mm[Hg] Unive rsity of pressure [place] [facility] Heart rate 2018-11-05 19:14:00 110 /min Universi ty of [place] [facility] Body temperature 2018-11-05 19:14:00 36.83 Birgit Univ ersity of [place] [facility] Respiratory rate 2018-11-05 19:14:00 18 /min Univ ersity of [place] [facility] Body height 2018-11-05 19:14:00 162.6 cm [facility] Body weight 2018-11-05 19:14:00 74.191 kg [facility] BMI 2018-11-05 19:14:00 28.08 kg/m2 [facility] Procedures Procedure Date / Time Performing Clinician Source Performed US FIRST 2020-07-30 18:26:46 Noemi Shields [facility] TRIMESTER LESS THAN 14 Medical [facility] ranch WEEKS WITH TRANSVAGINAL BASIC METABOLIC PANEL 2020-07-30 17:00:00 Noemi Shields [facility] (NA, K, CL, CO2, [facility] GLUCOSE, BUN, CREATININE, CA) TOTAL BETA HCG ASSAY 2020-07-30 17:00:00 [facility] WITH DIFF 2020-07-30 17:00:00 Noemi Shields [facility] PROTHROMBIN TIME / INR 2020-07-30 17:00:00 Noemi Shields [facility] ACTIVATED PARTIAL 2020-07-30 17:00:00 Neomi Shields [facility] THRMPLAS [facility] URINALYSIS 2020-07-30 17:00:00 Noemi Shields [facility] CONSENT/REFUSAL FOR 2020-07-30 15:34:33 [facility] POCT TEST 2020-07-21 18:23:00 [facility] URINALYSIS 2020-07-21 18:22:[address] [facility] REPORT OF 2020-07-21 05:01:00 Doctor Unassigned, No Un iversity [facility] POCT TEST 2020-04-27 17:28:00 Abdifatah [facility] TDAP (ADACEL) 2019-07-18 19:38:02 Abdifatah Owens [facility] IMMUNIZATION [facility] POCT URINALYSIS W/O 2019-07-18 19:29:00 Abdifatah Owens [facility] SPECIFIC GRAVITY [facility] STERILIZATION CONSENT 2019-07-18 05:01:00 Doctor Unassigned, No [facility] POCT URINALYSIS W/O 2019-06-24 13:17:00 Abdifatah Owens [facility] ASSIGNMENT OF BENEFITS 2019-06-16 04:11:06 Doctor Unassigned, No [facility] POCT URINALYSIS W/O 2019-05-27 15:46:00 Abdifatah Owens [facility] POCT URINALYSIS W/O 2019-04-29 14:51:00 [facility] Start End Encounter Admission Attending Care Care Encounter Source Date/Time Date/Time Type Type Clinicians Facility Department ID 2021-02-13 Emergency [facility] [id number] Univers 13:23:12 [facility] 2021-02-11 Emergency [facility] [id number] Univers 05:53:15 [facility] 2021-02-10 Outpatient P [facility] [id number] Univers [facility]:52[facility] Out[facility] P [facility] [id number] Univers 11:52:25 [facility] 2021-08-01 2021-08-01 Outpatient R [facility] [id number] Univers 15:00:00 15:00:00 [id number] [facility] 2021-08-01 2021-08-01 Outpatient R FRANKI, [facility] [id number] Univers 15:00:00 15:00:00 EDDIE ity o [facility] 2021-06-23 2021-06-23 Outpatient R NORTH, [facility] [id number] -[id number] Univers 10:40:00 10:40:00 BRIAN [id number] ity o f [facility] 2021-06-23 2021-06-23 Outpatient R NORTH, [facility] [id number] Univers 10:40:00 10:40:00 BRIAN ity o f [facility] 2021-04-14 2021-04-14 Outpatient R [facility] [id number] Univers 18:30:00 18:30:00 [id number] [facility] 2021-04-14 2021-04-14 Outpatient R EZE [facility] [id number] Univers 18:30:00 18:30:00 ZULEIKA ity [facility] 2020-11-11 2020-11-11 Outpatient [facility] [id number] Univers 12:00:00 12:00:00 [id number] ity [facility] 2020-08-19 2020-08-19 Outpatient R [facility] [id number] -[id number] Univers 08:00:00 08:00:00 [id number] ity [facility] 2020-08-18 2020-08-18 [facility] [id number] -[id number] Univers 10:45:00 10:45:00 ROSLUIS [id number] ity o [facility] 2020-08-18 2020-08-18 Outpatient [facility] [id number] Univers 10:45:00 10:45:00 ROSNDA ity o f [facility] 2020-08-08 2020-08-08 Nurse Phuong DIAZ 1.2.840.114 [id number] Univers 00:00:00 00:00:00 Triage d, Dee GRAHAM 350.1.13.10 ity [facility] 4.2.7.2.686 Magnus as [phone] [address] 2020-08-05 2020-08-05 Outpatient R [facility] [id number] Univers 09:00:00 09:00:00 [id number] ity [facility] 2020-08-05 2020-08-05 Outpatient R [facility] [id number] Univers 09:00:00 09:00:00 ity [facility] 2020-08-04 2020-08-04 Kala Owens [facility] 1.2.040.090 [id number] Univers 00:00:00 00:00:00 Abdifatah Negrete IAP DISPLAYS ANALYST 350.1.13.10 it y [address]7.2.686 Magnus as MATERNAL [phone] [facility] ical & CHILD [address] [place] [address] 2020-08-03 2020-08-03 Telephone Hilario [facility] 1.2.188.248 [id number] Univers 00:00:00 00:00:00 Inganda R IAP DISPLAYS ANALYST 350.1.13.10 ity of [facility] 4.2.7.2.686 Magnus as MATERNAL [phone] [facility] & [address] 2020-08-02 2020-08-02 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 114 [id number] Univers 08:25:10 08:43:40 Visit Rashmi Rich R IAP DISPLAYS ANALYST 350.1.13.10 ity of [facility] 4.2.7.2.686 Magnus as MATERNAL [phone] [address] 2020-08-02 2020-08-02 Outpatient R [facility] [id number] -[id number] Univers 08:30:00 08:30:00 [id number] ity of [facility] 2020-08-02 2020-08-02 Outpatient [facility] [id number] Univers 08:30:00 08:30:00 RASHMI ity o f [facility] 2020-07-30 2020-07-30 Emergency [facility] 1.2.059.527 [id number] Univers 10:53:00 14:32:00 Noemi [facility] 350.1.13.10 i ty [facility] 4.2.7.2.686 [place] [facility] [phone] [address] 2020-07-30 2020-07-30 Telephone [facility] 1.2.358.020 [id number] Univers 00:00:00 00:00:00 Rashmi R IAP DISPLAYS ANALYST 350.1.13.10 ity of [facility] 4.2.7.2.686 Magnus as MATERNAL [phone] [facility] & CHILD [address] [place] [address] 2020-07-30 2020-07-30 Orders Doctor DIAZ 1.2.840.114 [id number] Univers 00:00:00 00:00:00 Only Unassigned, GLADYS 350.1.13.10 ity of [place] [facility] 4.2.7.2.686 Magnus as [phone] [address] 2020-07-29 2020-07-29 [facility]phone [facility] 1.2.534.564 [id number] Univers 00:00:00 00:00:00 Hernana R IAP DISPLAYS ANALYST 350.1.13.10 ity of [facility] 4.2.7.2.686 Magnus as MATERNAL [phone] [facility] ical & CHILD [address] [place] [address] 2020-07-28 2020-07-28 [facility]phone [facility] 1.2.345.999 [id number] Univers 00:00:00 00:00:00 Hernana R IAP DISPLAYS ANALYST 350.1.13.10 ity of [facility] 4.2.7.2.686 Magnus as MATERNAL [phone] [address] 2020-07-26 2020-07-26 Outpatient [facility] [id number] Univers 09:00:00 09:00:00 [id number] ity of [facility] 2020-07-26 2020-07-26 Outpatient [facility] [id number] Univers 09:00:00 09:00:00 RASHMI ity o f [facility] 2020-07-26 2020-07-26 [facility] 1.2 .840.114 [id number] Univers 08:42:43 08:57:43 Visit Rashmi Rich IAP DISPLAYS ANALYST 350.1.13.10 ity of [facility] 4.2.7.2.686 Magnus as MATERNAL [phone] [facility] & CHILD [address] [place] [address] 2020-07-26 2020-07-26 Letter [facility] 1.2.840.114 [id number] Univers 00:00:00 00:00:00 (Out) Rashmi Rodriguez IAP DISPLAYS ANALYST 350.1.13.10 ity of [facility] 4.2.7.2.686 Magnus as MATERNAL [phone] [facility] & CHILD [address] [place] [address] 2020-07-22 2020-07-22 Outpatient Jennifer OWENS [facility] [id number] Univers 08:30:00 08:30:00 ABDIFATAH [id number] ity of [facility] 2020-07-22 2020-07-22 Outpatient [facility] [id number] Univers 08:30:00 08:30:00 ABDIFATAH ity of [facility] 2020-07-22 2020-07-22 Telephone [facility] 1.2.314.931 [id number] Univers 00:00:00 00:00:00 Roslaylanda R IAP DISPLAYS ANALYST 350.1.13.10 ity of REGIONAL 4.2.7.2.686 Magnus as MATERNAL [phone] Med ical & CHILD [address] [place] [address] 2020-07-22 2020-07-22 [facility] 1.2.840.114 [id number] Univers 00:00:00 00:00:00 Abdifatah Negrete IAP DISPLAYS ANALYST 350.1.13.10 it y of REGIONAL 4.2.7.2.686 Magnus as MATERNAL [phone] Med ical & CHILD [address] [place] [address] 2020-07-22 2020-07-22 [facility] 1.2.138.193 [id number] Univers 00:00:00 00:00:00 Roshunda R IAP DISPLAYS ANALYST 350.1.13.10 ity of REGIONAL 4.2.7.2.686 Magnus as MATERNAL [phone] Med ical & CHILD [address] [place] [address] 2020-07-22 2020-07-22 [facility] 1.2.349.443 [id number] Univers 00:00:00 00:00:00 Roshunda R IAP DISPLAYS ANALYST 350.1.13.10 ity of REGIONAL 4.2.7.2.686 Magnus as MATERNAL [phone] Med ical & CHILD [address] [place] [address] 2020-07-22 2020-07-22 [facility] 1.2.189.309 [id number] Univers 00:00:00 00:00:00 Roshunda R IAP DISPLAYS ANALYST 350.1.13.10 ity of REGIONAL 4.2.7.2.686 Magnus as MATERNAL [phone] Med ical & CHILD [address] [place] [address] 2020-07-21 2020-07-21 Initial Hilario [facility] 1.2.840.114 [id number] Univers 12:47:55 13:51:32 Inganda R IAP DISPLAYS ANALYST 350.1.13.10 ity of Visit [facility] 4.2.7.2.686 Magnus as MATERNAL [phone] Med ical & CHILD 107 [facility] 2020-07-21 2020-07-21 Outpatient R [facility] [id number] Univers 12:30:00 12:30:00 [id number] ity [facility] 2020-07-21 2020-07-21 Outpatient R [facility] [id number] Univers 12:30:00 12:30:00 ity [facility] 2020-07-21 2020-07-21 Orders Doctor JOE 1.2.840.114 [id number] Univers 00:00:00 00:00:00 Only Unassigned, GLADYS 350.1.13.10 ity of [place] [facility] 4.2.7.2.686 Magnus as [phone] [address] 2020-07-06 2020-07-06 Patient Rex [facility] 1.2.840.114 [id number] Univers 00:00:00 00:00:00 Outreach Frederic PRIMARY 350.1.13.10 i ty of [facility] 4.2.7.2.686 [place] [phone] Me dical [address] 2020-06-25 2020-06-25 Urgent Provider, [facility] 1.2.840.114 [id number] Univers 08:53:08 09:13:08 Care Diane [facility] 350.1.13.10 ity [facility] 4.2.7.2.686 Magnus as essbetsy [phone] [place] dical nal [address] 2020-06-25 2020-06-25 Outpatient R [facility] [id number] Univers 08:40:00 08:40:00 [id number] ity [facility] 2020-06-25 2020-06-25 Outpatient R [facility] [id number] Univers 08:40:00 08:40:00 ity [facility] 2020-05-11 2020-05-11 Outpatient R [facility] [id number] Univers 15:15:00 15:15:00 [id number] ity [facility] 2020-05-11 2020-05-11 Outpatient R [facility] [id number] Univers 15:15:00 15:15:00 ity [facility] 2020-04-27 2020-04-27 Office [facility] 1.2.340.153 [id number] Univers 10:46:59 11:30:06 Visit Abdifatah Negrete IAP DISPLAYS ANALYST 350.1.13.10 it y of REGIONAL 4.2.7.2.686 Magnus as MATERNAL [id number] [facility] & CHILD [address] [place] [address] 2020-04-27 2020-04-27 Out[facility] [id number] Univers 10:45:00 10:45:00 ABDIFATAH [id number] [facility] 2020-04-27 2020-04-27 Outpatient [facility] [id number] Univers 10:45:00 10:45:00 ABDIFATAH [facility] 2020-04-27 2020-04-27 Telephone [facility] 1.2.840.114 [id number] Univers 00:00:00 00:00:00 Abdifatah Negrete IAP DISPLAYS ANALYST 350.1.13.10 it y of REGIONAL 4.2.7.2.686 Magnus as MATERNAL [phone] [facility] & [address] 2020-04-07 2020-04-07 Outpatient R [facility] [id number] Univers 11:00:00 11:00:00 [id number] ity [facility] 2020-04-06 2020-04-06 Outpatient R [facility] [id number] Univers 13:50:00 13:50:00 [id number] ity [facility] 2020-04-06 2020-04-06 Outpatient [facility] [id number] Univers 13:50:00 13:50:00 EJ [facility] 2020-02-21 2020-02-21 Nurse Nurse, [facility] 1.2 .840.114 [id number] Univers 13:09:47 13:24:47 Visit Gabriel Saldaña [facility] 350.1.13 .10 ity of [place] 4.2.7.2.686 Magnus as Professio [phone] [place] dical [facility] [address] 2020-02-21 2020-02-21 Outpatient R [facility] [id number] -[id number] Univers 13:15:00 13:15:00 ity of [facility] 2020-02-21 2020-02-21 Outpatient R PIPER [facility] [id number] Univers 13:15:00 13:15:00 GABRIEL GARCIA it y of [facility] 2019-12-25 2019-12-25 Outpatient R [facility] [id number] Univers 19:40:00 19:40:00 ity of [facility] 2019-12-25 2019-12-25 Outpatient [facility] [id number] Univers 19:40:00 19:40:00 MARIO ity [facility] 2019-11-30 2019-11-30 Nurse Phuong DIAZ 1.2.840.114 [id number] Univers 00:00:00 00:00:00 Triage dDee 350.1.13.10 ity of [place] [address].2.7.2.686 Magnus as [phone] [address] 2019-10-23 2019-10-23 Outpatient R [facility] [id number] -[id number] Univers 16:40:00 16:40:00 ity of [facility] 2019-10-23 2019-10-23 Outpatient R [facility] [id number] Univers 16:40:00 16:40:00 ity [facility] 2019-10-23 2019-10-23 Urgent Provider, [facility] 1.2.802.578 [id number] 16:04:56 16:24:56 Care [facility] 350.1.13.10 Care [place] 4.2.7.2.686 Professio [phone] nal [facility] 2019-10-23 2019-10-23 Urgent Provider, [facility] 1.2.840.114 [id number] Univers 16:04:56 16:24:56 Care [facility] 350.1.13.10 [facility] 4.2.7.2.686 Magnus as Professio [phone] [facility] [address] 2019-08-18 2019-08-18 Outpatient R AKINSIPE, [facility] [id number] Univers 14:45:00 14:45:00 JENIFFER [id number] ity o [facility] 2019-08-18 2019-08-18 Outpatient R AKINSIPE, [facility] [id number] Univers 14:45:00 14:45:00 JENIFFER ity o [facility] 2019-08-18 2019-08-18 Outpatient R AKINSIPE, [facility] [id number] Univers 14:00:00 14:00:00 JENIFFER liu [facility] 2019-08-04 2019-08-04 Telemedici [facility] 1.2.840.114 [id number] 12:33:29 14:43:25 ne Visit [facility] C IAP DISPLAYS ANALYST 350.1.13.10 [facility] 4.2.7.2.686 MATERNAL [phone] & CHILD [address] [place] [address] 2019-08-04 2019-08-04 Telemedici [facility] 1.2.840.114 [id number] Univers 12:33:29 14:43:25 ne Visit [facility] C IAP DISPLAYS ANALYST 350.1.13.10 [facility] 4.2.7.2.686 Magnus as MATERNAL [phone] [facility] & CHILD [address] [place] [address] 2019-08-04 2019-08-04 Outpatient R AKINSIPE, [facility] [id number] Univers 14:30:00 14:30:00 JENIFFER [id number] ity [facility] 2019-08-04 2019-08-04 Outpatient R AKINSIPE, [facility] [id number] Univers 14:30:00 14:30:00 JENIFFER itjay o [facility] 2019-08-01 2019-08-01 Telephone [facility] 1.2.840.114 [id number] [facility] 00:00:00 00:00:00 Jeniffer C IAP DISPLAYS ANALYST 350.1.13.10 ity of REGIONAL 4.2.7.2.686 Magnus as MATERNAL [phone] Med ical & CHILD [address] [place] [address] 2019-08-01 2019-08-01 Telephone [facility], [facility] 1.2.840.114 [id number] 00:00:00 00:00:00 Jeniffer C IAP DISPLAYS ANALYST 350.1.13.10 REGIONAL 4.2.7.2.686 MATERNAL [id number] & CHILD [address] [place] [address] 2019-07-29 2019-07-29 Telephone Akinpe, [facility] 1.2.840.114 [id number] Univers 00:00:00 00:00:00 Jeniffer C IAP DISPLAYS ANALYST 350.1.13.10 ity of REGIONAL 4.2.7.2.686 Magnus as MATERNAL [phone] [facility] ical & CHILD [address] [place] [address] 2019-07-29 2019-07-29 Telephone Akinpe, [facility] 1.2.840.114 [id number] 00:00:00 00:00:00 Jeniffer C IAP DISPLAYS ANALYST 350.1.13.10 REGIONAL 4.2.7.2.686 MATERNAL [phone] & CHILD [address] [place] [address] 2019-07-18 2019-07-18 Routine Arturope, [facility] 1.2.158.578 [id number] Univers 14:00:22 14:15:22 Jeniffer C IAP DISPLAYS ANALYST 350.1.13.10 ity of Visit REGIONAL 4.2.7.2.686 Magnus as MATERNAL [id number] Med ical & CHILD [address] [place] [address] 2019-07-18 2019-07-18 Routine Akinsipe, [facility] 1.2.000.467 [id number] 14:00:22 14:15:22 Jeniffer C IAP DISPLAYS ANALYST 350.1.13.10 Visit REGIONAL 4.2.7.2.686 MATERNAL [phone] & CHILD [address] [place] [address] 2019-07-18 2019-07-18 Outpatient R BERNADINE [facility] [id number] Univers 14:15:00 14:15:00 JENIFFER itjay o f [facility] 2019-07-18 2019-07-18 Outpatient R ROMAN [facility] [id number] Univers 14:00:00 14:00:00 ABDIFATAH [id number] [facility] 2019-07-18 2019-07-18 Outpatient Jennifer OWENS [facility] [id number] Univers 14:00:00 14:00:00 ABDIFATAH liu [facility] 2019-07-18 2019-07-18 Orders Doctor DIAZ 1.2.840.114 [id number] Univers 00:00:00 00:00:00 Only Unassigned, GLADYS 350.1.13.10 ity of [place] [facility] 4.2.7.2.686 Magnus as [phone] [address] 2019-07-18 2019-07-18 Orders Doctor JOE 1.2.840.114 [id number] 00:00:00 00:00:00 Only Unassigned, GLADYS 350.1.13.10 [place] [facility] 4.2.7.2.686 [id number] [facility] 2019-07-08 2019-07-09 [facility] 1.2.840.114 [id number] Univers 08:22:02 15:52:14 ne Visit Abdifatah Negrete IAP DISPLAYS ANALYST 350.1.13.10 i ty of [facility] 4.2.7.2.686 Magnus as MATERNAL [phone] Med ical & CHILD [address] [place] [address] 2019-07-08 2019-07-09 [facility] 1.2.840.114 [id number] 08:22:02 15:52:14 ne Visit Abdifatah Negrete IAP DISPLAYS ANALYST 350.1.13.10 REGIONAL 4.2.7.2.686 MATERNAL [phone] & CHILD [address] [place] [address] 2019-07-08 2019-07-08 Outpatient Jennifer OWENS [facility] [id number] Univers 08:15:00 08:15:00 ABDIFATAH [id number] alexa [facility] 2019-07-08 2019-07-08 Outpatient Jennifer OWENS [facility] [id number] Univers 08:15:00 08:15:00 ABDIFTAAH liu [facility] 2019-06-24 2019-06-24 Routine [facility] 1.2.800.481 [id number] Univers 07:58:27 08:25:48 Abdifatah N IAP DISPLAYS ANALYST 350.1.13.10 i ty of Visit [facility] 4.2.7.2.686 Magnus as MATERNAL [id number] Med ical & CHILD [address] [place] [address] 2019-06-24 2019-06-24 Outpatient R ROMAN [facility] [id number] Univers 08:00:00 08:00:00 ABDIFATAH itjay [facility] 2019-06-15 2019-06-15 [facility] Nora Dyer [facility] 1.2.840.114 [id number] Univers 22:12:00 23:10:00 Encounter Alden [place] 350.1.13.10 ity [facility] 4.2.7.2.686 [place] [facility] [phone] [address] 2019-05-27 2019-05-27 Routine [facility] 1.2.537.375 [id number] Univers 09:31:41 10:01:17 Abdifatah N IAP DISPLAYS ANALYST 350.1.13.10 i ty of Visit [facility] 4.2.7.2.686 Magnus as MATERNAL [id number] Med ical & CHILD [address] [place] [address] 2019-05-09 2019-05-09 Telephone [facility] 1.2.840.114 [id number] Univers 00:00:00 00:00:00 Abdifatah Negrete IAP DISPLAYS ANALYST 350.1.13.10 it y of REGIONAL 4.2.7.2.686 Magnus as MATERNAL [id number] Med ical & CHILD [address] [place] [address] 2019-04-29 2019-04-29 Routine [facility] 1.2.859.518 [id number] Univers 08:40:04 08:55:04 Abdifatah N IAP DISPLAYS ANALYST 350.1.13.10 i ty of Visit [facility] 4.2.7.2.686 Magnus as MATERNAL [id number] [facility] ical & CHILD [address] [place] [address] 2018-11-05 2018-11-05 Office Pool, [facility] Resident UNIVERSIT 1.2.8 40.114 [id number] Univers 14:05:21 15:35:48 Visit Carlo Thompson 350.1.13.10 ity of CLINICS 4.2.7.2.686 Tai doran [phone] [facility] [address] Results Test Description Test Time Test Results [...] weeks early vaginal bleeding r/o ectopic . LMP06/10/2020 COMPARISON: 03/10/2019 FINDINGS: Uterus measures 9.7 x [...] to early .Recommend close beta-hCG follow-up. TOTAL [facility]) 2020-07-30 18:32:37 Test Item Value Reference Range Interpretation Comme nts BETA HCG (test code = See_Comment [Auto mated message] The [id number]) system which ge nerated this result transmit urbano reference range : Non- fe male and male patients: <5 mIU/mL. The reference r yg was not used to interpr et this result as jacques l/abnormal. CARLOS (test code = CARLOS) Gestational Age ?Range (mIU/mL) 1-10 ?Weeks ?09-44844092-67 Weeks ?93364-53375524-07 Weeks ?2797-67658347-61 Weeks ?9047-277860 Biotin has been reported to cause a negative bias, interpret results relative to patient's use of biotin. [facility] 18:00[facility]18 Test Item Value Reference Range Interpretation Comments APPEARANCE (test code = Clear Clear 8855674039) COLOR (test code = Yellow Yellow 4811598956) PH (test code = 4.8-8.0 1602689723) SP GRAVITY (test code = 1.003-1.030 5297980672) GLU U QUAL (test code = Normal Normal 5458775154) BLOOD (test code = 1+ Negative A 5349760187) KETONES (test code = Negative Negative 1745115384) PROTEIN (test code = Negative Negative 2887-8) UROBILIN (test code = Normal Normal 0522969632) BILIRUBIN (test code = Negative Negative 3201902395) NITRITE (test code = Negative Negative 6023014657) LEUK SHARRON (test code = Negative Negative 2625513649) RBC/HPF (test code = See_Comment [Autom ated message] 2076438110) The system [employer] generated this result transmitted ref erence range: 0 - 3 HP F. The reference range was not used to int erpret this result as normal/abnormal . WBC/HPF (test code = See_Comment [Autom ated message] 4974026688) The system [employer] generated this result transmitted ref erence range: 0 - 5 HP F. The reference range was not used to int erpret this result as normal/abnormal . BACTERIA (test code = Few Negative A 1996891143) MUCOUS (test code = Slight Negative LPF A 1568708299) SQ EPITH (test code = HPF 1412611743) Lab Interpretation (test Abnormal code = 18794-6) [facility] (NA, K, CL, CO2, GLUCOSE, BUN, CREATININE, CA)2020-07-30 17:36:08 Test Item Value Reference Range Interpretation Comments NA (test code = 138 mmol/L 135-145 0965967273) K (test code = 3.9 mmol/L 3.5-5.0 8517283952) CL (test code = 105 mmol/L 98-108 6280343403) CO2 TOTAL (test code 24 mmol/L 23-31 = 6997307756) AGAP (test code = 2-16 1582995609) BUN (test code = 12 mg/dL 7-23 7532916715) GLUCOSE (test code = 89 mg/dL 70-110 8095473671) CREATININE (test code 0.67 mg/dL 0.50-1.04 = 6065696554) CALCIUM (test code = 9.5 mg/dL 8.6-10.6 0647784464) eGFR (test code = mL/min/1.73m2 1037892631) CARLOS (test code = CARLOS) Association of [...] or urine or abnormalities in imaging tests). [facility] [id number] 17:32:46 Test Item Value Reference Range Interpretation [...] seconds. Lab Interpretation Normal (test code = 75932-3) [facility] AllenPROTHROMBIN TIME / [id number] 17:30:28 Test Item Value Reference Range Interpretation [...] tions. Lab Interpretation (test Normal code = 86905-6) [facility] [id number] 17:22:26 Test Item Value Reference Range Interpretation Comments WBC (test code = See_Comment [Automated 8590-2) message] The sy stem which generated this result transmitted reference range : 4.30 - 11.10 10*3/?L. The reference range was not used to interpret this result as normal/abnormal . RBC (test code = See_Comment [Automated 379-8) message] The sy stem which generated this [...] RDW-SD (test code = 39.0 fL 39.0-49.9 90751-2) RDW-CV (test code = 12.1 % 12.0-15.5 788-0) PLT (test code = See_Comment [Automated 777-3) message] The sy stem which generated this result transmitted reference range : 166 - 358 10*3/ ?L. The reference r yg was not used to interpret this result as normal/abnormal . MPV (test code = 9.5 fL 9.5-12.9 25968-9) NRBC/100 WBC (test See_Comment [Automat ed code = 3782215743) message] The system which generated this result transmitted reference range : 0.0 - 10.0 /100 WBCs. The refer ence range was not u sed to interpret th is result as normal/abnormal . NRBC x10^3 (test code <0.01 See_Comment [Auto mated = [id number]) message] The s ystem which generated this result transmitted reference range : 10*3/?L. The reference range was not used to interpret this result as normal/abnormal . GRAN MAT (NEUT) % 71.1 % (test code = 770-8) IMM GRAN % (test code 0.50 % = 8272077058) LYMPH % (test code = 19.7 % 736-9) MONO % (test code = 7.3 % 5905-5) EOS % (test code = 0.9 % 713-8) BASO % (test code = 0.5 % 706-2) GRAN MAT x10^3(ANC) 7.53 10*3/uL 1.88-7.09 H (test code = 5819710715) IMM GRAN x10^3 (test 0.05 10*3/uL 0.00-0.06 code = 3648210368) LYMPH x10^3 (test code 2.08 10*3/uL 1.32-3.29 = 731-0) MONO x10^3 (test code 0.77 10*3/uL 0.33-0.92 = 742-7) EOS x10^3 (test code = 0.10 10*3/uL 0.03-0.39 711-2) BASO x10^3 (test code 0.05 10*3/uL 0.01-0.07 = 704-7) Lab Interpretation Abnormal (test code = 71247-5) [facility] URINALYSIS W SPECIFIC [id number] 18:23:00 Test Item Value Reference Range Interpretation [...] POCT U APPEAR (test code = 3267) [facility] [id number] 18:23:00 Test Item Value Reference Range Interpretation Comments POCT PREG (test code = 1605) Positive On board controls acceptable with C Yes Line (test code = 3574) POCT PREG LOT # (test code = 3575) POCT PREG TEST DATE (test code = 3576) [facility] URINALYSIS W SPECIFIC [id number] 18:23:00 Test Item Value Reference Range Interpretation [...] POCT U APPEAR (test code = 3267) [facility] [id number] 18:23:00 Test Item Value Reference Range Interpretation Comments POCT PREG (test code = 1605) Positive On board controls acceptable with C Yes Line (test code = 3574) POCT PREG LOT # (test code = 3575) POCT PREG TEST DATE (test code = 3576) [facility] URINALYSIS W SPECIFIC [id number] 18:23:00 Test Item Value Reference Range Interpretation [...] POCT U APPEAR (test code = 3267) [facility] [id number] 18:23:00 Test Item Value Reference Range Interpretation Comments POCT PREG (test code = 1605) Positive On board controls acceptable with C Yes Line (test code = 3574) POCT PREG LOT # (test code = 3575) POCT PREG TEST DATE (test code = 3576) [facility] URINALYSIS W SPECIFIC [id number] 18:23:00 Test Item Value Reference Range Interpretation [...] POCT U APPEAR (test code = 3267) [facility] [id number] 18:23:00 Test Item Value Reference Range Interpretation Comments POCT PREG (test code = 1605) Positive On board controls acceptable with C Yes Line (test code = 3574) POCT PREG LOT # (test code = 3575) POCT PREG TEST DATE (test code = 3576) [facility] [id number] 17:28:00 Test Item Value Reference Range Interpretation Comments POCT PREG (test code = 1605) Negative On board controls acceptable with C Yes Line (test code = 3574) POCT PREG LOT # (test code = 3575) POCT PREG TEST DATE (test code = 3576) [facility] [id number] 17:28:00 Test Item Value Reference Range Interpretation Comments POCT PREG (test code = 1605) Negative On board controls acceptable with C Yes Line (test code = 3574) POCT PREG LOT # (test code = 3575) POCT PREG TEST DATE (test code = 3576) [facility] URINALYSIS W/O SPECIFIC [id number] 19:29:00 Test Item Value Reference Range Interpretation [...] code = 3257) . Negative - Negative [facility] URINALYSIS W/O SPECIFIC [id number] 13:17:00 Test Item Value Reference Range Interpretation [...] code = 3257) . Negative - Negative [facility] URINALYSIS W/O SPECIFIC [id number] 13:17:00 Test Item Value Reference Range Interpretation [...] code = 3257) . Negative - Negative [facility] URINALYSIS W/O SPECIFIC [id number] 13:17:00 Test Item Value Reference Range Interpretation [...] code = 3257) . Negative - Negative [facility] URINALYSIS W/O SPECIFIC [id number] 15:46:00 Test Item Value Reference Range Interpretation [...] Negative Lab Interpretation (test code = Abnormal 61297-9) [facility] URINALYSIS W/O SPECIFIC [id number] 15:46:00 Test Item Value Reference Range Interpretation [...] Negative Lab Interpretation (test code = Abnormal 89120-0) [facility] URINALYSIS W/O SPECIFIC [id number] 14:51:00 Test Item Value Reference Range Interpretation [...] code = 3257) . Negative - Negative [facility]"
[2021-12-30 14:12] LABS: Urine Blood Negative (Negative); Urine Glucose Negative (Negative); Urine Protein Negative (Negative)
[2021-12-30 14:21] LABS: Absolute Lymphocytes (CBC) 2.2 K/uL (0.7-4.9); Lymphocytes % 21.2 % (15.3-44.8); MCV 86.7 fL (80-100); MPV 7.2 fL (7.6-11.3); RBC Red Blood Cell Count 4.73 M/uL (3.86-4.86)
[2021-12-30 14:24] LABS: Urine RBC <5 /HPF (None Seen)
[2021-12-30 14:28] LABS: Albumin 4.3 g/dL (3.4-5.0); Bilirubin Total 0.6 mg/dL (0.2-1.0); Potassium 3.6 mmol/L (3.5-5.1)
--- NOTE | 2021-12-30 14:32 | RAD REPORT ---
EXAM DESCRIPTION: RAD - Shoulder Right 2 View - 12/30/2021 2:20 pm CLINICAL HISTORY: PAIN COMPARISON: No comparisons FINDINGS/IMPRESSION: No acute fracture. No malalignment. No significant focal degenerative changes.
--- NOTE | 2021-12-30 14:53 | ER ---
Nurse's Notes [facility] Name: Rae Gomez Age: 26 yrs Sex: Female : 1995 Arrival Date: 12/30/2021 Time: 12:44 Bed 28 Private MD: Diagnosis: Pain in right shoulder;Lower abdominal pain, unspecified Presentation: 12/30 12:59 Chief complaint: Patient states: abdominal pain that radiates to the shoulders, kr3 relieved after having bowel movement 2 hrs ago. also has been having trouble staying awake while driving for 2 months. no appetite for 1 month. Coronavirus screen: Vaccine status: Patient reports receiving the 2nd dose of the covid vaccine. Client denies travel out of the [place] in the last 14 days. Ebola Screen: Patient denies travel to an Ebola-affected area in the 21 days before illness onset. Initial Sepsis Screen: Does the patient meet any 2 criteria? No. Patient's initial sepsis screen is negative. Does the patient have a suspected source of infection? Yes: Acute abdominal pain. Risk Assessment: Do you want to hurt yourself or someone else? Patient reports no desire to harm self or others. Onset of symptoms was December 30, 2021. 12:59 Method Of Arrival: Ambulatory kr3 12:59 Acuity: PROMISE 3 kr3 Triage Assessment: 13:07 General: Appears in no apparent distress. comfortable, Behavior is calm, cooperative, kr3 appropriate for age. Pain: Denies pain. Historical: - Allergies: 13:05 No Known Allergies; kr3 - PMHx: 13:05 hypertension during ; kr3 - PSHx: 13:05 Cholecystectomy; kr3 - Immunization history:: Adult Immunizations up to date. - Social history:: Smoking status: Patient denies any tobacco usage or history of. Screenin:16 Abuse screen: Denies threats or abuse. Denies injuries from another. Nutritional hb screening: No deficits noted. Tuberculosis screening: No symptoms or risk factors identified. Fall Risk None identified. Assessment: 14:15 General: Appears in no apparent distress. Behavior is calm, cooperative. Pain: Pain hb currently is 0 out of 10 on a pain scale. at worst was 5 out of 10 on a pain scale. Neuro: Level of Consciousness is awake, alert, obeys commands, Oriented to person, place, time, situation. Cardiovascular: Patient's skin is warm and dry. Respiratory: Respiratory pattern is regular, symmetrical. GI: No signs and/or symptoms were reported involving the gastrointestinal system. : No signs and/or symptoms were reported regarding the genitourinary system. EENT: No signs and/or symptoms were reported regarding the EENT system. Derm: Skin is pink, warm \T\ dry. Musculoskeletal: No signs and/or symptoms reported regarding the musculoskeletal system. Vital Signs: 12:59 BP 130 / 85; Pulse 81; Resp 16; Temp 98.3; Pulse Ox 99% on R/A; Weight 81.19 kg; Height kr3 5 ft. 4 in. (162.56 cm); Pain 0/10; 12:59 Body Mass Index 30.72 (81.19 kg, 162.56 cm) kr3 ED Course: 12:44 Patient arrived in ED. mr 13:05 Triage completed. kr3 13:07 Arm band placed on right wrist. Patient placed in an exam room, on a stretcher. kr3 13:17 Vic Irving PA is PHCP. cp 13:17 Adolfo Mccord MD is Attending Physician. cp 13:31 Stefanie Pickett, TEJA is Primary Nurse. hb 14:02 Inserted saline lock: 20 gauge in right antecubital area, using aseptic technique. hb Blood collected. 14:16 Patient has correct armband on for positive identification. hb 14:22 XRAY Shoulder RIGHT 2 view In Process Unspecified. EDMS 14:51 Basil Block MD is Referral Physician. cp Administered Medications: No medications were administered Medication: 14:47 VIS not applicable for this client. hb Outcome: 14:52 Discharge ordered by . cp 15:19 Patient left the ED. hb Signatures: Dispatcher [employer] EDMS Hollie Bartlett mr Vic Irving PA PA cp Baxter, Heather, RN RN Kylie Moreno RN RN kr3
--- NOTE | 2021-12-30 14:53 | EDPHYS ---
Physician Documentation [facility] Name: Rae Gomez Age: 26 yrs Sex: Female : 1995 Arrival Date: 12/30/2021 Time: 12:44 Bed 28 Private MD: ED Physician Adolfo Mccord HPI: 12/30 13:50 This 26 yrs old Female presents to ER via Ambulatory with complaints of Abdominal Pain, cp Shoulder Pain, Decreased Appetite. 13:50 The patient presents with abdominal pain mid and lower abdomen. Onset: The cp symptoms/episode began/occurred since having cholecystectomy performed 2 years ago. 13:50 The symptoms do not radiate. cp 13:50 Associated signs and symptoms: Pertinent positives: right shoulder pain, Pertinent cp negatives: blood in stools, chest pain, fever, headache, vomiting. The symptoms are described as intermittent. Modifying factors: The symptoms are alleviated by after bowel movement. Severity of pain: in the emergency department the pain has resolved and did so earlier today. 13:50 Patient reports she was concerned pain could be due to pancreas. Reports pain is lower cp abdomen when it occurs. Historical: - Allergies: 13:05 No Known Allergies; kr3 - PMHx: 13:05 hypertension during ; kr3 - PSHx: 13:05 Cholecystectomy; kr3 - Immunization history:: Adult Immunizations up to date. - Social history:: Smoking status: Patient denies any tobacco usage or history of. ROS: 13:55 Constitutional: Negative for body aches, chills, fever, poor PO intake. cp 13:55 Eyes: Negative for injury, pain, redness, and discharge. cp 13:55 ENT: Negative for drainage from ear(s), ear pain, sore throat, difficulty swallowing, difficulty handling secretions. 13:55 Cardiovascular: Negative for chest pain, edema, palpitations. 13:55 Respiratory: Negative for cough, shortness of breath, wheezing. 13:55 Abdomen/GI: Positive for abdominal pain, of the umbilical area, right lower quadrant and left lower quadrant, Negative for vomiting, diarrhea, constipation, abdominal distension, anorexia, black/tarry stool, rectal bleeding. 13:55 Back: Positive for of the right upper back, Negative for injury or acute deformity, decreased range of motion. 13:55 : Negative for urinary symptoms, vaginal bleeding, vaginal discharge. 13:55 MS/extremity: Positive for pain, of the right shoulder. 13:55 Neuro: Negative for altered mental status, dizziness, headache, weakness. 13:55 All other systems are negative. Exam: 14:00 Constitutional: The patient appears in no acute distress, alert, awake, cp non-diaphoretic, non-toxic, well developed, well nourished. 14:00 Head/Face: Normocephalic, atraumatic. cp 14:00 Eyes: Periorbital structures: appear normal, Conjunctiva: normal, no exudate, no injection, Sclera: no appreciated abnormality, Lids and lashes: appear normal, bilaterally. 14:00 ENT: External ear(s): are unremarkable, Nose: is normal, Mouth: Lips: moist, Oral mucosa: pink and intact, moist, Posterior pharynx: Airway: no evidence of obstruction, patent. 14:00 Neck: ROM/movement: is normal, is supple, without pain, no range of motions limitations, no meningismus, no nuchal rigidity. 14:00 Chest/axilla: Inspection: normal. 14:00 Cardiovascular: Rate: normal, Rhythm: regular, Edema: is not appreciated, JVD: is not appreciated. 14:00 Respiratory: the patient does not display signs of respiratory distress, Respirations: normal, no use of accessory muscles, no retractions, labored breathing, is not present, Breath sounds: are clear throughout, no decreased breath sounds, no stridor, no wheezing. 14:00 Abdomen/GI: Inspection: abdomen appears normal, Bowel sounds: active, all quadrants, Palpation: abdomen is soft and non-tender, in all quadrants. 14:00 Back: pain, is absent, ROM is normal. 14:00 Neuro: Orientation: to person, place \T\ time. Mentation: is normal, Motor: moves all fours, strength is normal, Sensation: is normal. Vital Signs: 12:59 BP 130 / 85; Pulse 81; Resp 16; Temp 98.3; Pulse Ox 99% on R/A; Weight 81.19 kg; Height kr3 5 ft. 4 in. (162.56 cm); Pain 0/10; 12:59 Body Mass Index 30.72 (81.19 kg, 162.56 cm) kr3 MDM: 13:17 Patient medically screened. 14:52 Data reviewed: vital signs, nurses notes, lab test result(s), radiologic studies, plain cp films. 14:52 Differential diagnosis: diverticulitis, Endometriosis, gastritis, non-specific abd cp pain, pancreatitis. Test interpretation: by ED physician or midlevel provider: plain radiologic studies. Counseling: I had a detailed discussion with the patient and/or guardian regarding: the historical points, exam findings, and any diagnostic results supporting the discharge/admit diagnosis, lab results, radiology results, the need for outpatient follow up, a family practitioner, to return to the emergency department if symptoms worsen or persist or if there are any questions or concerns that arise at home. 12/30 13:42 Order name: CBC with Diff; Complete Time: 14:42 12/30 14:42 Interpretation: Normal except: MPV 7.2. 12/30 13:42 Order name: CMP; Complete Time: 14:42 12/30 14:42 Interpretation: Normal except: AST 13; TP 9.0; GLOB 4.7; A/G 0.9. 12/30 13:42 Order name: Lipase; Complete Time: 14:42 12/30 14:42 Interpretation: LIP 88; Reviewed. 12/30 13:42 Order name: Urine Microscopic Only; Complete Time: 14:42 12/30 14:12 Order name: Urine Dipstick-Ancillary; Complete Time: 14:42 EDMS 12/30 13:42 Order name: IV Saline Lock; Complete Time: 14:07 12/30 13:42 Order name: Labs collected and sent; Complete Time: 14:07 12/30 13:42 Order name: Urine Dipstick-Ancillary (obtain specimen); Complete Time: 14:07 12/30 13:42 Order name: Urine Test (obtain specimen); Complete Time: 14:07 12/30 13:42 Order name: XRAY Shoulder RIGHT 2 view; Complete Time: 14:42 12/30 14:43 Interpretation: Reviewed. cp Administered Medications: No medications were administered Disposition: 17:59 Co-signature as Attending Physician, Adolfo Mccord MD I agree with the assessment and kdr plan of care. Disposition Summary: 12/30/21 14:52 Discharge Ordered Location: Home cp Problem: new cp Symptoms: have improved cp Condition: Stable cp Diagnosis - Pain in right shoulder cp - Lower abdominal pain, unspecified cp Followup: cp - With: Basil Block MD - When: 2 - 3 days - Reason: abdominal pain Discharge Instructions: - Discharge Summary Sheet cp - Abdominal Pain, Adult cp - Shoulder Pain cp - Shoulder Range of Motion Exercises cp Forms: - Medication Reconciliation Form cp - Thank You Letter cp - Antibiotic Education cp - Prescription Opioid Use cp Prescriptions: - Diclofenac Sodium 75 mg Oral tablet,delayed release (DR/EC) - take 1 tablet by ORAL route 2 times per day; 20 tablet; Refills: 0, Product cp Selection Permitted Signatures: Dispatcher [employer] EDMS Adolfo Mccord MD MD [facility] Vic Irving PA PA cp Kylie Locke RN RN kr3 Corrections: (The following items were deleted from the chart) 12/31 14:57 12/30 13:50 Onset: The symptoms/episode began/occurred since having cholecystectomy cp performed in , cp
[2021-12-31 20:59] VITALS: BP 130/85; TEMP 98.3; O2SAT 99
== END 2021-12-30 15:19 | disposition home or self-care (01) ==
LOC: ER 12:43
DX: R10.30 Lower abdominal pain, unspecified (principal); M25.511 Pain in right shoulder
CPT/HCPCS: 36415; 80053; 81003; 81015; 83690; 85025; 99283